=== PATIENT | male | born 1945 | race Caucasian/White ===

== ENCOUNTER 2019-10-06 10:25 | Day surgery (SDC) | payer MEDICARE, SELFPAY ==
[2019-10-03 15:03] VITALS: BMI 39.1
[2019-10-06 10:47] VITALS: BP 151/51; PULSE 86; RESP 18; TEMP 36.2
[2019-10-06] MEDS: sodium chloride 0.9% 1,000 ML 30 ML IV (10:59)
[2019-10-06 11:20] LABS: Glucose Point of Care 208 mg/dL (70-110)
--- NOTE | 2019-10-06 11:22 | P.PN_ITS ---
Pre-Anesthetic Assessment Pre-Anesthetic Assessment: Height/Weight: Height 1.75 m Weight 120.202 kg Temp Pulse Resp BP 97.2 F L 86 18 151/51 10/06/19 10:47 10/06/19 10:47 10/06/19 10:47 10/06/19 10:47 Proposed Procedure: Operation Date: 10/06/19 12:00 Proposed Procedures p Lymph Node Biopsy Cervical 09613 R59.0(Not Applicable) - Piyush Sanchez M.D Last intake: Intake Last Liquid Date 10/06/19 Last Liquid Time 07:30 Last Solid Date 10/05/19 Last Solid Time 17:00 Social: Social History: No alcohol and No tobacco Exam: Pre-Anes Outpt Exam: alert, oriented x 3, clear to auscultation bilaterally and regular rate & rhythm Airway: Submandibular: WNL Cervical ROM: WNL MP: 2 History/ROS: No significant history except as noted CV/HEM: CV/HEM: Afib, CAD, HTN and MD Metabolic: Metabolic: DM and Morbid obesity Musc/skel: Musc/skel: OA/DJD and RA Anesthetic Plan: ASA status: III Anesthesia: Anesthesia Evaluation and MAC Risk of > 500 ml blood loss (7ml/kg in children): No Meds/Allergies Current Medications: Current Medications Generic Name Dose Route Start Last Admin Trade Name Freq PRN Reason Stop Dose Admin Sodium Chloride 1,000 mls @ 30 ml s/hr 10/06/19 09:00 10/06/19 10:59 Sodium Chloride 0.9% IV 10/07/19 08:59 30 mls/hr .Q24H JESSICA Administration PFSH Anesthesia PFSH: Medical History (Updated 10/06/19 @ 11:23 by Rambo Roach MD) Arthritis (Acute) Atrial fibrillation (Acute) Chronic kidney disease (Acute) Coronary artery disease (Acute) Gastroesophageal reflux (Acute) Heart murmur (Acute) Hypertension (Acute) Type 1 diabetes mellitus (Acute) Surgical History (Updated 10/06/19 @ 11:23 by Rambo Roach MD) History of heart surgery (Acute) History of knee replacement (Acute) Social History Smoking and tobacco status: former smoker Alcohol intake: never Data Anesthesia Labs: Other Labs: Laboratory Results - last 48 hr 10/06/19 10:58 POC Glucose 208 Cardiac Studies: No Data to Display
[2019-10-06 13:32] VITALS: BP 131/51; PULSE 60; RESP 16; TEMP 36.7; O2SAT 95
--- NOTE | 2019-10-06 13:49 | P.OP_ITS ---
Operative Report Post-Operative Note: Date of procedure: 10/06/19 Preop Diagnosis: lymphadenopathy Post-op diagnosis: same Procedure Done: lymph node biopsy Specimens removed/disposition: lymph node sent to pathology Surgeon: Piyush Sanchez Anesthesia: MAC Complications: none Condition: stable Disposition: same day Operative Report: Brief History: there is a 74-year-old male with persistent cervical lymphadenopathy despite medical treatment for cultures and alternatives were discussed and informed consent was obtained to proceed with re-biopsy of lymph node per pathology request. Procedure: the patient was taken to the operating room under satisfactory IV sedation the left neck was prepped draped and injected. The previous incision was opened and dissection was carried down to the deep cervical tissue. The lymph node is identified measuring approximately 8 mm in diameter. This was removed. This was sent fresh to pathology pathology was contacted directly to let them know the specimen was being submitted for special studies at their request. The incision was closed w ith layered interrupted Vicryl and chromic suture. Antibiotic ointment was applied. The patient tolerated procedure well. He was taken to recovery room where he was observed. During the observation time. Care instructions and counseling were given including detailed written and verbal instructions. Once the patient at discharge criteria he was discharged in satisfactory and stable condition. Coding Level of Care Code Acute Music Rehabilitation Therapist for Karlos Acosta
[2019-10-06 13:57] VITALS: BP 172/62; PULSE 56; RESP 18; O2SAT 95
[2019-11-06 10:13] LABS: Miscellaneous Test See Scanned Lab Rpt
== END 2019-10-06 14:31 | disposition home or self-care (01) ==
PROVIDERS: Family Provider Nurse Practitioner Family; PCP Nurse Practitioner Family; Visit Provider Otolaryngology
PROC: (CPT 38510; principal; 2019-10-06 12:00)
DX: C82.41 Follicular lymphoma grade IIIb, lymph nodes of head, face, and neck (principal); I48.20 Chronic atrial fibrillation, unspecified; I25.10 Atherosclerotic heart disease of native coronary artery without angina pectoris; E10.22 Type 1 diabetes mellitus with diabetic chronic kidney disease; I12.9 Hypertensive chronic kidney disease with stage 1 through stage 4 chronic kidney disease, or unspecified chronic kidney disease; N18.9 Chronic kidney disease, unspecified; I25.2 Old myocardial infarction; E66.01 Morbid (severe) obesity due to excess calories; Z68.39 Body mass index [BMI] 39.0-39.9, adult; M19.90 Unspecified osteoarthritis, unspecified site; E78.2 Mixed hyperlipidemia; E10.21 Type 1 diabetes mellitus with diabetic nephropathy; E03.9 Hypothyroidism, unspecified; Z82.3 Family history of stroke; Z82.49 Family history of ischemic heart disease and other diseases of the circulatory system; F17.220 Nicotine dependence, chewing tobacco, uncomplicated; Z79.4 Long term (current) use of insulin; Z79.82 Long term (current) use of aspirin
CPT/HCPCS: 38510; 36416; 82962; 87015; 87070; 87102; 87116; 87176; 87205; 87206; 87801; 88184; 88185; 88305; 88341; 88342; 99221; J2001; J2704; J7030

== ENCOUNTER → 2019-10-14 09:49 | Outpatient (BNVA) | payer MEDICARE, SELFPAY | PROVIDERS: Family Provider Nurse Practitioner Family; PCP Nurse Practitioner Family; Visit Provider Otolaryngology | DX: Z48.89 Encounter for other specified surgical aftercare (principal); C85.90 Non-Hodgkin lymphoma, unspecified, unspecified site | CPT/HCPCS: 36415; 80053; 83615; 85025; 99024; 99214 ==

== ENCOUNTER 2019-10-17 07:52 | Outpatient (CLI) | payer MEDICARE, SELFPAY ==
--- NOTE | 2019-10-17 10:39 | ONC FU_ITS ---
Dr. Bob Patient Follow-Up Note Patient: Julius Blake Unit #: [id number]: 1945 Dicatated By: Eliud Bob M.D.Date of Visit:Oct 17, 2019 Onc Med Follow-up/Prog Note Chief Complaint: Lymphoma. 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 He has multiple medical illnesses including hypertension, hyperlipidemia, type 2 diabetes, chronic kidney disease, coronary artery disease, atrial fibrillation, and carotid stenosis. He has had previous coronary artery bypass surgery and right carotid endarterectomy. He had presented with a knot on the left side of his neck, first noticed sometime in August. He was referred to Dr. Sanchez. A noncontrast neck CT on 09/09/2019 showed level 1A submental lymph nodes measuring up to 13 mm, level 1B submandibular lymph nodes, including a node on the left side measuring 17 mm. A level 2 jugular lymph node measured up to 2 cm, and smaller level 2 lymph nodes on the left side measured up to 12 mm. Level 3 nodes on the left side measured up to 13 mm. There were no enlarged lymph nodes noted in the superior mediastinum. On 09/15/2019 he underwent excisional biopsy of a left cervical lymph node. Pathology was nondiagnostic. He then underwent repeat left cervical lymph node biopsy on 10/06/2019. Pathology showed follicular lymphoma, grade 3B. Also reported was a focal proliferation of Langerhans' cells, and a component of Langerhans' cell neoplasm was not excluded. Furthermore, there was noted to be a discrepancy between the flow cytometry studies and the histologic findings. As such, a prognostic profile by FISH has been requested to rule out a double hit lymphoma, and those results are pending. He is seen for further management of the lymphoma. He has not been feeling very good generally, though most of that is chronic. About a month ago he had been feeling ill with fatigue, nausea, anorexia, and night sweating, and during that time his weight had dropped at least 15 pounds. Those symptoms lasted about 3 weeks, but they have mostly resolved now. However, he has chronically had limited activity. His ECOG score is 2. He has shortness of breath with activity. He has cough productive of white sputum. He does not complain of chest pain. He occasionally has heart racing. He currently is not having any GI symptoms. Bowel and bladder function have been okay. He has chronic back pain. He also has pain in his legs, and he has been having muscle cramps in his legs at night frequently. He has no focal neurologic symptoms. Medications: Amiodarone HCl 1 Tablet (of 100 mg) Oral b.i.d., Aspirin 1 Tablet (of 325 mg) Oral daily, Benicar 1 Tablet (of 40 mg) Oral daily, Chlorthalidone 1 Tablet (of 25 mg) Oral daily, Furosemide 1 Tabminder (of 40 mg) Tablet Oral daily PRN, hydrALAZINE HCl 2 Tablet (of 50 mg) Oral t.i.d., Levemir Flexpen Subcutaneous Take as Directed, Lyrica 1 - 2 Capsule (of 75 mg) Oral daily, NovoLIN 70/30 25 Units (of (70-30) 100 Units/mL) Subcutaneous b.i.d., Protonix 1 Capsule (of 40 mg) Tablet, enteric coated Oral daily, Simvastatin 1 Tablet (of 40 mg) Oral daily, Synthroid 1 Tablet (of 150 mcg) Oral daily, Vitamin D 1 Tablet (of 80835 Units) Oral q 7 days Allergies: No Known Allergies. Review of Systems: Constitutional - His energy is fair. He is up and around at home. 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 He had lost about 15 pounds, but it is almost back to his normal. He was having low fever, chills and sweating when he was sick. He has not had any problems in a few weeks. ECOG score is 2, Eyes - No change in vision, ENMT - His hearing has declined. No sinus congestion/drainage. No mouth sores. No sore throat or difficulty swallowing, Hematologic/Lymphatic - He bruises easily, Respiratory - He has shortness of breath with activity. He has a cough that produces white phlegm. No pleuritic pain or hemoptysis, Cardiovascular - No angina pain. His heart racas occasionally, Gastrointestinal - No nausea or vomiting. No heartburn or acid reflux. No diarrhea or constipation. No blood in the stool or black stools, Genitourinary (M) - No dysuria or hematuria. No urinary frequency. No urgency or incontinence, Musculoskeletal - He has back pain. He has cramping in his legs quite often, Integumentary - No skin complications, Neurologic - No headache. He has occasional dizziness. He sometimes feels shaky. No numbness/paresthesias or other focal neurologic symptoms, Psychiatric - No anxiety or depression. No insomnia. Vital Signs: Performed on Oct 17, 2019 08:49 Height - 68.00 in Weight - 272.4 lbs (HIGH) BSA - 2.33 sq.m BMI - 41.42 (HIGH) Temperature - 97.8 F (LOW) Pulse - 59 /min (LOW) Respiration - 24 /min BP - 180/57 mm(hg) (HIGH) O2 Sat - 96 % Pain - 8 Physical Examination: Constitutional - He appears somewhat weak generally, and he has poor mobility, Eyes - Sclerae nonicteric. Conjunctivae clear, ENMT - No lesions noted in the oral cavity, Neck - No mass or thyromegaly. The recent biopsy incision at the base of the posterior left neck appears well-healed. There appears to be a palpable node just inferior to it, Hematologic/Lymphatic - I don't feel any other cervical, clavicular, or axillary adenopathy, Respiratory - Lungs sound clear, Cardiovascular - Heart rhythm is regular. There is a III/ systolic murmur. There is no gallop or rub noted, Abdomen - Distended. Liver and spleen do not appear overtly enlarged. There is no abdominal mass or ascites noted and there is no inguinal adenopathy, Back/Spine - No spine or CVA tenderness noted, Extremities - No edema. Pedal pulses are palpable bilaterally, Integumentary - No rashes. No suspicious skin lesions noted, Neurologic - No focal neurologic deficits noted. Lab/Imaging: His laboratory studies from 10/14/2019 included CBC showing hemoglobin 10.7 g, white blood cell count 6400, and platelet count 257,000. Comprehensive metabolic profile showed elevated BUN and creatinine at 48 and 2.3 mg/dL. Bilirubin and liver enzymes were normal. Albumin was normal at 4.0 g/dL. LDH was mildly elevated at 250/225 U/L. Impression: 1. Patient with follicular lymphoma, grade 3B, involving left cervical lymph nodes. Studies are curling in process to rule out double hit lymphoma. 2. He has chronic illness and generally poor performance status. His other medical illnesses include: 3. Hypertension. 4. Hyperlipidemia. 5. Type 2 diabetes. 6. Chronic kidney disease. 7. Coronary artery disease with previous coronary artery bypass. 8. Atrial fibrillation. 9. Carotid stenosis with previous right carotid endarterectomy. 10. Hypothyroidism. 11. Degenerative arthritis. Plan: The pathology findings were reviewed with the patient and his . We discussed the clinical implications. He has a grade 3B follicular lymphoma, which is at least intermediate grade. Studies are in progress to rule out double hit lymphoma. He has not completed staging, but there appear to be multiple involved nodes in the left side of the neck by CT scan. If his disease is localized to that area, he potentially could be treated with a short course of chemotherapy and involved field radiation. For more extensive disease, a longer course of chemotherapy would be required, and that will be problematic with his significant underlying medical illnesses and poor performance status. At this point I will go ahead and schedule him for a staging PET/CT. I also will schedule an echocardiogram, as we will need to know the status of his LV function for treatment planning. I will see him again for further discussion of treatment with those results are available. Signed By: Eliud Bob M.D. <<Signature on File>>
--- NOTE | 2019-11-11 14:25 | ONC CON_ITS ---
Dr. Bob New Patient Note Patient: Julius Blake Unit #: [id number]: 1945 Dicatated By: Eliud Bob M.D.Date of Visit: Oct 17, 2019 Onc MED New Patient/Consult Referring Physician: Piyush Sanchez M.D. Chief Complaint: Lymphoma. 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 He has multiple medical illnesses including hypertension, hyperlipidemia, type 2 diabetes, chronic kidney disease, coronary artery disease, atrial fibrillation, and carotid stenosis. He has had previous coronary artery bypass surgery and right carotid endarterectomy. He had presented with a knot on the left side of his neck, first noticed sometime in August. He was referred to Dr. Sanchez. A noncontrast neck CT on 09/09/2019 showed level 1A submental lymph nodes measuring up to 13 mm, level 1B submandibular lymph nodes, including a node on the left side measuring 17 mm. A level 2 jugular lymph node measured up to 2 cm, and smaller level 2 lymph nodes on the left side measured up to 12 mm. Level 3 nodes on the left side measured up to 13 mm. There were no enlarged lymph nodes noted in the superior mediastinum. On 09/15/2019 he underwent excisional biopsy of a left cervical lymph node. Pathology was nondiagnostic. He then underwent repeat left cervical lymph node biopsy on 10/06/2019. Pathology showed follicular lymphoma, grade 3B. Also reported was a focal proliferation of Langerhans' cells, and a component of Langerhans' cell neoplasm was not excluded. Furthermore, there was noted to be a discrepancy between the flow cytometry studies and the histologic findings. As such, a prognostic profile by FISH has been requested to rule out a double hit lymphoma, and those results are pending. He is seen for further management of the lymphoma. He has not been feeling very good generally, though most of that is chronic. About a month ago he had been feeling ill with fatigue, nausea, anorexia, and night sweating, and during that time his weight had dropped at least 15 pounds. Those symptoms lasted about 3 weeks, but they have mostly resolved now. However, he has chronically had limited activity. His ECOG score is 2. He has shortness of breath with activity. He has cough productive of white sputum. He does not complain of chest pain. He occasionally has heart racing. He currently is not having any GI symptoms. Bowel and bladder function have been okay. He has chronic back pain. He also has pain in his legs, and he has been having muscle cramps in his legs at night frequently. He has no focal neurologic symptoms. Past Medical History: His medical history includes atrial fibrillation, chronic kidney disease, coronary artery disease, degenerative arthritis, hyperlipidemia, hypertension, hypothyroidism, and type II diabetes. Past Surgical History: His surgical/procedural history includes right carotid endarterectomy in 2009, coronary artery bypass in 2008, and left total knee arthroplasty in 2006. Medications: Amiodarone HCl 1 Tablet (of 100 mg) Oral b.i.d., Aspirin 1 Tablet (of 325 mg) Oral daily, Benicar 1 Tablet (of 40 mg) Oral daily, Chlorthalidone 1 Tablet (of 25 mg) Oral daily, Furosemide 1 Tabminder (of 40 mg) Tablet Oral daily PRN, hydrALAZINE HCl 2 Tablet (of 50 mg) Oral t.i.d., Levemir Flexpen Subcutaneous Take as Directed, Lyrica 1 - 2 Capsule (of 75 mg) Oral daily, NovoLIN 70/30 25 Units (of (70-30) 100 Units/mL) Subcutaneous b.i.d., Protonix 1 Capsule (of 40 mg) Tablet, enteric coated Oral daily, Simvastatin 1 Tablet (of 40 mg) Oral daily, Synthroid 1 Tablet (of 150 mcg) Oral daily, Vitamin D 1 Tablet (of 02715 Units) Oral q 7 days Allergies: No Known Allergies. Social History: Mr. Blake is . Mr. Blake no longer smokes. He has no history of drinking. He has indicated exposure to the following products: chewing tobacco. He has a history of smoking 1 pack of cigarettes daily, but he had quit smoking in 1982. He does chew tobacco, reported at 5 cans weekly. He had some alcohol use when he was a teenager. He quit by age 18. Family History: Father of stroke at age 82. Mother of pancreatic cancer, also at age 82. He had a total of 21 siblings, which included 6 full brothers and 6 full sisters. Two brothers had colon cancer. At least 1 brother and 1 sister had diabetes. A daughter with cerebral palsy at age 33. A grandson has been treated for testicular cancer. Review Of Symptoms: Constitutional - His energy is fair. He is up and around at home. 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 He had lost about 15 pounds, but it is almost back to his normal. He was having low fever, chills and sweating when he was sick. He has not had any problems in a few weeks. ECOG score is 2, Eyes - No change in vision, ENMT - His hearing has declined. No sinus congestion/drainage. No mouth sores. No sore throat or difficulty swallowing, Hematologic/Lymphatic - He bruises easily, Respiratory - He has shortness of breath with activity. He has a cough that produces white phlegm. No pleuritic pain or hemoptysis, Cardiovascular - No angina pain. His heart racas occasionally, Gastrointestinal - No nausea or vomiting. No heartburn or acid reflux. No diarrhea or constipation. No blood in the stool or black stools, Genitourinary (M) - No dysuria or hematuria. No urinary frequency. No urgency or incontinence, Musculoskeletal - He has back pain. He has cramping in his legs quite often, Integumentary - No skin complications, Neurologic - No headache. He has occasional dizziness. He sometimes feels shaky. No numbness/paresthesias or other focal neurologic symptoms, Psychiatric - No anxiety or depression. No insomnia. Vital Signs: Performed on Oct 17, 2019 08:49: 8, 41.42 (HIGH), 2.33 sq.m, 68.00 in, 96 %, 59 /min (LOW), 24 /min, 180/57 mm(hg) (HIGH), 97.8 F (LOW), and 272.4 lbs (HIGH). Physical Examination: Constitutional - He appears somewhat weak generally, and he has poor mobility, Eyes - Sclerae nonicteric. Conjunctivae clear, ENMT - No lesions noted in the oral cavity, Neck - No mass or thyromegaly. The recent biopsy incision at the base of the posterior left neck appears well-healed. There appears to be a palpable node just inferior to it, Hematologic/Lymphatic - I don't feel any other cervical, clavicular, or axillary adenopathy, Respiratory - Lungs sound clear, Cardiovascular - Heart rhythm is regular. There is a III/ systolic murmur. There is no gallop or rub noted, Abdomen - Distended. Liver and spleen do not appear overtly enlarged. There is no abdominal mass or ascites noted and there is no inguinal adenopathy, Back/Spine - No spine or CVA tenderness noted, Extremities - No edema. Pedal pulses are palpable bilaterally, Integumentary - No rashes. No suspicious skin lesions noted, Neurologic - No focal neurologic deficits noted. Impression: 1. Patient with follicular lymphoma, grade 3B, involving left cervical lymph nodes. Studies are curling in process to rule out double hit lymphoma. 2. He has chronic illness and generally poor performance status. His other medical illnesses include: 3. Hypertension. 4. Hyperlipidemia. 5. Type 2 diabetes. 6. Chronic kidney disease. 7. Coronary artery disease with previous coronary artery bypass. 8. Atrial fibrillation. 9. Carotid stenosis with previous right carotid endarterectomy. 10. Hypothyroidism. 11. Degenerative arthritis. Plan: The pathology findings were reviewed with the patient and his . We discussed the clinical implications. He has a grade 3B follicular lymphoma, which is at least intermediate grade. Studies are in progress to rule out double hit lymphoma. He has not completed staging, but there appear to be multiple involved nodes in the left side of the neck by CT scan. If his disease is localized to that area, he potentially could be treated with a short course of chemotherapy and involved field radiation. For more extensive disease, a longer course of chemotherapy would be required, and that will be problematic with his significant underlying medical illnesses and poor performance status. At this point I will go ahead and schedule him for a staging PET/CT. I also will schedule an echocardiogram, as we will need to know the status of his LV function for treatment planning. I will see him again for further discussion of treatment with those results are available. Signed By: Eliud Bob M.D. <<Signature on File>>
== END 2019-10-17 07:53 | disposition home or self-care (01) ==
LOC: ONCMED 07:52
PROVIDERS: Family Provider Nurse Practitioner Family; PCP Nurse Practitioner Family; Referring Provider Otolaryngology; Visit Provider Internal Medicine Medical Oncology
DX: C82.21 Follicular lymphoma grade III, unspecified, lymph nodes of head, face, and neck (principal); E78.5 Hyperlipidemia, unspecified; E11.22 Type 2 diabetes mellitus with diabetic chronic kidney disease; I12.9 Hypertensive chronic kidney disease with stage 1 through stage 4 chronic kidney disease, or unspecified chronic kidney disease; N18.9 Chronic kidney disease, unspecified; I25.10 Atherosclerotic heart disease of native coronary artery without angina pectoris; I48.91 Unspecified atrial fibrillation; G89.29 Other chronic pain; E03.9 Hypothyroidism, unspecified; M19.90 Unspecified osteoarthritis, unspecified site; Z79.4 Long term (current) use of insulin; Z95.1 Presence of aortocoronary bypass graft
CPT/HCPCS: 99205

== ENCOUNTER 2019-10-21 15:09 | Outpatient (CLI) | payer MEDICARE, SELFPAY ==
--- NOTE | 2019-10-21 15:21 | USCV_ITS ---
Julius Blake Age: 74 Gender: M : 1945 Exam Date: 10/21/2019 15:36 Ordering Phys: Eliud Bob MD Technologist: Sirisha Boateng Exam Location: [facility] – [place] Indication: CAD, heart murmur BP: / HR: 67 Rhythm: Sinus Technical Quality: Fair MEASUREMENTS (Male / Female) Normal Values 2D ECHO LV Diastolic Diameter PLAX 4.5 cm 4.2 - 5.9 / 3.9 - 5.3 cm LV Systolic Diameter PLAX 1.5 cm IVS Diastolic Thickness 1.4 cm 0.6 - 1.0 / 0.6 - 0.9 cm IVS Systolic Thickness 2.0 cm LVPW Diastolic Thickness 0.9 cm 0.6 - 1.0 / 0.6 - 0.9 cm LVPW Systolic Thickness 1.9 cm LVOT Diameter 2.0 cm LV Ejection Fraction 2D Teich 93.4 % LV Ejection Fraction MOD 2C 78.7 % LV Ejection Fraction 2C AL 78.1 % LA Diameter 4.6 cm LA Width 4.2 cm LA Height 5.7 cm RA Width 4.4 cm RA Height 4.9 cm M-MODE LV Diastolic Diameter MM 4.2 cm 4.2 - 5.9 / 3.9 - 5.3 cm LV Systolic Diameter MM 2.6 cm LV Ejection Fraction MM Teich 69.6 % IVS Diastolic Thickness MM 1.1 cm 0.6 - 1.0 / 0.6 - 0.9 cm IVS Systolic Thickness MM 1.6 cm LVPW Diastolic Thickness MM 1.1 cm 0.6 - 1.0 / 0.6 - 0.9 cm LVPW Systolic Thickness MM 2.5 cm Aortic Annulus Diameter 2.7 cm LA Ao Ratio MM 1.7 MV E Point Septal Separation 0.3 cm DOPPLER AV Peak Velocity 241.0 cm/s LVOT Peak Velocity 138.0 cm/s AV Area Cont Eq vti 1.6 cm squared AV Area Cont Eq pk 1.9 cm squared MV Peak Velocity 121.0 cm/s MV Area PHT 2.2 cm squared Mitral E to A Ratio 0.9 MV E' Velocity 7.0 cm/s Mitral E to MV E' Ratio 15.2 Mitral E to LV E' Lateral Ratio 13.4 Mitral E to LV E' Septal Ratio 17.7 TR Peak Velocity 98.0 cm/s TR Peak Gradient 3.8 mmHg Right Atrial Pressure 3.0 mmHg Pulmonary Artery Systolic Pressu 6.8 mmHg PV Peak Velocity 151.0 cm/s RV Acceleration Time 0.1 s FINDINGS Left Ventricle Normal left ventricular size and systolic function, EF 74 %. Mild left ventricular hypertrophy. No regional wall motion abnormalities. Grade II/IV diastolic dysfunction, moderately elevated filling pressures. Right Ventricle Appears to be mildly dilated with normal ejection fraction Right Atrium Possibly of normal size Left Atrium Mildly increased left atrial size. Mitral Valve No gross abnormalities noted Aortic Valve Thickened aortic valve. Trace aortic valve regurgitation. Tricuspid Valve Mild tricuspid valve regurgitation. Pulmonic Valve Visualized well Pericardium No pericardial effusion. Aorta Normal aortic annulus size. CONCLUSIONS Normal left ventricular size and systolic function, EF 74 %. Mild left ventricular hypertrophy. No regional wall motion abnormalities. Type II diastolic dysfunction. Right ventricle appears to be mildly dilated with normal ejection fraction Mildly increased left atrial size. Mild tricuspid valve regurgitation. Thickened aortic valve. Trace aortic valve regurgitation. PA pressure could not be calculated because of the poor Doppler signal There is no pericardial effusion. There are no intracardiac masses. Compared to the study from 05/22/2017, there may not be a significant change Dr Migdalia Gonzales MD FACC (Electronically Signed) Final Date: 22 October 2019 13:45 S
== END 2019-10-21 15:10 | disposition home or self-care (01) ==
LOC: RAD 15:16
PROVIDERS: Family Provider Nurse Practitioner Family; PCP Nurse Practitioner Family; Visit Provider Internal Medicine Medical Oncology
DX: I25.10 Atherosclerotic heart disease of native coronary artery without angina pectoris (principal); R01.1 Cardiac murmur, unspecified; I08.2 Rheumatic disorders of both aortic and tricuspid valves
CPT/HCPCS: 93306

== ENCOUNTER 2019-11-17 11:04 | Day surgery (SDC) | payer MEDICARE, SELFPAY ==
[2019-11-16 08:01] VITALS: BMI 39.5
--- NOTE | 2019-11-17 | SCC_ITS ---
Procedure Done: Right subclavian Port-A-Cath placement PowerPort 13.1 seconds of fluoroscopic guidance, for a cumulative dose of 3.37 mGy, was provided to Dr. Abdi by the radiology department. C-arm images of the chest were saved for the patient's permanent record. [facility]ENTERRachelle
[2019-11-17 11:40] VITALS: BP 164/51; PULSE 63; RESP 18; TEMP 36.3; O2SAT 96
[2019-11-17 12:04] LABS: Glucose Point of Care 208 mg/dL (70-110)
[2019-11-17] MEDS: sodium chloride 0.9% 1,000 ML 30 ML IV (12:05)
--- NOTE | 2019-11-17 12:05 | ANES.PREANE2 ---
Pre-Anesthetic Assessment Pre-Anesthetic Assessment: Height/Weight: Height 1.73 m Weight 117.934 kg Temp Pulse Resp BP Pulse Ox 97.4 F L 63 18 164/51 96 11/17/19 11:40 11/17/19 11:40 11/17/19 11:40 11/17/19 11:40 11/17/19 11:40 Preop Diagnosis: Follicular lymphoma Proposed Procedure: Operation Date: 11/17/19 12:35 Proposed Procedures p Portacath Placement 44907 C85.90(Not Applicable) - Alvin Abdi MD Last intake: Intake Last Liquid Date 11/17/19 Last Liquid Time 20:00 Last Solid Date 11/16/19 Last Solid Time 20:00 Social: Social History: Tobacco (chews) and No alcohol Exam: Pre-Anes Outpt Exam: alert, oriented x 3, clear to auscultation bilaterally and regular rate & rhythm Airway: Submandibular: WNL Cervical ROM: WNL MP: 2 Dentition: Other (teeth ok) History/ROS: No significant history except as noted Pulmonary: Pulmonary: HUGHES CV/HEM: CV/HEM: Afib, CAD and HTN : : Chronic renal failure Hepatic: Hepatic: None reported GI: GI: GERD (well controlled) Metabolic: Metabolic: DM, Hyperlipidemia and Morbid obesity Musc/skel: Musc/skel: Lower Back Pain and OA/DJD Neuropsych: Neuropsych: None reported Anesthetic Plan: ASA status: 4 Anesthesia: Anesthesia Evaluation and MAC Risk of > 500 ml blood loss (7ml/kg in children): No PFSH Anesthesia PFSH: Medical History Arthritis Atrial fibrillation Chronic kidney disease Coronary artery disease Gastroesophageal reflux Heart murmur Hypertension Type 1 diabetes mellitus Surgical History History of heart surgery History of knee replacement Family History Father Stroke Hypertension Brother Hypertension Sister Hypertension Social History Smoking and tobacco status: former smoker Alcohol intake: never Data Anesthesia Other Labs: Laboratory Results - last 48 hr 11/17/19 11:58 POC Glucose 208 Cardiac Studies: No Data to Display
[2019-11-17 12:09] LABS: Basophils # 0.1 10^3/uL (0.0-0.1); Basophils % 1.2 %; Eosinophils # 0.2 10^3/uL (0.0-0.8); Hematocrit 33.8 % (42.0-52.0); Hemoglobin 10.7 g/dL (11.7-16.6); Lymphocytes # 1.6 10^3/uL (0.8-4.8); Lymphocytes % 27.9 %; Mean Corpuscular HGB Conc 31.7 g/dL (30.0-36.0); Mean Platelet Volume 10.9 fL (7.4-10.4); Monocytes # 0.7 10^3/uL (0.2-0.9); Monocytes % 11.4 %; Neutrophils # 3.2 10^3/uL (1.8-7.7); Neutrophils % 55.2 %; Nucleated Red Blood Cells % 0 %; Platelet Count 189 10^3/cmm (130-400); Red Blood Count 3.45 10^6/uL (4.1-5.3); Red Cell Distribution Width 12.6 % (12.1-15.1); White Blood Count 5.8 10^3/uL (4.0-10.0)
--- NOTE | 2019-11-17 12:17 | PM.HPUD ---
H&P update H&P Update: DATE OF SURGERY/PROCEDURE: 11/17/19 DATE H&P PERFORMED: 11/14/19 H&P UPDATE INFORMATION: H&P completed within last 30 days and No changes to prior documentation PREOP DIAGNOSIS: Follicular lymphoma PRIMARY INDICATION FOR PROCEDURE: The same PLANNED PROCEDURE: Operation Date: 11/17/19 12:35 Proposed Procedures p Portacath Placement 05853 C85.90(Not Applicable) - Alvin Abdi MD Full H&P Medications/Allergies: Current Medications: Current Medications Generic Name Dose Route Start Last Admin Trade Name Freq PRN Reason Stop Dose Admin Sodium Chloride 1,000 mls @ 30 ml s/hr 11/17/19 11:30 11/17/19 12:05 Sodium Chloride 0.9% IV 11/18/19 11:29 30 mls/hr .Q24H JESSICA Administration Perinent History: Medical/Surgical History: Medical History (Updated 10/14/19 @ 10:50 by Piyush Sanchez MD) Arthritis Atrial fibrillation Chronic kidney disease Coronary artery disease Gastroesophageal reflux Heart murmur Hypertension Type 1 diabetes mellitus Family History: Family History (Updated 09/25/19 @ 12:05 by Susi Epstein LPN) Father Stroke Hypertension Brother Hypertension Sister Hypertension Social History: Social History Smoking and tobacco status: former smoker Alcohol intake: never
[2019-11-17] MEDS: insulin regular-human 100 units/1 mL 3 UNIT IVP (12:18)
--- NOTE | 2019-11-17 12:30 | SC_ITS ---
WS: [id number] C-arm FL for CVA 80409 REASON FOR EXAM: portacath placement FINDINGS: C-arm utilization for placement of a Port-A-Cath from the right side. The tip of the Port-A -Cath appears to be in the middle superior vena cava on the right side. The positioning appears to be satisfactory there is no evidence of pneumothorax. SC/C-arm FL for CVA 10251 IMPRESSION: Adequate placement of a Port-A-Cath
[2019-11-17] MEDS: lidocaine 2% INJ 20 mL INJECTION (12:57)
[2019-11-17] MEDS: heparin, porcine 1,000 unit/mL INJ 10 mL 10000 UNIT INJECTION (12:57)
--- NOTE | 2019-11-17 13:28 | XR_ITS ---
WS: [id number] XR chest 1V portable [id number] REASON FOR EXAM: Status post right subclavian vein Port-A-Cath placement FINDINGS: Right-sided subclavian catheter seen in the lower superior vena cava in good position. Previous coronary bypass changes are noted. There is no pneumothorax seen. The lung harden are well aerated no pneumonia, pleural effusion, pulmonary edema, or mass effect. XR/XR chest 1V portable [id number] IMPRESSION: Right subclavian vein lauro catheter placement satisfactory. Coronary bypass changes.
--- NOTE | 2019-11-17 13:28 | PM.OP ---
Operative Report Date of procedure: November 17, 2019 Pre-op Diagnosis: Follicular lymphoma requiring Port-A-Cath placed Post-op diagnosis: same Procedure Done: Right subclavian Port-A-Cath placement PowerPort Interpretation of fluoroscopy through the entire procedure was done by me Implants: Right subclavian PowerPort Surgeon: Alvin Abdi Specialist Physician: Surgical techtank [place] Circulating nurse Cathleen Vásquez Anesthesia: MAC Estimated blood loss (mL): 5 Condition: stable Disposition: same day Brief History: This is a pleasant 74 years old gentleman referred to my office for Port-A-Cath placement due to recent diagnosis of follicular lymphoma. Plan of care; After thorough history physical examination and reviewing the chart, I counseled the patient for Port-A-Cath placement, indications, risks including pneumothorax and injury of major vascular structures, benefits, and alternatives were all discussed with the patient, patient understands and is interested to proceed. Informed consent per chart Assurance and education All questions have been answered Procedure: Patient was identified in the holding area and taken to the operative room and placed in supine position IV propofol was given by the anesthesia provider ,both arms were tucked,Time-out was done verifying the patient's name/date of /planned procedure and destination after the procedure, all were in agreement. SCDs confirmed to be functioning, preoperative antibiotics administered per protocol, and beta kylie protocol was confirmed, appropriate positioning of the patient was done by me. Medications were reviewed to assess for anticoagulant usage. Risks and benefits and prevention of central line associated blood stream infection (CLABSI) were discussed with the patient/CPOA, and a consent was obtained. Monitors were in place and monitored throughout the procedure. All necessary supplies were available prior to start. Hand hygiene was completed prior to starting. Maximum barrier technique was utilized including a sterile gown, sterile gloves with a hat and mask. Site was was prepped with [chlorhexidine] and a full body drape was placed. 5 mL of 2% lidocaine was injected into the skin with a 25 gauge needle. Prep& drape was done under the usual sterile technique, lidocaine 2% was injected at the site of the stick, started by right subclavian stick that retrieved venous blood was obtained from the first stick, a guidewire was then threaded and under the guidance of fluoroscopy position was confirmed to be in the IVC and my interpretation, there was no PVC changes, at that point the guidewire was secured to the drapes with a hemostat and the needle was taken out, attention was then deviated towards creation of a pocket for the port were lidocaine 2% was injected using an 15 blade knife skin incision was created dissection using the Bovie to create a pocket for the Port-A-Cath to be accommodated, hemostasis was secured, after the port being appropriately flushed it was inserted into the pocket and a tunneler was used to accommodate the catheter of the port cath to be delivered through the incision first created at the site of the stick, at that point under fluoroscopy an estimated length was measured for the catheter and was cut at the designed level, followed by that a dilator with the sheath introduced onto the guidewire the dilator and the wire were retrieved and the catheter of the port was introduced via the sheath where it was peeled off and the catheter maintained to be in the SVC that was confirmed with fluoroscopy, and the fluoroscopy interpretation was done by me throughout the entire procedure. The port was secured to the fascia with using Prolene sutures, 4-0 Vicryl deep subdermal interrupted sutures, skin was then closed by 4-0 Monocryl as subcuticular closure. The stick site was closed by 4-0 Monocryl and Dermabond was used followed by dressing. Patient tolerated the procedure well was taken to the recovery area Count was correct at the end of the procedure I was present for the whole entire procedure Position of the catheter was checked with a postoperative chest x-ray and it was in good position without evidence of pneumothorax
[2019-11-17 13:56] VITALS: BP 140/48; PULSE 55; RESP 18; TEMP 36.4; O2SAT 95
[2019-11-17 14:09] VITALS: BP 183/65; PULSE 53; RESP 18; O2SAT 97
[2019-11-17 14:50] LABS: Alanine Aminotransferase 21 U/L (0-41); Alkaline Phosphatase 62 IU/L (40-130); Anion Gap 17.1 (5-19); Aspartate Amino Transferase 24 U/L (0-40); Blood Urea Nitrogen 46 mg/dL (8-23); Calcium 9.7 mg/dL (8.5-10.5); Carbon Dioxide 23 mmol/L (22-29); Chloride 104 mmol/L (98-107); Creatinine Clr Calc Pharmacy 39.8186; Globulin 3.2 g/dL (1.3-4.6); Glucose 220 mg/dL (65-115); Lactate Dehydrogenase 244 U/L (135-225); Potassium 5.1 mmol/L (3.5-5.1); Sodium 139 mmol/L (136-145); Total Bilirubin 0.4 mg/dL (0.15-1.2); Total Protein 7.2 g/dL (6.6-8.7)
[2019-11-17 15:06] LABS: Hepatitis B Surface AB. 3.5 (0-8.5); Hepatitis B Surface Antigen. Non-Reactive (Nonreactive)
== END 2019-11-17 14:32 | disposition home or self-care (01) ==
PROVIDERS: Internal Medicine Medical Oncology; Family Provider Nurse Practitioner Family; PCP Nurse Practitioner Family; Visit Provider Surgery
PROC: (CPT 36556; principal; 2019-11-17 12:35)
DX: C82.90 Follicular lymphoma, unspecified, unspecified site (principal); M19.90 Unspecified osteoarthritis, unspecified site; I48.91 Unspecified atrial fibrillation; I25.10 Atherosclerotic heart disease of native coronary artery without angina pectoris; K21.9 Gastro-esophageal reflux disease without esophagitis; E11.22 Type 2 diabetes mellitus with diabetic chronic kidney disease; I12.9 Hypertensive chronic kidney disease with stage 1 through stage 4 chronic kidney disease, or unspecified chronic kidney disease; N18.9 Chronic kidney disease, unspecified; F17.220 Nicotine dependence, chewing tobacco, uncomplicated; E78.5 Hyperlipidemia, unspecified; E66.01 Morbid (severe) obesity due to excess calories; Z68.39 Body mass index [BMI] 39.0-39.9, adult
CPT/HCPCS: 36556; 12345; 36415; 36416; 71045; 76000; 77001; 80053; 82962; 83615; 85025; 86705; 86706; 87340; 96365; 96374; C1788; J0690; J1644; J1815; J2001; J2704; J7030

== ENCOUNTER 2019-11-25 05:36 | Outpatient (RCR) | payer MEDICARE, SELFPAY ==
[2019-11-18] MEDS: sodium chloride 0.9% 1,000 ML 999 ML IV (09:24)
[2019-11-18] MEDS: acetaminophen 325 mg Tablet 650 MG PO (09:24)
[2019-11-18] MEDS: pegfilgrastim 6 mg/0.6 mL Kit (onpro) SUBCUT (16:35)
--- NOTE | 2019-11-20 15:56 | ONC FU_ITS ---
Jason Servin Patient Note Patient: Julius Blake Unit #: [id number]: [id number] Dictated By: Tamera GranadosDate of Visit: Nov 18, 2019 Onc MED Follow-Up/Prog Note Chief Complaint: Lymphoma. 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 He has multiple medical illnesses including hypertension, hyperlipidemia, type 2 diabetes, chronic kidney disease, coronary artery disease, atrial fibrillation, and carotid stenosis. He has had previous coronary artery bypass surgery and right carotid endarterectomy. He had presented with a knot on the left side of his neck, first noticed sometime in August. He was referred to Dr. Sanchez. A noncontrast neck CT on 09/09/2019 showed level 1A submental lymph nodes measuring up to 13 mm, level 1B submandibular lymph nodes, including a node on the left side measuring 17 mm. A level 2 jugular lymph node measured up to 2 cm, and smaller level 2 lymph nodes on the left side measured up to 12 mm. Level 3 nodes on the left side measured up to 13 mm. There were no enlarged lymph nodes noted in the superior mediastinum. On 09/15/2019 he underwent excisional biopsy of a left cervical lymph node. Pathology was nondiagnostic. He then underwent repeat left cervical lymph node biopsy on 10/06/2019. Pathology showed follicular lymphoma, grade 3B. Also reported was a focal proliferation of Langerhans' cells, and a component of Langerhans' cell neoplasm was not excluded. Furthermore, there was noted to be a discrepancy between the flow cytometry studies and the histologic findings. As such, a prognostic profile by FISH has been requested to rule out a double hit lymphoma, and those results were resulted on 11/07/2019. High-grade FISH lymphoma panel reportedhyperdiploidy of the cells and the cells were negative ffor BCL6 and MYC arrangements. The cells were also negative for IGH-BCL2. These studies show there is a monoclonal population with the hyperdiploidy present. The lack of BCL 6 and [place] rearrangements rule out that this is a double hit lymphoma. The final diagnosis is Follicular lymphoma grade 3B. Baseline echocardiogram on 10/21/2019 reported a normal left ventricular size and systolic function with an EF of 74% he had mild left ventricular hypertrophy grade 2 of 4 diastolic dysfunction, moderately elevated filling pressures. Right ventricle appears to be mildly dilated with normal ejection fraction. There was a thickened aortic valve with trace aortic valve regurgitation, mild tricuspid valve regurgitation compared to the study from 05/22/2017 is reported that there may not be a significant change ???Dr. Gonzales read the echocardiogram. He did have staging PET CT on 11/11/2019 at [facility] in [place]. The impressions were hypermetabolic nasopharyngeal soft tissue in addition to the mildly metabolic left cervical chain lymph nodes ( a few shotty lymph nodes within the left lower cervical chain just cephalic to the clavicle that show a max SUV of 2.43. There were also a few shotty left cervical chain lymph nodes at the level of the thyroid cartilage that showed a max SUV of 3.66. The hypermetabolic soft tissue mass involving the right nasopharyngeal soft tissue is measured with a max SUV of 6.09 on the right and 4.34 on the left). There was no suspicious focal uptake in the chest abdomen or pelvis. The spleen was not enlarged. His Hep B panel was negative. Mr Blake was advised by Dr Bob to pursue 4 cyles or R-CHOP followed by possible radiation. Mr Blake had port a cath placement by Dr Abdi on 11/17/2019. He is here today for followup. He is due to start cycle 1 R-CHOP today. Mr Blake is accompanied by his family member today. He has no new concerns and was pleased to hear the results of the recent PET/CT. He denies any fever or chills within the last 72 hours. He states his appetite is fair- it koki comes and goes . He denies any pain. He states his breathing is normal. He said no new shortness of breath and denies orthopnea. He denies chest pain or palpitations. He has had no nausea or vomiting. He states overall he feels he is doing pretty good and feels better than when he was in the hospital. His ECOG is 2 Past Medical History: Atrial fibrillation Chronic kidney disease Coronary artery disease Degenerative arthritis Hyperlipidemia Hypertension Hypothyroidism Type II diabetes Past Surgical History: Right subclavian venous access device Dr Abdi ([facility]) in 2019 Right carotid endarterectomy in 2009 Coronary artery bypass in 2008 Left total knee arthroplasty in 2006 Allergies: No Known Allergies. Medications: Amiodarone HCl 1 Tablet (of 100 mg) Oral b.i.d. Aspirin 1 Tablet (of 325 mg) Oral daily Benicar 1 Tablet (of 40 mg) Oral daily Chlorthalidone 1 Tablet (of 25 mg) Oral daily Furosemide 1 Tabminder (of 40 mg) Tablet Oral daily PRN hydrALAZINE HCl 2 Tablet (of 50 mg) Oral t.i.d. Levemir Flexpen Subcutaneous Take as Directed Lyrica 1 - 2 Capsule (of 75 mg) Oral daily NovoLIN 70/30 25 Units (of (70-30) 100 Units/mL) Subcutaneous b.i.d. Protonix 1 Capsule (of 40 mg) Tablet, enteric coated Oral daily Simvastatin 1 Tablet (of 40 mg) Oral daily Synthroid 1 Tablet (of 150 mcg) Oral daily Vitamin D 1 Tablet (of 08066 Units) Oral q 7 days PRN Family History: Mr. Blake's mother at age 84: pancreatic cancer. Mr. Blake's father at age 84: stroke. Mr. Blake has 1 brother who is . Father of stroke at age 82. Mother of pancreatic cancer, also at age 82. He had a total of 21 siblings, which included 6 full brothers and 6 full sisters. Two brothers had colon cancer. At least 1 brother and 1 sister had diabetes. A daughter with cerebral palsy at age 33. A grandson has been treated for testicular cancer. Social History: Mr. Blake is . Mr. Blake no longer smokes. He has no history of drinking. He has indicated exposure to the following products: chewing tobacco. He has a history of smoking 1 pack of cigarettes daily, but he had quit smoking in 1982. He does chew tobacco, reported at 5 cans weekly. He had some alcohol use when he was a teenager. He quit by age 18. Review Of Symptoms: Constitutional Denies fevers, chills, night sweats, excessive fatigue or weight loss. Allergic/Immunologic No reactions. Eyes Denies significant visual changes. No diplopia. No amaurosis. ENMT Denies changes in hearing, sore throat, mouth sores, difficulty or changes in swallowing ability, and/or sinus drainage. Hematologic/Lymphatic Denies easy bruising or bleeding. The patient denies any tender or palpable lymph nodes. Bruising around port placement site from yesterday's insertion. Respiratory Denies dyspnea on exertion, chest pain, cough or hemoptysis. Denies orthopnea. Cardiovascular Denies anginal chest pain, palpitations or orthopnea. Gastrointestinal Denies nausea, vomiting, diarrhea, GI bleeding, or constipation. Denies change in bowel habits and/or stool color, no heartburn or early satiety. Genitourinary (M) Denies hematuria, dysuria, increased frequency, urgency, hesitancy or incontinence. Musculoskeletal Denies joint pain, swelling or redness. No decreased range of motion. Integumentary Denies chronic rashes, inflammation, ulcerations or skin changes. Neurologic Denies headache, blurred vision, and no areas of focal weakness or numbness. Normal gait. No sensory problems. Psychiatric Denies insomnia, depression, lizett or mood swings. Vital Signs: Performed on Nov 18, 2019 16:50 Height - 68.00 in Temperature - 97.1 F (LOW) Pulse - 57 /min (LOW) Respiration - 18 /min BP - 163/58 mm(hg) (HIGH) O2 Sat - 95 % (LOW) Pain - 0 Fatigue - 0 Performed on Nov 18, 2019 08:20 Height - 68.00 in Weight - 274.4 lbs (HIGH) BSA - 2.34 sq.m BMI - 41.72 (HIGH) Temperature - 97.5 F (LOW) Pulse - 62 /min Respiration - 20 /min BP - 184/47 mm(hg) (HIGH) O2 Sat - 97 % Pain - 8,2 - Ambulatory/capable of all self-care, unable to perform any work activities. Up and about more than 50% of waking hours. (ECOG) Physical Examination: Constitutional Alert, oriented, no acute distress. Skin pink, warm and dry. Head Normocephalic; atraumatic. Eyes Conjunctivae and sclerae are clear and without icterus. Pupils are reactive and equal. Neck Supple without masses or thyromegaly. No jugular venous distension. Hematologic/Lymphatic No petechiae or purpura. No tender or palpable lymph nodes in the cervical or supraclavicular areas. Respiratory Lungs are clear to auscultation without rhonchi or wheezing. Cardiovascular Regular rate and rhythm of heart without murmurs,clicks, gallops or rubs. Chest Chest is symmetric without chest wall deformities. Right sided upper chest wall port a cath insertion site is noted to have moderate bruising below the port site extending toward axilla. No obvious bleeding. No swelling or warmth. Breasts Abdomen Non-tender, non-distended, no masses or No guarding or rebound tenderness. No pulsatile masses. Back/Spine Non-tender to palpation. Extremities No visible deformities, no cyanosis, clubbing or edema. Musculoskeletal No tenderness or swelling, normal range of motion without obvious weakness. Integumentary No rashes or lesions. Neurologic No sensory or motor deficits, normal cerebellar function, assisted gait with cane. Psychiatric Alert and oriented times three. Coherent speech. Verbalizes understanding of our discussions today. Laboratory:Test performed on Nov 18, 2019 12:01 TSH 4.50 uIU/mL Test performed on Nov 18, 2019 09:09 WBC 5.8 10^3/uL RBC 3.45 10^6/uL HGB 10.7 g/dL HCT 33.8 % MCV 98 fl MCH 31.0 pg MCHC 31.7 g/dL RDW 12.6 % Platelet Count 189 10^3/uL MPV 10.9 fl Neutrophils 3.2 10^3/uL Lymphocytes 1.6 10^3/uL Monocytes 0.7 10^3/uL Eosinophils 0.2 10^3/uL Basophils 0.1 10^3/uL Neutrophil % 55.2 % Lymphocyte % 27.9 % Monocyte % 11.4 % Eosinophil % 4.0 % Basophils % 1.2 % Test performed on Nov 17, 2019 12:01 Manual Lymphocytes 27.9 % Manual Monocytes 11.4 % Manual Eosinophils 4.0 % Manual Basophils 1.2 % Impression: 1. Patient with follicular lymphoma, grade 3B, involving left cervical lymph nodes. Studies are curling in process to rule out double hit lymphoma. 2. He has chronic illness and generally poor performance status. His other medical illnesses include: 3. Hypertension. 4. Hyperlipidemia. 5. Type 2 diabetes. 6. Chronic kidney disease. 7. Coronary artery disease with previous coronary artery bypass. 8. Atrial fibrillation. 9. Carotid stenosis with previous right carotid endarterectomy. 10. Hypothyroidism. 11. Degenerative arthritis. The pathology findings were reviewed with the patient and his per Dr Bob. He discussed the clinical implications with Mr and Mrs Blake.. He has a grade 3B follicular lymphoma, which is at least intermediate grade. Studies did rule out double hit lymphoma. He has not completed staging, but there appear to be multiple involved nodes in the left side of the neck by CT scan. If his disease is localized to that area, he potentially could be treated with a short course of chemotherapy and involved field radiation. For more extensive disease, a longer course of chemotherapy would be required, and that will be problematic with his significant underlying medical illnesses and poor performance status. The recommended treatment plan at this time is 4 cycles of R-CHOP. Plan: 1. Proceed with cycle 1 day 1 R-CHOP. 2. Premedicate with standard high risk antiemetics--Compazine and Ativan prn use at home. 3. Labs from 11/17/2019 were reviewed in detail and discussed with and Mrs. Blake and a copy was given to them. WBC 5.8, hemoglobin 10.7, platelets 189,000 ANC is 3200. His hepatitis B panel was negative his chemistry revealed a creatinine of 2.0 which is stable for him. His random glucose was 220. His LDH is 244. LFTs are normal. I did request a TSH today. It was within normal limits. 4. We will plan for follow-up in 3 weeks with CBC, CMP and LDH. He will have weekly interim counts which could be done through home lab if he desires. 5. The patient and family were informed of treatment plan and specific drugs were discussed. We also discussed how Rituxan works and identified common side effects including infusion reactions (reported in 32-77% of first administration doses) such as drug hypersensitivity/allergic reactions or anaphylaxis, chills/rigors, bronchospasms, hives/rash, fever, hypo/hypertension, palpitations, tachycardia, nausea, anxiety. Diarrhea, abdominal pain, rash, itching, fatigue, elevated LFT's, night sweats, lymphocytopenia, cough, anemia, bone pain, angioedema amongst others have been reported post administration. The risk of infusion reaction with the first dose has been reported from 32-77% of patients. has occured within 24 hours of adminstration. They have also been informed how to contact the clinic with side effects or symptoms, including but not limited to shortness of breath, fever greater than 100.4???, chills, sore throat, bleeding or bruising that is not explained or mouth sores, cough, nasal discharge, diarrhea, constipation, nausea and/or vomiting not relieved with medications on hand at home, as well as any other concern or question they may have. Our hours are 8:00 a.m. to 4:30 p.m. on Sunday through and 8-12:00 on Sunday. However, someone is information security manager 24 hours per day and they have been advised to contact the [facility] at if it is after hours. We have also discussed potential long-term side effects of chemotherapy including secondary cancers, infertility, pulmonary complications, cardiac complications, and again peripheral neuropathy. We have discussed that they certainly need to let us know before taking any antioxidants or herbal or further dietary supplements, as we are unsure of how these agents react with chemotherapy and we request that they avoid these products for now. They were informed that it is okay to take multivitamins at normal doses. They verbally state that they understand to take all medications as directed by their healthcare provider unless otherwise indicated. They also verbalized understanding to leave the pressure dressing on the intravenous administration site for at least two hours after treatment. Instructions for oral care with baking soda and salt water rinses as well as a guide for use of [id number] medication were provided with the treatment plan. They have been given a written patient treatment plan, of which a copy is in the chart, as well as specific drug information. They have no questions and verbalized understanding and are willing to proceed with chemotherapy at this time. The majority of this visit was spent in face to face communication with this patient and/or his/her family in regards to plan of care, side effect identification and management. 6. Mr. Blake was instructed to contact us in the interim should questions or problems arise. Signed By: Indiana GranadosNBaljeet. <<Signature on File>>
[2019-11-24 08:44] LABS: Basophils # 0.1 10^3/uL (0.0-0.1); Basophils % 2.2 %; Eosinophils # 0.1 10^3/uL (0.0-0.8); Eosinophils % 2.4 %; Hematocrit 32.4 % (42.0-52.0); Hemoglobin 10.1 g/dL (11.7-16.6); Lymphocytes # 0.9 10^3/uL (0.8-4.8); Lymphocytes % 21.8 %; Mean Corpuscular HGB Conc 31.2 g/dL (30.0-36.0); Mean Corpuscular Hemoglobin 31.8 pg (28.0-34.0); Mean Corpuscular Volume 101.9 fL (80-94); Mean Platelet Volume 12.8 fL (7.4-10.4); Monocytes # 0.2 10^3/uL (0.2-0.9); Monocytes % 3.6 %; Neutrophils # 2.2 10^3/uL (1.8-7.7); Neutrophils % 53.5 %; Nucleated Red Blood Cells % 0 %; Platelet Count 101 10^3/cmm (130-400); Red Blood Count 3.18 10^6/uL (4.1-5.3); Red Cell Distribution Width 13.2 % (12.1-15.1); White Blood Count 4.2 10^3/uL (4.0-10.0)
[2019-11-24 09:11] LABS: Alanine Aminotransferase 19 U/L (0-41); Albumin Level 3.4 g/dL (3.5-5.2); Alkaline Phosphatase 85 IU/L (40-130); Anion Gap 15.5 (5-19); Aspartate Amino Transferase 21 U/L (0-40); Blood Urea Nitrogen 52 mg/dL (8-23); Carbon Dioxide 25 mmol/L (22-29); Chloride 103 mmol/L (98-107); Globulin 3.1 g/dL (1.3-4.6); Glucose 93 mg/dL (65-115); Potassium 5.5 mmol/L (3.5-5.1); Sodium 138 mmol/L (136-145); Thyroid Stimulating Hormone 9.07 uIU/mL (0.27-4.20); Total Bilirubin 0.6 mg/dL (0.15-1.2); Total Protein 6.5 g/dL (6.6-8.7)
[2019-11-24 09:40] LABS: Slide Review Slide Review Perform
--- NOTE | 2019-11-29 17:44 | ONC FU_ITS ---
Jason Servin Patient Note Patient: Julius Blake Unit #: [id number]: 1945 Dictated By: Tamera GranadosDate of Visit: Nov 25, 2019 Onc MED Follow-Up/Prog Note Chief Complaint: Lymphoma. 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 He has multiple medical illnesses including hypertension, hyperlipidemia, type 2 diabetes, chronic kidney disease, coronary artery disease, atrial fibrillation, and carotid stenosis. He has had previous coronary artery bypass surgery and right carotid endarterectomy. He had presented with a knot on the left side of his neck, first noticed sometime in August. He was referred to Dr. Sanchez. A noncontrast neck CT on 09/09/2019 showed level 1A submental lymph nodes measuring up to 13 mm, level 1B submandibular lymph nodes, including a node on the left side measuring 17 mm. A level 2 jugular lymph node measured up to 2 cm, and smaller level 2 lymph nodes on the left side measured up to 12 mm. Level 3 nodes on the left side measured up to 13 mm. There were no enlarged lymph nodes noted in the superior mediastinum. On 09/15/2019 he underwent excisional biopsy of a left cervical lymph node. Pathology was nondiagnostic. He then underwent repeat left cervical lymph node biopsy on 10/06/2019. Pathology showed follicular lymphoma, grade 3B. Also reported was a focal proliferation of Langerhans' cells, and a component of Langerhans' cell neoplasm was not excluded. Furthermore, there was noted to be a discrepancy between the flow cytometry studies and the histologic findings. As such, a prognostic profile by FISH has been requested to rule out a double hit lymphoma, and those results were resulted on 11/07/2019. High-grade FISH lymphoma panel reportedhyperdiploidy of the cells and the cells were negative ffor BCL6 and MYC arrangements. The cells were also negative for IGH-BCL2. These studies show there is a monoclonal population with the hyperdiploidy present. The lack of BCL 6 and [place] rearrangements rule out that this is a double hit lymphoma. The final diagnosis is Follicular lymphoma grade 3B. Baseline echocardiogram on 10/21/2019 reported a normal left ventricular size and systolic function with an EF of 74% he had mild left ventricular hypertrophy grade 2 of 4 diastolic dysfunction, moderately elevated filling pressures. Right ventricle appears to be mildly dilated with normal ejection fraction. There was a thickened aortic valve with trace aortic valve regurgitation, mild tricuspid valve regurgitation compared to the study from 05/22/2017 is reported that there may not be a significant change ???Dr. Gonzales read the echocardiogram. He did have staging PET CT on 11/11/2019 at [facility] in [place]. The impressions were hypermetabolic nasopharyngeal soft tissue in addition to the mildly metabolic left cervical chain lymph nodes ( a few shotty lymph nodes within the left lower cervical chain just cephalic to the clavicle that show a max SUV of 2.43. There were also a few shotty left cervical chain lymph nodes at the level of the thyroid cartilage that showed a max SUV of 3.66. The hypermetabolic soft tissue mass involving the right nasopharyngeal soft tissue is measured with a max SUV of 6.09 on the right and 4.34 on the left). There was no suspicious focal uptake in the chest abdomen or pelvis. The spleen was not enlarged. His Hep B panel was negative. Mr Blake was advised by Dr Bob to pursue 4 cyles or R-CHOP followed by possible radiation. Mr Blake had port a cath placement by Dr Abdi on 11/17/2019. He started cycle 1 R-CHOP on 11/18/2019. He did receive growth factor support with Neulasta OnPro. He is here today for day 8 follow-up. He states that the left cervical node/ nodule he could feel before has already improved. He states he can hardly feel it now. He has used his sliding scale insulin twice. Otherwise he states his blood sugars are doing well. He noticed the blood sugars more so after he took the prednisone. He states for the last 3 to 4 days he has had hip, leg, lower back, and sternal pain. He states he just is not sure what is causing it. We discussed that he did have Neulasta and this most common side effect typically is bone pain. He describes the pain as just a achy stabbing pain at times. He did take some Tylenol which is some but did not completely relieve the pain. He had not been taking Claritin as he did not recognize that this could be that bone pain from the Neulasta. We discussed this at length and they will start Claritin today. We also discussed that he does have experience with hydrocodone 01/31/2025 in the past and tolerated this well. He states he has some at home. He states his only a few tablets. He was encouraged that he could try these and given prescription if he decides that he needs a refill. Otherwise he states he is had no nausea or vomiting. His appetite is good. His energy is good. He denies fever or chills. He has had no mouth sores or sore throat or difficulty swallowing. He denies any diarrhea. He denies any rash. He states other than the bone pain he feels that he is doing really good. His ECOG is 1. Past Medical History: Atrial fibrillation Chronic kidney disease Coronary artery disease Degenerative arthritis Hyperlipidemia Hypertension Hypothyroidism Type II diabetes Past Surgical History: Right subclavian venous access [place] Abdi [place] [place] Right carotid endarterectomy in 2009 Coronary artery bypass in 2008 Left total knee arthroplasty in 2006 Allergies: No Known Allergies. Medications: Amiodarone HCl 1 Tablet (of 100 mg) Oral b.i.d. Aspirin 1 Tablet (of 325 mg) Oral daily Benicar 1 Tablet (of 40 mg) Oral daily Chlorthalidone 1 Tablet (of 25 mg) Oral daily Furosemide 1 Tabminder (of 40 mg) Tablet Oral daily PRN hydrALAZINE HCl 2 Tablet (of 50 mg) Oral t.i.d. HYDROcodone-Acetaminophen 1 Tablet (of 5-325 mg) Oral PRN Levemir Flexpen Subcutaneous Take as Directed LORazepam 0.5 - 1 Tablet (of 1 mg) Oral t.i.d. Lyrica 1 - 2 Capsule (of 75 mg) Oral daily NovoLIN 70/30 25 Units (of (70-30) 100 Units/mL) Subcutaneous b.i.d. Protonix 1 Capsule (of 40 mg) Tablet, enteric coated Oral daily Simvastatin 1 Tablet (of 40 mg) Oral daily Synthroid 1 Tablet (of 150 mcg) Oral daily Vitamin D 1 Tablet (of 83900 Units) Oral q 7 days PRN Family History: Mr. Blake's mother at age 84: pancreatic cancer. Mr. Blake's father at age 84: stroke. Mr. Blake has 1 brother who is . Father of stroke at age 82. Mother of pancreatic cancer, also at age 82. He had a total of 21 siblings, which included 6 full brothers and 6 full sisters. Two brothers had colon cancer. At least 1 brother and 1 sister had diabetes. A daughter with cerebral palsy at age 33. A grandson has been treated for testicular cancer. Social History: Mr. Blake is . Mr. Blake no longer smokes. He has no history of drinking. He has indicated exposure to the following products: chewing tobacco. He has a history of smoking 1 pack of cigarettes daily, but he had quit smoking in 1982. He does chew tobacco, reported at 5 cans weekly. He had some alcohol use when he was a teenager. He quit by age 18. Review Of Symptoms: Constitutional Denies fevers, chills, night sweats, excessive fatigue or weight loss. Allergic/Immunologic No reactions. Eyes Denies significant visual changes. No diplopia. No amaurosis. ENMT Denies changes in hearing, sore throat, mouth sores, difficulty or changes in swallowing ability, and/or sinus drainage. Hematologic/Lymphatic Denies easy bruising or bleeding. The patient denies any tender or palpable lymph nodes. Bruising around port placement site slowly resolving. Respiratory Denies dyspnea on exertion, chest pain, cough or hemoptysis. Denies orthopnea. Cardiovascular Denies anginal chest pain, palpitations or orthopnea. Gastrointestinal Denies nausea, vomiting, diarrhea, GI bleeding, or constipation. Denies change in bowel habits and/or stool color, no heartburn or early satiety. Genitourinary (M) Denies hematuria, dysuria, increased frequency, urgency, hesitancy or incontinence. Musculoskeletal Denies joint swelling or redness. No decreased range of motion. He states he has had hip, leg, lower back and sternal pain for about 3-4 days. He did have Neulasta OnPro placed on 11/18/2019. Integumentary Denies chronic rashes, inflammation, ulcerations or skin changes. Neurologic Denies headache, blurred vision, and no areas of focal weakness or numbness. Normal gait. No sensory problems. Psychiatric Denies insomnia, depression, lizett or mood swings. Vital Signs: Performed on Nov 25, 2019 14:41 Height - 68.00 in Weight - 279.8 lbs (HIGH) BSA - 2.36 sq.m BMI - 42.54 (HIGH) Temperature - 97.8 F (LOW) Pulse - 65 /min Respiration - 24 /min BP - 193/63 mm(hg) (HIGH) O2 Sat - 96 % Pain - 10,1 - No physically strenuous activity, but ambulatory and able to carry out light or sedentary work (e.g. office work, light house work). (ECOG) Physical Examination: Constitutional Alert, oriented, no acute distress. Skin pink, warm and dry. Head Normocephalic; atraumatic. Eyes Conjunctivae and sclerae are clear and without icterus. Pupils are reactive and equal. Neck Supple without masses or thyromegaly. No jugular venous distension. Hematologic/Lymphatic No petechiae or purpura. No tender or palpable lymph nodes in the cervical or supraclavicular areas. Respiratory Lungs are clear to auscultation without rhonchi or wheezing. Cardiovascular Regular rate and rhythm of heart without murmurs,clicks, gallops or rubs. Chest Chest is symmetric without chest wall deformities. Right sided upper chest wall port a cath insertion site has improved in regards to the bruising since last week. Otherwise it is unremarkable. Breasts Abdomen Non-tender, non-distended, no masses or No guarding or rebound tenderness. No pulsatile masses. Back/Spine Non-tender to palpation. Extremities No visible deformities, no cyanosis, clubbing or edema. Musculoskeletal No tenderness or swelling, normal range of motion without obvious weakness. Integumentary No rashes or lesions. Neurologic No sensory or motor deficits, normal cerebellar function, assisted gait with cane. Psychiatric Alert and oriented times three. Coherent speech. Verbalizes understanding of our discussions today. Laboratory:Test performed on Nov 18, 2019 12:01 TSH 4.50 uIU/mL Test performed on Nov 18, 2019 09:09 WBC 5.8 10^3/uL RBC 3.45 10^6/uL HGB 10.7 g/dL HCT 33.8 % MCV 98 fl MCH 31.0 pg MCHC 31.7 g/dL RDW 12.6 % Platelet Count 189 10^3/uL MPV 10.9 fl Neutrophils 3.2 10^3/uL Lymphocytes 1.6 10^3/uL Monocytes 0.7 10^3/uL Eosinophils 0.2 10^3/uL Basophils 0.1 10^3/uL Neutrophil % 55.2 % Lymphocyte % 27.9 % Monocyte % 11.4 % Eosinophil % 4.0 % Basophils % 1.2 % Test performed on Nov 17, 2019 12:01 Manual Lymphocytes 27.9 % Manual Monocytes 11.4 % Manual Eosinophils 4.0 % Manual Basophils 1.2 % Impression: 1. Patient with follicular lymphoma, grade 3B, involving left cervical lymph nodes. Studies are curling in process to rule out double hit lymphoma. 2. He has chronic illness and generally poor performance status. His other medical illnesses include: 3. Hypertension. 4. Hyperlipidemia. 5. Type 2 diabetes. 6. Chronic kidney disease. 7. Coronary artery disease with previous coronary artery bypass. 8. Atrial fibrillation. 9. Carotid stenosis with previous right carotid endarterectomy. 10. Hypothyroidism. 11. Degenerative arthritis. The pathology findings were reviewed with the patient and his per Dr Bob. He discussed the clinical implications with Mr and Mrs Blake.. He has a grade 3B follicular lymphoma, which is at least intermediate grade. Studies did rule out double hit lymphoma. He has not completed staging, but there appear to be multiple involved nodes in the left side of the neck by CT scan. If his disease is localized to that area, he potentially could be treated with a short course of chemotherapy and involved field radiation. For more extensive disease, a longer course of chemotherapy would be required, and that will be problematic with his significant underlying medical illnesses and poor performance status. The recommended treatment plan at this time is 4 cycles of R-CHOP. He began his first cycle on 11/18/2019. He was given Neulasta support. He has tolerated it relatively well overall. Plan: 1. Proceed with cycle 1 R-CHOP-this is day 8. 2. Premedicate with standard high risk antiemetics--Compazine and Ativan prn use at home. 3. Labs from 11/24/2019 were reviewed in detail and discussed with and Mrs. Blake and a copy was given to them. WBC 4.2, hemoglobin 10.1, platelets 101,000 ANC is 2200. creatinine was improved from 2.0 to 1.7.. His random glucose was 220. 4. We will plan for follow-up in 2 weeks with CBC, CMP and LDH. He will have weekly interim counts which could be done through home lab if he desires. 5. He was advised he can take hydrocodone/APAP 5/325 mg prn for the bone pain and we discussed using Claritin 10 mg daily for the bone pain as well. I suspect the bone pain he is having is related to the Neulasta and we discussed this as well. Mr Blake was reminded that the Neulasta shot is 2 weeks in duration. 6. Mr Blake was encouraged to call us in the interim if questions or problems arise or if he is not getting relief of the bone pain. 7. We did go ahead and give him a refill on his hydrocodone as his bottle only has 3 to 4 tablets in it and it was for quantity of 120 from May 2019. Signed By: Tamera Granados-, [facility] Eliud Bob MD <<Signature on File>>
== END 2019-11-29 23:59 | disposition home or self-care (01) ==
LOC: ONCMED 05:36
PROVIDERS: Family Provider Nurse Practitioner Family; PCP Nurse Practitioner Family; Visit Provider Nurse Practitioner
DX: Z51.12 Encounter for antineoplastic immunotherapy (principal); C82.21 Follicular lymphoma grade III, unspecified, lymph nodes of head, face, and neck; D70.1 Agranulocytosis secondary to cancer chemotherapy; T45.1X5A Adverse effect of antineoplastic and immunosuppressive drugs, initial encounter; I12.9 Hypertensive chronic kidney disease with stage 1 through stage 4 chronic kidney disease, or unspecified chronic kidney disease; E78.5 Hyperlipidemia, unspecified; E11.22 Type 2 diabetes mellitus with diabetic chronic kidney disease; N18.9 Chronic kidney disease, unspecified; I25.10 Atherosclerotic heart disease of native coronary artery without angina pectoris; F17.220 Nicotine dependence, chewing tobacco, uncomplicated; I48.91 Unspecified atrial fibrillation; M19.90 Unspecified osteoarthritis, unspecified site; E03.9 Hypothyroidism, unspecified; Z79.4 Long term (current) use of insulin; Z79.891 Long term (current) use of opiate analgesic; Z95.1 Presence of aortocoronary bypass graft; Z96.652 Presence of left artificial knee joint
CPT/HCPCS: 36415; 80053; 84443; 85025; 96367; 96372; 96411; 96413; 96415; 96417; 99214; J1100; J1200; J1453; J2469; J2505; J3490; J7030; J7040; J9000; J9070; J9312; J9370

== ENCOUNTER 2019-12-09 05:38 | Outpatient (RCR) | payer MEDICARE, SELFPAY ==
[2019-12-01 09:42] LABS: Basophils # 0.1 10^3/uL (0.0-0.1); Basophils % 0.9 %; Eosinophils # 0.1 10^3/uL (0.0-0.8); Eosinophils % 0.9 %; Hematocrit 32.2 % (42.0-52.0); Hemoglobin 10.2 g/dL (11.7-16.6); Lymphocytes # 1.7 10^3/uL (0.8-4.8); Lymphocytes % 16.8 %; Mean Corpuscular HGB Conc 31.7 g/dL (30.0-36.0); Mean Corpuscular Hemoglobin 30.9 pg (28.0-34.0); Mean Corpuscular Volume 97.6 fL (80-94); Mean Platelet Volume 11.5 fL (7.4-10.4); Monocytes # 1.4 10^3/uL (0.2-0.9); Neutrophils # 4.4 10^3/uL (1.8-7.7); Neutrophils % 43.4 %; Nucleated Red Blood Cells % 0.2 %; Platelet Count 153 10^3/cmm (130-400); White Blood Count 10.2 10^3/uL (4.0-10.0)
[2019-12-01 10:02] LABS: Alanine Aminotransferase 23 U/L (0-41); Albumin Level 3.8 g/dL (3.5-5.2); Alkaline Phosphatase 91 IU/L (40-130); Anion Gap 16.8 (5-19); Aspartate Amino Transferase 26 U/L (0-40); Blood Urea Nitrogen 27 mg/dL (8-23); Calcium 8.9 mg/dL (8.5-10.5); Carbon Dioxide 27 mmol/L (22-29); Chloride 99 mmol/L (98-107); Globulin 3.2 g/dL (1.3-4.6); Glucose 65 mg/dL (65-115); Lactate Dehydrogenase 315 U/L (135-225); Potassium 4.8 mmol/L (3.5-5.1); Sodium 138 mmol/L (136-145); Total Bilirubin 0.2 mg/dL (0.15-1.2)
[2019-12-01 10:15] LABS: Slide Review Slide Review Perform
[2019-12-08 08:55] LABS: Basophils # 0.1 10^3/uL (0.0-0.1); Basophils % 1.5 %; Eosinophils # 0.1 10^3/uL (0.0-0.8); Eosinophils % 1.1 %; Hematocrit 32.3 % (42.0-52.0); Hemoglobin 10.1 g/dL (11.7-16.6); Lymphocytes # 1.8 10^3/uL (0.8-4.8); Lymphocytes % 20.1 %; Mean Corpuscular HGB Conc 31.3 g/dL (30.0-36.0); Mean Corpuscular Hemoglobin 30.9 pg (28.0-34.0); Mean Corpuscular Volume 98.8 fL (80-94); Mean Platelet Volume 10.8 fL (7.4-10.4); Monocytes # 1.3 10^3/uL (0.2-0.9); Monocytes % 13.8 %; Neutrophils # 4.9 10^3/uL (1.8-7.7); Neutrophils % 53.5 %; Nucleated Red Blood Cells % 0 %; Platelet Count 327 10^3/cmm (130-400); Red Blood Count 3.27 10^6/uL (4.1-5.3); Red Cell Distribution Width 13.2 % (12.1-15.1); White Blood Count 9.1 10^3/uL (4.0-10.0)
[2019-12-08 09:17] LABS: Alanine Aminotransferase 22 U/L (0-41); Albumin Level 3.6 g/dL (3.5-5.2); Alkaline Phosphatase 65 IU/L (40-130); Anion Gap 16.3 (5-19); Aspartate Amino Transferase 25 U/L (0-40); Blood Urea Nitrogen 28 mg/dL (8-23); Calcium 9.4 mg/dL (8.5-10.5); Carbon Dioxide 25 mmol/L (22-29); Chloride 99 mmol/L (98-107); Globulin 3.2 g/dL (1.3-4.6); Glucose 216 mg/dL (65-115); Lactate Dehydrogenase 277 U/L (135-225); Osmolality Calculated 284 mOsm/kg (285-295); Potassium 5.3 mmol/L (3.5-5.1); Sodium 135 mmol/L (136-145); Total Bilirubin 0.2 mg/dL (0.15-1.2); Total Protein 6.8 g/dL (6.6-8.7)
[2019-12-08 09:52] LABS: Slide Review Slide Review Perform
[2019-12-08 09:54] LABS: Anisocytosis 1+; Band Neutrophils Absolute 1.5 10^3/cmm (0.0-1.2); Basophils Absolute 0.1 10^3/cmm (0.0-0.2); Lymphocytes 10 %; Monocytes Absolute 1.8 10^3/cmm (0.1-0.6); Platelet Estimate Normal (Normal); Segmented Neutrophils 44 %; Total Cells Counted 100 (0-100)
[2019-12-09 09:30] LABS: Magnesium 2.2 mg/dL (1.7-2.3); Uric Acid 6.9 mg/dL (3.4-7.0)
[2019-12-09] MEDS: ceFAZolin 1,000 MG in sodium chloride 0.9% (plus) 50 ML 150 MG IV (10:13)
[2019-12-09] MEDS: sodium chloride 0.9% 500 ML 999 ML IV (10:13)
[2019-12-09] MEDS: acetaminophen 325 mg Tablet 650 MG PO (10:41)
[2019-12-09] MEDS: pegfilgrastim 6 mg/0.6 mL Kit (onpro) SUBCUT (16:40)
--- NOTE | 2019-12-13 08:22 | ONC FU_ITS ---
Dr. Bob Patient Follow-Up Note Patient: Julius Blake Unit #: [id number]: [id number] Dicatated By: Eliud Bob M.D.Date of Visit:Dec 09, 2019 Onc Med Follow-up/Prog Note Chief Complaint: Lymphoma. 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 He had presented with a knot on the left side of his neck, first noticed sometime in August. He was referred to Dr. Sanchez. A noncontrast neck CT on 09/09/2019 showed level 1A submental lymph nodes measuring up to 13 mm, level 1B submandibular lymph nodes, including a node on the left side measuring 17 mm. A level 2 jugular lymph node measured up to 2 cm, and smaller level 2 lymph nodes on the left side measured up to 12 mm. Level 3 nodes on the left side measured up to 13 mm. There were no enlarged lymph nodes noted in the superior mediastinum. On 09/15/2019 he underwent excisional biopsy of a left cervical lymph node. Pathology was nondiagnostic. He then underwent repeat left cervical lymph node biopsy on 10/06/2019. Pathology showed follicular lymphoma, grade 3B. Also reported was a focal proliferation of Langerhans' cells, and a component of Langerhans' cell neoplasm was not excluded. Furthermore, there was noted to be a discrepancy between the flow cytometry studies and the histologic findings. As such, a prognostic profile by FISH was requested to rule out a double hit lymphoma, and that came back negative for BL-6 and MYC rearrangement. His staging PET/CT had to be delayed because of insurance issues. It was eventually completed on 11/11/2019. It showed an area of hypermetabolic activity involving the nasopharyngeal soft tissue with a maximum SUV 6.09 on the right and SUV 4.34 on the left. There was otherwise just a few shotty lymph nodes noted within the left lower cervical chain, maximum SUV 2.43, and a few shotty left cervical chain lymph nodes at the level of the thyroid cartilage, maximum SUV 3.66. There was no suspicious uptake noted within the chest, abdomen, or pelvis. With those findings, he was recommended to undergo treatment with short course R-CHOP chemotherapy followed by involved field radiation. His baseline echocardiogram showed normal left ventricular systolic function with ejection fraction 74%. He began cycle 1 of R-CHOP on 11/18/2019. He was given first cycle prophylaxis with Neulasta. His other medical illnesses include hypertension, hyperlipidemia, type 2 diabetes, chronic kidney disease, coronary artery disease, atrial fibrillation, and carotid stenosis. He has had previous coronary artery bypass surgery and right carotid endarterectomy. He also has hypothyroidism and degenerative arthritis. He has a history of smoking 1 pack of cigarettes daily, but he quit smoking back in 1982. His since then chewed tobacco. INTERIM HISTORY: He is seen for a scheduled visit. He says his energy is not too good, but it comes and goes. He has limited activity. ECOG score is 2. Appetite also has been variable, but he apparently has been drinking a lot of fluid. His weight is down 6 pounds. He does not have fever or night sweats. He has had no mouth sores. He does report having some hoarseness. He has shortness of breath with activity. He has some cough in the mornings, productive of white sputum. He has not had chest pain. He has had just occasional nausea. He had constipation for 5 days after his treatment, but that resolved with laxatives. He has had frequent urination. He had musculoskeletal pain for about a week after the Neulasta injection. He has no other joint or bone pain. He has felt a little shaky. He has had no numbness/paresthesia or other focal neurologic symptoms. Medications: Amiodarone HCl 1 Tablet (of 100 mg) Oral b.i.d., Aspirin 1 Tablet (of 325 mg) Oral daily, Benicar 1 Tablet (of 40 mg) Oral daily, Chlorthalidone 1 Tablet (of 25 mg) Oral daily, Furosemide 1 Tabminder (of 40 mg) Tablet Oral daily PRN, hydrALAZINE HCl 2 Tablet (of 50 mg) Oral t.i.d., HYDROcodone-Acetaminophen 1 Tablet (of 5-325 mg) Oral PRN, Levemir Flexpen Subcutaneous Take as Directed, LORazepam 0.5 - 1 Tablet (of 1 mg) Oral t.i.d., Lyrica 1 - 2 Capsule (of 75 mg) Oral daily, NovoLIN 70/30 25 Units (of (70-30) 100 Units/mL) Subcutaneous b.i.d., Protonix 1 Capsule (of 40 mg) Tablet, enteric coated Oral daily, Simvastatin 1 Tablet (of 40 mg) Oral daily, Synthroid 1 Tablet (of 150 mcg) Oral daily, Vitamin D 1 Tablet (of 34400 Units) Oral q 7 days PRN Allergies: No Known Allergies. Review of Systems: Constitutional - His energy comes and goes. He does some light walking at home. His appetite varies from day to day. His weight is down 13 pounds from previous visit. No fever, chills, hot flashes, or night sweats. ECOG score is 2, ENMT - He has some sinus congestion/drainage. No mouth sores. No sore throat or difficulty swallowing, Hematologic/Lymphatic - No abnormal bruising or bleeding, Respiratory - He has some shortness of breath with activity. He has a productive cough in the mornings with white sputum. No pleuritic pain or hemoptysis, Cardiovascular - No angina pain. No palpitations, Gastrointestinal - He has occasional nausea. No vomiting. No heartburn or acid reflux. He had some constipation, but it was adequately managed with OTC medications. No diarrhea. No blood in the stool or black stools, Genitourinary (M) - No dysuria or hematuria. He has urinary frequency. No urgency or incontinence, Musculoskeletal - He had some pain after receiving the Neulasta, but was controlled his Hydrocodone. No other joint or bone pain, Integumentary - No skin complications, Neurologic - No headache or dizziness. No numbness/paresthesias or other focal neurologic symptoms, Psychiatric - No anxiety or depression. He occasionally has difficulty sleeping but states that he takes the Ativan which helps. Vital Signs: Performed on Dec 09, 2019 08:27 Height - 68.00 in Weight - 266.4 lbs (LOW) BSA - 2.31 sq.m BMI - 40.51 (HIGH) Temperature - 97.0 F (LOW) Pulse - 63 /min Respiration - 24 /min BP - 174/59 mm(hg) (HIGH) O2 Sat - 95 % (LOW) Pain - 0 Physical Examination: Constitutional - He still appears somewhat weak generally, Eyes - Sclerae nonicteric. Conjunctivae clear, ENMT - No lesions noted in the oral cavity, Hematologic/Lymphatic - No cervical, clavicular, or axillary adenopathy, Respiratory - Lungs sound clear, Cardiovascular - Heart rhythm is regular. There is a III/ systolic murmur. There is no gallop or rub noted, Abdomen - Distended. Liver and spleen do not appear overtly enlarged. There is no abdominal mass or ascites noted and there is no inguinal adenopathy, Extremities - No edema, Integumentary - There is significant erythema at the Port-A-Cath site in the upper right chest wall, Neurologic - No focal neurologic deficits noted. Lab/Imaging: CBC shows hemoglobin 10.1 g, white blood cell count 9100, and platelet count 327,000. Comprehensive metabolic profile shows elevated BUN and creatinine at 28 and 2.2 mg/dL. Potassium is slightly elevated at 5.3 mmol/L. LDH is slightly elevated at 277/225 U/L. Impression: 1. Patient with follicular lymphoma, grade 3B. The FISH prognostic profile was negative for double hit lymphoma. By clinical evaluation he appears to have stage II disease with involvement limited to the nasopharyngeal soft tissues and left cervical lymph nodes. 2. He has chronic illness and generally poor performance status. His other medical illnesses include: 3. Hypertension. 4. Hyperlipidemia. 5. Type 2 diabetes. 6. Chronic kidney disease. 7. Coronary artery disease with previous coronary artery bypass. 8. Atrial fibrillation. 9. Carotid stenosis with previous right carotid endarterectomy. 10. Hypothyroidism. 11. Degenerative arthritis. In the setting of grade 3B follicular lymphoma and localized involvement, he was recommended undergo short course R-CHOP chemotherapy followed by involved field radiation. His baseline echocardiogram showed normal left ventricular function with ejection fraction at 74%. He began cycle 1 of R-CHOP on 11/18/2019. He was given first cycle prophylaxis with Neulasta. Overall, he tolerated the treatment well. He has had some fatigue, and he continues to have limited activity tolerance. GI side effects were limited to mild nausea and constipation. He he had musculoskeletal pain following the Neulasta injection, but it was tolerable. His blood counts remained adequate. The main concern is that there has been a decline in his renal function. Plan: He will continue with cycle 2 of R-CHOP chemotherapy. The dosages will remain the same. He will start on a bowel regimen prophylactically, and he will take loratadine prophylactically. He is going to be given antibiotic coverage with cephalexin for the port site erythema. He will stop his diuretic. His blood counts and chemistries will be monitored weekly. He will be scheduled to return in 3 weeks. He will have a restaging PET/CT prior to that visit. Signed By: Eliud Bob M.D. <<Signature on File>>
== END 2019-12-12 09:00 | disposition home or self-care (01) ==
LOC: ONCMED 05:38
PROVIDERS: Nurse Practitioner; Family Provider Nurse Practitioner Family; PCP Nurse Practitioner Family; Visit Provider Internal Medicine Medical Oncology
DX: Z51.12 Encounter for antineoplastic immunotherapy (principal); Z51.11 Encounter for antineoplastic chemotherapy; C82.21 Follicular lymphoma grade III, unspecified, lymph nodes of head, face, and neck; E11.22 Type 2 diabetes mellitus with diabetic chronic kidney disease; I12.9 Hypertensive chronic kidney disease with stage 1 through stage 4 chronic kidney disease, or unspecified chronic kidney disease; N18.9 Chronic kidney disease, unspecified; E78.5 Hyperlipidemia, unspecified; I25.10 Atherosclerotic heart disease of native coronary artery without angina pectoris; I48.91 Unspecified atrial fibrillation; Z95.1 Presence of aortocoronary bypass graft; E03.9 Hypothyroidism, unspecified; M19.90 Unspecified osteoarthritis, unspecified site; F17.220 Nicotine dependence, chewing tobacco, uncomplicated; Z79.891 Long term (current) use of opiate analgesic; Z79.4 Long term (current) use of insulin; Z79.899 Other long term (current) drug therapy
CPT/HCPCS: 80053; 83615; 83735; 84550; 85007; 85025; 87070; 87077; 87186; 96367; 96372; 96411; 96413; 96415; 96417; 99214; J0690; J1100; J1200; J1453; J2469; J2505; J3490; J7040; J9000; J9070; J9312; J9370

== ENCOUNTER 2019-12-12 09:04 | Outpatient (CLI) | payer MEDICARE, SELFPAY ==
--- NOTE | 2019-12-12 09:30 | USCV_ITS ---
Julius Blake Age: 74 Gender: M : 1945 Exam Date: 12/12/2019 09:35 Ordering Phys: Migdalia Gonzales MD ([email or web address] ([place] Technologist: JOSÉ MIGUEL LAO Exam Location: [facility] [place] Indication: CAROTID STENOSIS Risk Factors: Previous Vascular Surgery: R CEA Right Brachial BP: / Left Brachial BP: / Right Left Velocity (cm/s) Spectral Plaque Velocity (cm/s) Spectral Plaque Syst/Diast Broadening Syst/Diast Broadening 108.10/11.00 Prox CCA 150.70/ 10.90 108.10/12.10 Mid CCA 124.30/ 14.00 98.10/ 12.10 Distal CCA 94.80 / 8.80 55.90/ 12.40 Prox ICA 243.80/ 45.60 93.10/ 19.70 Mid ICA 175.20/ 36.00 106.00/21.80 Distal ICA 167.30/ 36.00 140.70 ECA 341.80 0.98 ICA/CCA 1.96 Antegrade Vertebral Antegrade 73.80/ 11.90 cm/s 108.1/ 30.60 cm/s 0 Tri Subclavian Tri 167.8 174.7 0 0 FINDINGS Moderate to heavy heterogeneous plaques of the left bifurcation and proximal internal carotid artery Minimal plaques of the right bifurcation and internal carotid artery. Intimal thickening in the common carotid arteries bilaterally. Antegrade flow in the vertebral arteries bilaterally. CONCLUSIONS Moderate to heavy heterogeneous plaques of the left bifurcation and proximal internal carotid arterywith velocity elevation consistent with 50-79% stenosis. Minimal plaques of the right bifurcation and internal carotid artery. Compared to study from 05/15/2018, there seems to be some worsening of stenosis on the left side, based on the flow velocity measurements Dr Migdalia Gonzales MD [facility] (Electronically Signed) Final Date: 15 December 2019 09:06 S
== END 2019-12-12 09:05 | disposition home or self-care (01) ==
LOC: US 09:06
PROVIDERS: Family Provider Nurse Practitioner Family; PCP Nurse Practitioner Family; Visit Provider Internal Medicine Cardiovascular Disease
DX: I65.23 Occlusion and stenosis of bilateral carotid arteries (principal)
CPT/HCPCS: 93880

== ENCOUNTER 2019-12-22 09:03 | Outpatient (RCR) | payer MEDICARE, SELFPAY ==
[2019-12-15 10:06] LABS: Basophils # 0.1 10^3/uL (0.0-0.1); Basophils % 0.5 %; Eosinophils % 0.1 %; Hematocrit 28.8 % (42.0-52.0); Hemoglobin 9.4 g/dL (11.7-16.6); Lymphocytes # 0.6 10^3/uL (0.8-4.8); Lymphocytes % 4.5 %; Mean Corpuscular HGB Conc 32.6 g/dL (30.0-36.0); Mean Corpuscular Hemoglobin 32.4 pg (28.0-34.0); Mean Corpuscular Volume 99.3 fL (80-94); Mean Platelet Volume 12.1 fL (7.4-10.4); Monocytes # 0.1 10^3/uL (0.2-0.9); Monocytes % 0.7 %; Neutrophils # 9.8 10^3/uL (1.8-7.7); Neutrophils % 68.8 %; Nucleated Red Blood Cells % 0 %; Platelet Count 142 10^3/cmm (130-400); Red Cell Distribution Width 13.5 % (12.1-15.1); White Blood Count 14.2 10^3/uL (4.0-10.0)
[2019-12-15 10:15] LABS: Anion Gap 14.4 (5-19); Blood Urea Nitrogen 49 mg/dL (8-23); Calcium 8.8 mg/dL (8.5-10.5); Carbon Dioxide 27 mmol/L (22-29); Chloride 102 mmol/L (98-107); Glucose 274 mg/dL (65-115); Magnesium 2.1 mg/dL (1.7-2.3); Osmolality Calculated 294 mOsm/kg (285-295); Potassium 5.4 mmol/L (3.5-5.1); Sodium 138 mmol/L (136-145); Uric Acid 6.7 mg/dL (3.4-7.0)
[2019-12-15 10:36] LABS: Slide Review Slide Review Perform
[2019-12-22 06:32] LABS: Basophils # 0.1 10^3/uL (0.0-0.1); Basophils % 1.4 %; Eosinophils # 0.2 10^3/uL (0.0-0.8); Eosinophils % 1.6 %; Hemoglobin 8.9 g/dL (11.7-16.6); Lymphocytes % 10.6 %; Mean Corpuscular HGB Conc 31.8 g/dL (30.0-36.0); Mean Corpuscular Hemoglobin 31.6 pg (28.0-34.0); Mean Corpuscular Volume 99.3 fL (80-94); Mean Platelet Volume 11.3 fL (7.4-10.4); Monocytes # 1.3 10^3/uL (0.2-0.9); Monocytes % 13.7 %; Neutrophils # 3.9 10^3/uL (1.8-7.7); Neutrophils % 43.2 %; Nucleated Red Blood Cells # 0.1 /100WBC; Platelet Count 99 10^3/cmm (130-400); Red Blood Count 2.82 10^6/uL (4.1-5.3); Red Cell Distribution Width 13.6 % (12.1-15.1); White Blood Count 9.1 10^3/uL (4.0-10.0)
[2019-12-22 06:55] LABS: Anion Gap 17.2 (5-19); Blood Urea Nitrogen 26 mg/dL (8-23); Calcium 9.1 mg/dL (8.5-10.5); Carbon Dioxide 27 mmol/L (22-29); Chloride 99 mmol/L (98-107); Glucose 186 mg/dL (65-115); Osmolality Calculated 288 mOsm/kg (285-295); Potassium 5.2 mmol/L (3.5-5.1); Sodium 138 mmol/L (136-145)
[2019-12-22 07:18] LABS: Slide Review Slide Review Perform
[2019-12-22 07:22] LABS: Absolute Eosinophils 0.2 10^3/cmm (0.0-0.7); Absolute Segmented Neutrophil 3.5 10/cmm (1.6-7.1); Band Neutrophils Absolute 1.6 10^3/cmm (0.0-1.2); Eosinophils 3 %; Lymphocytes 16 %; Monocytes Absolute 1.3 10^3/cmm (0.1-0.6); Segmented Neutrophils 39 %; Total Cells Counted 100 (0-100)
[2019-12-22 07:23] LABS: Platelet Estimate Decreased (Normal)
== END 2019-12-23 05:00 | disposition home or self-care (01) ==
LOC: ONCMED 09:03
PROVIDERS: Family Provider Nurse Practitioner Family; PCP Nurse Practitioner Family; Visit Provider Internal Medicine Medical Oncology
DX: C82.21 Follicular lymphoma grade III, unspecified, lymph nodes of head, face, and neck (principal); N18.9 Chronic kidney disease, unspecified; T82.898A Other specified complication of vascular prosthetic devices, implants and grafts, initial encounter; Y82.8 Other medical devices associated with adverse incidents
CPT/HCPCS: 36415; 80048; 83735; 84550; 85007; 85025; 87070; 87077; 87186; 87205

== ENCOUNTER 2019-12-23 05:54 | Day surgery (SDC) | payer MEDICARE, SELFPAY ==
[2019-12-23 06:26] VITALS: BP 153/52; PULSE 71; RESP 18; TEMP 36.8; O2SAT 96
[2019-12-23 06:38] VITALS: BMI 39.8
[2019-12-23 06:38] LABS: Glucose Point of Care 168 mg/dL (70-110)
--- NOTE | 2019-12-23 06:38 | W.PM.OPSUD ---
Surgery/Procedure H&P Update DATE OF PROCEDURE: December 23, 2019 DATE H&P PERFORMED: 12/22/19 H&P UPDATE INFORMATION: I have reviewed H&P completed within last 30 days, I have examined patient prior to procedure and No changes to prior documentation PREOP DIAGNOSIS: Infection related to Port-A-Cath PRIMARY INDICATION FOR PROCEDURE: The same PLANNED PROCEDURE: Operation Date: 12/23/19 07:50 Proposed Procedures p Portacath Removal 21675/C85.90(Not Applicable) - Alvin Abdi MD
--- NOTE | 2019-12-23 06:46 | ECG_ITS ---
Measurements Intervals [place] Rate: 66 P: VA: 0 QRS: 34 QRSD: 86 T: 58 QT: 414 QTc: 435 SINUS RHYTHM ATYPICAL ECG WARNING: DATA QUALITY MAY AFFECT INTERPRETATION Compared to ECG 09/15/2019 06:37:32 Supraventricular rhythm now present Sinus rhythm no longer present First degree AV block no longer present Electronically Signed On 12-23-2019 20:14:56 CDT by Mino Siegel M.D. [email or web address]
[2019-12-23] MEDS: sodium chloride 0.9% 1,000 ML 30 ML IV (07:20)
--- NOTE | 2019-12-23 07:44 | ANES.PREANE2 ---
Pre-Anesthetic Assessment Pre-Anesthetic Assessment: Height/Weight: Height 1.73 m Weight 118.841 kg Temp Pulse Resp BP Pulse Ox 98.2 F 71 18 153/52 96 12/23/19 06:26 12/23/19 06:26 12/23/19 06:26 12/23/19 06:26 12/23/19 06:26 Preop Diagnosis: Infection related to Port-A-Cath Proposed Procedure: Operation Date: 12/23/19 07:50 Proposed Procedures p Portacath Removal 36143/C85.90(Not Applicable) - Alvin Abdi MD Was Beta Rodrigue taken within 24 hours: Yes Last intake: Intake Last Liquid Date 12/22/19 Last Liquid Time 18:00 Last Solid Date 12/22/19 Last Solid Time 18:00 Social: Packs per day: 1/2 Pack years: 20 Comment: 1982 Exam: Pre-Anes Outpt Exam: alert, oriented x 3, clear to auscultation bilaterally and regular rate & rhythm Additional Exam Findings (including area of procedure): systolic murmur 3/4 Airway: Submandibular: WNL Cervical ROM: Other MP: 3 Pulmonary: Comments: pneumonia CV/HEM: CV/HEM: Afib, Arrythmia, CAD and PVD Comments: CABG x2 stress test GI: GI: GERD Metabolic: Metabolic: DM Comments: rx'd x 25 normally 59-400 Musc/skel: Musc/skel: Lower Back Pain Comments: nonradiating Neuropsych: Neuropsych: RAMOS Comments: president [facility] Anesthetic Plan: ASA status: 4 Meds/Allergies Current Medications: Current Medications Generic Name Dose Route Start Last Admin Trade Name Freq PRN Reason Stop Dose Admin Sodium Chloride 1,000 mls @ 30 ml s/hr 12/23/19 06:45 12/23/19 07:20 Sodium Chloride 0.9% IV 12/24/19 06:44 30 mls/hr .Q24H JESSICA Administration PFSH Anesthesia PFSH: Social History Smoking and tobacco status: former smoker Alcohol intake: never History of recent travel: No Data Anesthesia Other Labs: Laboratory Results - last 48 hr 12/23/19 06:35 POC Glucose 168 Cardiac Studies: No Data to Display
[2019-12-23] MEDS: lidocaine 2% INJ 20 mL INJECTION (09:30)
--- NOTE | 2019-12-23 09:47 | P.OP_ITS ---
Operative Report Date of procedure: December 23, 2019 Pre-op Diagnosis: Infection related to Port-A-Cath Post-op diagnosis: same Procedure Done: Explantation of right upper chest Port-A-Cath Specimens removed/disposition: Tip of Port-A-Cath sent for cultures and sensitivities Surgeon: Alvin Abdi Glove Cuffer: Surgical cassi Fernandes Circulating nurse Aleyda Anesthesia: MAC (seaweed harvester Chi) Estimated blood loss (mL): 5 Condition: stable Disposition: same day Brief History: This is a pleasant 74 years old gentleman had history of lymphoma that required Port-A-Cath placement which she had port placed by me uneventfully last month, patient overall did well which she had the port no over a month yet eventually over the past few days he started to encounter cellulitis and dr martinez from the incision site that required oral antibiotics, it did not improve his clinical picture and he was referred to me for potential explantation. After thorough history physical exam and reviewing the chart I did vp & general counsel the patient for explantation of the port and likely the patient would benefit from a PICC line as in the circumstances it would not be optimal to place another port. Informed consent per chart Procedure: After identifying the patient in the holding area, informed consent per chart ,patient was then taken to the operative suite, was placed in supine position, IV propofol was infused by the anesthesia provider and both arms were tucked, prep and drape of the right upper chest region was done under the usual sterile technique. Time-out was done verifying the patient's name/date of /planned procedure and destination after the procedure, all were in agreement. I started by injection of lidocaine 2% at the site of the planned incision started by an transverse incision including the previous scar of the Port-A-Cath, the skin overlying did look necrotic with surrounding cellulitis, there was no pus the port was then explanted easily there was only 1 of the sutures are holding in place Prolene 3/0 that was excised, the surrounding subcutaneous tissues looked unhealthy, at this point the catheter was removed at the same time direct pressure was applied at the site of the right subclavian stick to prevent bleeding. The catheter tip was sent for microbiology for cultures and sensitivities Thorough irrigation of the Port-A-Cath cavity was done followed by hemostasis, pressure was sustained for at least 5 minutes to prevent bleeding from the stick site, sharp debridement was done to the bed of the wound Loose Closure using 3/0 Nylon at both ends of the wound and left a gap in between open for packing was achieved using half inch Nu Gauze wet-to-dry,. Dry dressing was then applied on both wound sites Patient tolerated the procedure well, count of instruments,needles and sponges were completed at the end of the procedure.And then patient was taken to the recovery area in stable condition. I Was present for the whole entire procedure
[2019-12-23 09:56] VITALS: BP 160/61; PULSE 64; RESP 16; TEMP 36.8; O2SAT 98
[2019-12-23 10:20] VITALS: BP 166/64; PULSE 70; RESP 18; TEMP 36.8; O2SAT 96
== END 2019-12-23 11:45 | disposition home or self-care (01) ==
PROVIDERS: Family Provider Nurse Practitioner Family; PCP Nurse Practitioner Family; Visit Provider Surgery
PROC: (CPT 36589; principal; 2019-12-23 08:35)
DX: T80.212A Local infection due to central venous catheter, initial encounter (principal); Z87.891 Personal history of nicotine dependence; I48.91 Unspecified atrial fibrillation; K21.9 Gastro-esophageal reflux disease without esophagitis; Z95.1 Presence of aortocoronary bypass graft; Z79.82 Long term (current) use of aspirin; M19.90 Unspecified osteoarthritis, unspecified site; E11.22 Type 2 diabetes mellitus with diabetic chronic kidney disease; I12.9 Hypertensive chronic kidney disease with stage 1 through stage 4 chronic kidney disease, or unspecified chronic kidney disease; N18.9 Chronic kidney disease, unspecified; I25.10 Atherosclerotic heart disease of native coronary artery without angina pectoris; E78.5 Hyperlipidemia, unspecified
CPT/HCPCS: 36590; 12345; 36416; 82962; 87070; 87075; 87077; 87186; 87205; 93005; J2001; J2704; J7030

== ENCOUNTER → 2019-12-29 09:34 | Day surgery (SDC) | payer MEDICARE, SELFPAY ==
--- NOTE | 2019-12-29 10:20 | XR_ITS ---
WS: [id number] PORTABLE CHEST HISTORY: picc placement COMPARISON: 11/17/2019 Prior CABG. Interval placement of a PICC line to the LEFT upper extremity. Tip is in the distal SVC. No complicat ion. Linear straight foreign body objects over the heart uncertain etiology. Probably external to the patient. Lungs are clear and well expanded. No pleural effusion or pneumothorax. Cardiac size: Normal. Mediastinum/Aorta: Mild atherosclerosis aorta. Degenerative changes at the RIGHT glenohumeral joint. Sclerotic changes involving the RIGHT glenoid. XR/XR chest 1V portable [id number] IMPRESSION: Satisfactory position of the RIGHT PICC line. No pneumothorax.
== END ==
PROVIDERS: Family Provider Nurse Practitioner Family; PCP Nurse Practitioner Family; Visit Provider Surgery
DX: C82.21 Follicular lymphoma grade III, unspecified, lymph nodes of head, face, and neck (principal); Z51.11 Encounter for antineoplastic chemotherapy; Z51.12 Encounter for antineoplastic immunotherapy; I12.9 Hypertensive chronic kidney disease with stage 1 through stage 4 chronic kidney disease, or unspecified chronic kidney disease; E11.22 Type 2 diabetes mellitus with diabetic chronic kidney disease; N18.9 Chronic kidney disease, unspecified; E78.5 Hyperlipidemia, unspecified; I25.10 Atherosclerotic heart disease of native coronary artery without angina pectoris; E03.9 Hypothyroidism, unspecified; M19.90 Unspecified osteoarthritis, unspecified site; F17.220 Nicotine dependence, chewing tobacco, uncomplicated; Z79.4 Long term (current) use of insulin; Z95.1 Presence of aortocoronary bypass graft
CPT/HCPCS: 36569; 71045; 80053; 83615; 85025; J2001; J2704; J3010

== ENCOUNTER 2019-12-30 15:20 | Outpatient (RCR) | payer MEDICARE, SELFPAY ==
[2019-12-29 12:00] LABS: Basophils # 0.1 10^3/uL (0.0-0.1); Eosinophils % 0.4 %; Hematocrit 29.4 % (42.0-52.0); Hemoglobin 9.1 g/dL (11.7-16.6); Lymphocytes # 0.8 10^3/uL (0.8-4.8); Lymphocytes % 11.6 %; Mean Corpuscular Hemoglobin 31.6 pg (28.0-34.0); Mean Corpuscular Volume 102.1 fL (80-94); Mean Platelet Volume 10.7 fL (7.4-10.4); Monocytes # 1.1 10^3/uL (0.2-0.9); Monocytes % 15.4 %; Neutrophils # 4.5 10^3/uL (1.8-7.7); Neutrophils % 63.3 %; Nucleated Red Blood Cells % 0 %; Platelet Count 337 10^3/cmm (130-400); Positive C 1; Red Blood Count 2.88 10^6/uL (4.1-5.3); Red Cell Distribution Width 14.9 % (12.1-15.1); White Blood Count 7.1 10^3/uL (4.0-10.0)
[2019-12-29 12:44] LABS: Alanine Aminotransferase 19 U/L (0-41); Albumin Level 3.8 g/dL (3.5-5.2); Alkaline Phosphatase 53 IU/L (40-130); Anion Gap 17.8 (5-19); Aspartate Amino Transferase 24 U/L (0-40); Blood Urea Nitrogen 28 mg/dL (8-23); Calcium 9.3 mg/dL (8.5-10.5); Carbon Dioxide 25 mmol/L (22-29); Chloride 98 mmol/L (98-107); Globulin 2.4 g/dL (1.3-4.6); Glucose 252 mg/dL (65-115); Lactate Dehydrogenase 292 U/L (135-225); Osmolality Calculated 288 mOsm/kg (285-295); Potassium 4.8 mmol/L (3.5-5.1); Sodium 136 mmol/L (136-145); Total Bilirubin 0.2 mg/dL (0.15-1.2); Total Protein 6.2 g/dL (6.6-8.7)
[2019-12-30] MEDS: acetaminophen 325 mg Tablet 650 MG PO (09:27)
[2019-12-30] MEDS: sodium chloride 0.9% 1,000 ML 999 ML IV (10:36)
[2019-12-30] MEDS: pegfilgrastim 6 mg/0.6 mL Kit (onpro) SUBCUT (15:30)
--- NOTE | 2019-12-30 15:50 | ONC FU_ITS ---
Dr. Bob Patient Follow-Up Note Patient: Julius Blake Unit #: [id number]: [id number] Dicatated By: Eliud Bob M.D.Date of Visit:Dec 30, 2019 Onc Med Follow-up/Prog Note Chief Complaint: Lymphoma. 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 He had presented with a knot on the left side of his neck, first noticed sometime in August. He was referred to Dr. Sanchez. A noncontrast neck CT on 09/09/2019 showed level 1A submental lymph nodes measuring up to 13 mm, level 1B submandibular lymph nodes, including a node on the left side measuring 17 mm. A level 2 jugular lymph node measured up to 2 cm, and smaller level 2 lymph nodes on the left side measured up to 12 mm. Level 3 nodes on the left side measured up to 13 mm. There were no enlarged lymph nodes noted in the superior mediastinum. On 09/15/2019 he underwent excisional biopsy of a left cervical lymph node. Pathology was nondiagnostic. He then underwent repeat left cervical lymph node biopsy on 10/06/2019. Pathology showed follicular lymphoma, grade 3B. Also reported was a focal proliferation of Langerhans' cells, and a component of Langerhans' cell neoplasm was not excluded. Furthermore, there was noted to be a discrepancy between the flow cytometry studies and the histologic findings. As such, a prognostic profile by FISH was requested to rule out a double hit lymphoma, and that came back negative for BL-6 and MYC rearrangement. His staging PET/CT had to be delayed because of insurance issues. It was eventually completed on 11/11/2019. It showed an area of hypermetabolic activity involving the nasopharyngeal soft tissue with a maximum SUV 6.09 on the right and SUV 4.34 on the left. There was otherwise just a few shotty lymph nodes noted within the left lower cervical chain, maximum SUV 2.43, and a few shotty left cervical chain lymph nodes at the level of the thyroid cartilage, maximum SUV 3.66. There was no suspicious uptake noted within the chest, abdomen, or pelvis. With those findings, he was recommended to undergo treatment with short course R-CHOP chemotherapy followed by involved field radiation. His baseline echocardiogram showed normal left ventricular systolic function with ejection fraction 74%. His other medical illnesses include hypertension, hyperlipidemia, type 2 diabetes, chronic kidney disease, coronary artery disease, atrial fibrillation, and carotid stenosis. He has had previous coronary artery bypass surgery and right carotid endarterectomy. He also has hypothyroidism and degenerative arthritis. He has a history of smoking 1 pack of cigarettes daily, but he quit smoking back in 1982. His since then chewed tobacco. INTERIM HISTORY: He began cycle 1 of R-CHOP on 11/18/2019. He was given first cycle prophylaxis with Neulasta. He did have some fatigue with the chemotherapy, and he also had significant musculoskeletal pain associated with the Neulasta. His blood counts, though, remained adequate, and overall he tolerated it pretty well. He continued with cycle 2 on 12/09/2019. At that point he had developed some erythema at his Port-A-Cath site, and it subsequently opened and drained. Culture grew Enterococcus faecalis. He underwent removal of the Port-A-Cath on 12/23/2019. He has been on antibiotic coverage with Augmentin. Yesterday he underwent placement of the PICC line. He is seen for a scheduled visit. He says he feels pretty good, though he does have limited activity. His ECOG score is 2. He says he was sick for 3 or 4 days after his last treatment. He again experienced significant joint pain with the Neulasta. He had difficulty sleeping, I assume from the prednisone, and it also raised havoc with his blood sugars. His appetite has not been good. He does not have fever or night sweats. His mouth was sore for 5 or 6 days. He has some shortness of breath, but he says his breathing is pretty good. He has not had cough and he does not complain of chest pain. He currently is not having nausea. He did have some constipation after treatment, but that resolved. Bladder function has been okay. He does not have headache or dizziness, and he has no numbness/paresthesia. He has some soreness at the Port-A-Cath site, and he still has an open wound. Medications: Amiodarone HCl 1 Tablet (of 100 mg) Oral b.i.d., Aspirin 1 Tablet (of 325 mg) Oral daily, Benicar 1 Tablet (of 40 mg) Oral daily, Chlorthalidone 1 Tablet (of 25 mg) Oral daily, Furosemide 1 Tabminder (of 40 mg) Tablet Oral daily PRN, hydrALAZINE HCl 2 Tablet (of 50 mg) Oral t.i.d., HYDROcodone-Acetaminophen 1 Tablet (of 5-325 mg) Oral PRN, Levemir Flexpen Subcutaneous Take as Directed, LORazepam 0.5 - 1 Tablet (of 1 mg) Oral t.i.d., Lyrica 1 - 2 Capsule (of 75 mg) Oral daily, NovoLIN 70/30 25 Units (of (70-30) 100 Units/mL) Subcutaneous b.i.d., Protonix 1 Capsule (of 40 mg) Tablet, enteric coated Oral daily, Simvastatin 1 Tablet (of 40 mg) Oral daily, Synthroid 1 Tablet (of 150 mcg) Oral daily, Vitamin D 1 Tablet (of 06374 Units) Oral q 7 days PRN Allergies: No Known Allergies. Review of Systems: Constitutional - He feels pretty good, but he has limited activity. He is doing some light walking. Appetite is poor but he is able to eat. His weight is down a few pounds. No fever, chills, hot flashes, or night sweats. ECOG score is 2, ENMT - No sinus congestion/drainage. He has mouth sores. No sore throat or difficulty swallowing, Hematologic/Lymphatic - No abnormal bruising or bleeding, Respiratory - No shortness of breath. No cough. No pleuritic pain or hemoptysis, Cardiovascular - No angina pain. No palpitations, Gastrointestinal - No nausea or vomiting. No heartburn or acid reflux. No diarrhea. He had some constipation that was relieved with stool softner. No blood in the stool or black stools, Genitourinary (M) - No dysuria or hematuria. No urinary frequency. No urgency or incontinence, Musculoskeletal - No joint or bone pain, Integumentary - No skin complications, Neurologic - No headache or dizziness. No numbness/paresthesias or other focal neurologic symptoms, Psychiatric - He has some nervousness. No depression. No insomnia. Vital Signs: Performed on Dec 30, 2019 08:35 Height - 68.00 in Weight - 263.0 lbs (LOW) BSA - 2.30 sq.m BMI - 39.99 (HIGH) Temperature - 99.1 F (HIGH) Pulse - 69 /min Respiration - 24 /min BP - 173/50 mm(hg) (HIGH) O2 Sat - 97 % Pain - 9 Physical Examination: Constitutional - He appears somewhat weak generally, Eyes - Sclerae nonicteric. Conjunctivae clear, ENMT - No lesions noted in the oral cavity, Neck - No mass or thyromegaly, Hematologic/Lymphatic - No cervical, clavicular, or axillary adenopathy, Respiratory - Lungs sound clear, Cardiovascular - Heart rhythm is regular. There is a II/ systolic murmur. There is no gallop or rub noted, Chest - He has an open wound at the port site in the upper right chest, Abdomen - Distended. Liver and spleen do not appear overtly enlarged. There is no abdominal mass or ascites noted and there is no inguinal adenopathy, Extremities - No edema, Neurologic - No focal neurologic deficits noted. Lab/Imagin, and platelet count 337,000. CBC shows hemoglobin 9.1 g, white blood cell count. Comprehensive metabolic profile shows stable renal function with BUN and creatinine at 28 and 1.9 mg/dL and elevated nonfasting blood sugar 252 mg/dL. LDH is mildly elevated at 292/225 U/L. Impression: 1. Patient with follicular lymphoma, grade 3B. The FISH prognostic profile was negative for double hit lymphoma. By clinical evaluation he appears to have stage II disease with involvement limited to the nasopharyngeal soft tissues and left cervical lymph nodes. 2. He has chronic illness and generally poor performance status. His other medical illnesses include: 3. Hypertension. 4. Hyperlipidemia. 5. Type 2 diabetes. 6. Chronic kidney disease. 7. Coronary artery disease with previous coronary artery bypass. 8. Atrial fibrillation. 9. Carotid stenosis with previous right carotid endarterectomy. 10. Hypothyroidism. 11. Degenerative arthritis. In the setting of grade 3B follicular lymphoma and localized involvement, he was recommended undergo short course R-CHOP chemotherapy followed by involved field radiation. His baseline echocardiogram showed normal left ventricular function with ejection fraction at 74%. He began cycle 1 of R-CHOP on 11/18/2019. He was given first cycle prophylaxis with Neulasta. Overall, he tolerated the treatment pretty well. He has had some fatigue, and he had musculoskeletal pain following the Neulasta injection. His blood counts remained adequate. He continued with cycle 2 on 12/09/2019. He has since then had some further decline in his activity tolerance. He again experienced musculoskeletal pain with the Neulasta injection. He also had insomnia and increased blood sugars with the prednisone. He developed an infection at the Port-A-Cath site in the upper right chest wall, requiring removal of the Port-A-Cath. Due to restrictions caused by the coronavirus pandemic, he has not been able to get a restaging PET/CT. Plan: He will continue with cycle 3 of R-CHOP chemotherapy. The dosages will remain the same. For now we will continue antibiotic coverage with Augmentin. As his performance status is declining, I am hoping to be able to get a restaging PET/CT within the next 2 to 3 weeks. If he has a complete response, I will plan to proceed with consolidation radiation, as I would like to avoid further chemotherapy if possible. Signed By: Eliud Bob M.D. <<Signature on File>>
== END 2019-12-30 23:59 | disposition home or self-care (01) ==
LOC: ONCMED 15:20
PROVIDERS: Family Provider Nurse Practitioner Family; PCP Nurse Practitioner Family; Visit Provider Internal Medicine Medical Oncology
DX: Z51.12 Encounter for antineoplastic immunotherapy (principal); Z51.11 Encounter for antineoplastic chemotherapy; C82.21 Follicular lymphoma grade III, unspecified, lymph nodes of head, face, and neck; I12.9 Hypertensive chronic kidney disease with stage 1 through stage 4 chronic kidney disease, or unspecified chronic kidney disease; E11.22 Type 2 diabetes mellitus with diabetic chronic kidney disease; N18.9 Chronic kidney disease, unspecified; E78.5 Hyperlipidemia, unspecified; I25.10 Atherosclerotic heart disease of native coronary artery without angina pectoris; I48.91 Unspecified atrial fibrillation; E03.9 Hypothyroidism, unspecified; M19.90 Unspecified osteoarthritis, unspecified site; F17.220 Nicotine dependence, chewing tobacco, uncomplicated; Z79.4 Long term (current) use of insulin; Z95.1 Presence of aortocoronary bypass graft
CPT/HCPCS: 80053; 83615; 85025; 96367; 96372; 96411; 96413; 96415; 96417; 99214; J1100; J1200; J1453; J1815; J2469; J2505; J7030; J7040; J9000; J9070; J9312; J9370

== ENCOUNTER 2020-01-06 07:21 | Outpatient (RCR) | payer MEDICARE, SELFPAY | END 2020-01-06 23:59 | disposition home or self-care (01) | LOC: ONCMED 07:21 | PROVIDERS: Family Provider Nurse Practitioner Family; PCP Nurse Practitioner Family; Visit Provider Internal Medicine Medical Oncology | DX: Z45.2 Encounter for adjustment and management of vascular access device (principal) ==

== ENCOUNTER 2020-01-07 22:22 | Inpatient (IN) | payer MEDICARE, SELFPAY ==
[2020-01-07 22:23] VITALS: BP 144/42; PULSE 91; RESP 20; TEMP 38.1; O2SAT 94; BMI 39.5
--- NOTE | 2020-01-07 22:32 | XR_ITS ---
WS: [id number] CHEST XRAY TECHNIQUE: Portable chest. CLINICAL INFORMATION: cough COMPARISON: December 29, 2019 FINDINGS: Left PICC line with tip in the distal SVC. Heart: Normal cardiac silhouette. Sternotomy. Lungs: Lungs are clear. No consolidation or pleural effusion. No focal pneumonia. Calcified granuloma s. Bones: Normal visualized bony structures. XR/XR chest 1V portable [id number] IMPRESSION: 1. Left PICC line tip in distal SVC in good position. 2. No pneumothorax. 3. No acute pulmonary infiltrates.
--- NOTE | 2020-01-07 22:33 | CTR_ITS ---
PROCEDURE INFORMATION: Exam: CT Head Without Contrast Exam date and time: 01/07/2020 10:34 PM Age: 74 years old Clinical indication: Altered mental status/memory loss; Patient HX: HX neck CA, on chemo; Additional info: [place]/ams TECHNIQUE: Imaging protocol: Computed tomography of the head without contrast. Total DLP: 1313.22 mGy-cm Radiation optimization: All CT scans at this facility use at least one of these dose optimization techniques: automated exposure control; mA and/or kV adjustment per patient size (includes targeted exams where dose is matched to clinical indication); or iterative reconstruction. COMPARISON: No relevant prior studies available. FINDINGS: Brain: There is mild diffuse cerebral atrophy. There is no significant mass effect or midline shift. There is no acute intracranial hemorrhage. Ventricles: Normal. No ventriculomegaly. Bones/joints: The calvarium is intact. Sinuses: The paranasal sinuses are clear. Mastoid air cells: Trace right mastoid effusion. Soft tissues: The visible extracranial soft tissues are unremarkable. CT/CT head wo con* [id number] IMPRESSION: No acute findings. Radiation Dose CTDIVOL = (mGy): DLP = 1313.22 (mGy-cm)
[2020-01-07 22:50] LABS: Hemoglobin 7.6 g/dL (11.7-16.6); Lymphocytes # 0.1 10^3/uL (0.8-4.8); Mean Corpuscular HGB Conc 31.7 g/dL (30.0-36.0); Mean Corpuscular Hemoglobin 31.7 pg (28.0-34.0); Mean Platelet Volume 11.5 fL (7.4-10.4); Monocytes # 0.1 10^3/uL (0.2-0.9); Nucleated Red Blood Cells % 0 %; Platelet Count 32 10^3/cmm (130-400); Red Cell Distribution Width 14.5 % (12.1-15.1)
[2020-01-07 23:00] LABS: White Blood Count 0.3 10^3/uL (4.0-10.0)
[2020-01-07 23:04] LABS: Ketone (Acetest) Serum Negative (Negative)
[2020-01-07 23:05] LABS: Alanine Aminotransferase 19 U/L (0-41); Albumin Level 3.7 g/dL (3.5-5.2); Alkaline Phosphatase 62 IU/L (40-130); Ammonia 22 umol/L (16-60); Anion Gap 16.1 (5-19); Aspartate Amino Transferase 17 U/L (0-40); Blood Urea Nitrogen 41 mg/dL (8-23); Calcium 9.2 mg/dL (8.5-10.5); Carbon Dioxide 26 mmol/L (22-29); Chloride 100 mmol/L (98-107); Globulin 2.1 g/dL (1.3-4.6); Glucose 155 mg/dL (65-115); Lipase 15 U/L (13-60); Osmolality Calculated 285 mOsm/kg (285-295); Potassium 5.1 mmol/L (3.5-5.1); Sodium 137 mmol/L (136-145); Total Bilirubin 0.7 mg/dL (0.15-1.2); Total Protein 5.8 g/dL (6.6-8.7)
[2020-01-07 23:11] LABS: Troponin(5th) Baseline 86 ng/mL (0-15)
--- NOTE | 2020-01-07 23:19 | ED_ITS ---
HPI - Fever General: Chief Complaint: Fever Stated Complaint: HIGH FEVER Time Seen by Provider: 01/07/20 22:24 History of Present Illness: HPI Narrative: Mr. Blake is a nice 74-year-old male who comes in complaining of fever. History is somewhat limited as the patient has confusion. EMS reports that he had a temperature of 100.6 and that is what prompted them to bring him here. He states he is not been feeling well today he thinks he may have had chemo yesterday. No family is available to confirm this. Patient is confused as to place and time. 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, R-chop treatment, followed by field radiation Gastroesophageal reflux Heart murmur EF 74% Hypertension Hypothyroidism Nonrheumatic aortic valve sclerosis Port-A-Cath in place Removal after second cycle, infected with enterococcus removal on 12/23/2019 currently on Augmentin, status post PICC line Catheter Tip Culture Preliminary (changed) 12/27/19- 1046 Organism 1 Pseudomonas aeruginosa Growth >15 COLONIES Organism 2 Streptococcus species Growth <15 COLONIES Organism 3 Morganella morganii Growth <15 COLONIES Type 2 diabetes mellitus Surgical History History of heart surgery History of knee replacement History of right-sided carotid endarterectomy Hx of CABG Family History Father Stroke Hypertension Brother Hypertension Sister Hypertension Social History Smoking and tobacco status: former smoker Alcohol intake: never History of recent travel: No Physical Exam Const: COMMON NORMALS: no apparent distress, no limitations, healthy appearing, alert and well nourished EXAM LIMITATIONS: no altered mental status GENERAL APPEARANCE: cooperative, well kempt, well developed and lethargic ORIENTATION/CONSCIOUSNESS: Yes awake, Yes oriented to person and Yes lethargic HENMT: COMMON NORMALS: normocephalic, head/scalp atraumatic, hearing grossly normal bilaterally, external ears normal, EAC's normal, external nose normal and moist oral mucous membranes HEAD & SCALP: normal to inspection, normocephalic and atraumatic FACE & SINUS: normal facial exam and face symmetric NOSE: external nose normal and nares normal EXTERNAL EAR: Yes external ears normal EXTERNAL AUDITORY CANAL: EAC's normal MOUTH: oral and palatal mucosa normal and tongue normal Eye: COMMON NORMALS: PERRL, EOMs intact bilaterally, conjunctivae normal and no scleral icterus GENERAL EYE: normal appearance of both eyes and normal light reflex CONJUNCTIVA: Yes conjunctivae normal SCLERA: sclerae normal CORNEA: Yes corneas normal PUPIL: Yes PERRL DIRECT OPHTHALMOSCOPY: Yes normal light reflex Neck/C-Spine: COMMON NORMALS: full ROM, no lymphadenopathy, supple, no meningeal signs and no JVD GENERAL: Yes normal visual inspection and Yes trachea midline CERVICAL SPINE: Yes cervical ROM normal Chest: CHEST: Yes other (Right upper chest with open wound with surrounding cellulitis. Port removal.) Resp: COMMON NORMALS: normal respiratory effort, no retractions, no use of accessory muscles and clear to auscultation bilaterally EFFORT & INSPECTION: Yes able to speak in complete sentences AUSCULTATION: clear to auscultation bilaterally Cardio: COMMON NORMALS: no JVD, regular rate, regular rhythm, S1 normal heart sound, S2 normal heart sound, no gallops, no clicks, no murmurs and no rub JUGULAR VENOUS DISTENTION: no JVD RATE: regular rate RHYTHM: regular rhythm HEART SOUNDS: S1 normal and S2 normal GI: COMMON NORMALS: soft to palpation, non-tender, no hepatosplenomegaly and no masses INSPECTION: Yes normal to inspection PALPATION: Yes soft and Yes no hepatosplenomegaly : COMMON NORMALS: Yes no CVA tenderness BLADDER/KIDNEY EXAM: Yes no CVA tenderness Back/Pelvis: COMMON NORMALS: no CVA tenderness, thoracic and lumbar spine normal to inspection, no thoracic nor lumbar tenderness and thoraco-lumbar ROM normal Extremity: COMMON NORMALS: normal to inspection, full ROM, normal capillary refill, no joint enlargement, no clubbing, cyanosis or edema and no calf tenderness OTHER: Bilateral lower extremity swelling and edema right greater than left. Neuro: COMMON NORMALS: CN's II-XII intact bilaterally, moves all extremities, no focal motor deficits and no sensory deficits noted SENSORIUM/ORIENTATION: Yes alert, Yes oriented to person and Yes lethargic MENINGEAL SIGNS: Yes no meningeal signs Psych: COMMON NORMALS: mental status grossly normal, thought process normal, cooperative, affect normal, speech normal and activity/motor behavior normal APPEARANCE: Yes well kempt SPEECH: Yes normal speech THOUGHT PROCESS: normal thought process Skin: COMMON NORMALS: no rashes or lesions noted, skin turgor normal, no jaundice, no petechiae and no mottling GENERAL SKIN EXAM: no rashes or lesions noted and turgor normal Course Vital Signs: Vital signs: Vital Signs Temperature 100.6 F H 01/07/20 22:23 Pulse Rate 72 01/08/20 00:56 Respiratory Rate 18 01/08/20 00:56 Blood Pressure 131/49 01/08/20 00:56 Pulse Oximetry 97 01/08/20 00:56 MDM - Fever MDM Narrative: Medical decision making narrative: 0100 -the case was reviewed with Dr. Alvarez, he agrees to come and evaluate the patient and assume care. He will change CT scans to his preference. He agrees with leukocyte depleted irradiated packed red blood cells. I did place a call to Dr. Bob but was unable to reach him for further guidance. Patient was loaded with empiric Zosyn and vancomycin for skin coverage as well as neutropenic fever coverage. Further care will be performed by Dr. Alvarez. Lab Data: Attestation: I reviewed the patient's lab results. Labs: Lab Results 01/07/20 01/07/20 01/07/20 Range/Units 22:40 22:40 22:40 WBC 0.3 L* (4.0-10.0) 10^3/ uL RBC 2.40 L (4.1-5.3) 10^6/u L Hgb 7.6 L (11.7-16.6) g/dL Hct 24.0 L (42.0-52.0) % MCV 100.0 H (80-94) fL MCH 31.7 (28.0-34.0) pg MCHC 31.7 (30.0-36.0) g/dL RDW 14.5 (12.1-15.1) % Plt Count 32 L (130-400) 10^3/c mm MPV 11.5 H (7.4-10.4) fL Neut % (Auto) 4.0 % Lymph % (Auto) 44.0 % Hayes % (Auto) 44.0 % Eos % (Auto) 4.0 % Baso % (Auto) 4.0 % Neut # (Auto) 0.0 L* (1.8-7.7) 10^3/u L Lymph # (Auto) 0.1 L (0.8-4.8) 10^3/u L Hayes # (Auto) 0.1 L (0.2-0.9) 10^3/u L Eos # (Auto) 0.0 (0.0-0.8) 10^3/u L Baso # (Auto) 0.0 (0.0-0.1) 10^3/u L Nucleated RBC % (a uto) 0 % Total Counted 25 (0-100) Segmented Neutroph ils 2 % Lymphocytes (Manua l) 17 % Monocytes (Manual) 4.0 % Absolute Monocytes 0.0 L (0.1-0.6) 10^3/c mm Myelocytes 2.0 % Nucleated RBCs 1.0 (0-1) /100WBC Nucleated RBCs # 0.0 /100WBC Platelet Estimate Decreased (Normal) Polychromasia Trace Hypochromasia 1+ H Specimen Type Sample Site ABG pH (7.35-7.45) ABG pCO2 (35-45) mmHg ABG pO2 (80.0-100.0) mmH g ABG HCO3 (22-26) mmol/L ABG Base Excess (-2.0-2.0) mmol/ L Vinny Test Hematocrit (42-52) % O2 Delivery Device FiO2 % Order Control Clerk Blood Bank ID Sodium 137 (136-145) mmol/L Potassium 5.1 (3.5-5.1) mmol/L Chloride 100 (98-107) mmol/L Carbon Dioxide 26 (22-29) mmol/L Anion Gap 16.1 (5-19) BUN 41 H (8-23) mg/dL Creatinine 1.9 H (0.7-1.2) mg/dL Glucose 155 H (65-115) mg/dL Calculated Osmolal ity 285 (285-295) mOsm/k g Lactic Acid (0.5-2.2) mmol/L Calcium 9.2 (8.5-10.5) mg/dL Magnesium 2.0 (1.7-2.3) mg/dL Total Bilirubin 0.7 (0.15-1.2) mg/dL AST 17 (0-40) U/L ALT 19 (0-41) U/L Alkaline Phosphata se 62 (40-130) IU/L Ammonia 22 (16-60) umol/L Troponin T Baselin e (0-15) ng/mL C-Reactive Protein (0.0-4.9) mg/L Total Protein 5.8 L (6.6-8.7) g/dL Albumin 3.7 (3.5-5.2) g/dL Globulin 2.1 (1.3-4.6) g/dL Lipase 15 (13-60) U/L Procalcitonin (0-0.5) ng/mL Urine Color (Yellow) Urine Appearance (CLEAR) Urine pH (5-7) Ur Specific Gravit y (1.005-1.030) Urine Protein (Negative) Urine Glucose (UA) (Normal) Urine Ketones (Negative) Urine Blood (Negative) Urine Nitrate (Negative) Urine Bilirubin (NEGATIVE) Urine Urobilinogen (Negative) mg/dL Ur Leukocyte Mary ase (Negative) Urine RBC (0-2) /hpf Urine WBC (0-5) /hpf Ur Squamous Epith Cells (0-5) Ur Transition Epit h Cell /hpf Ur Renal Epithelia l Cell /hpf Urine Bacteria (NONE) Serum Ketones (Negative) Influenza Type A A g (Negative) Influenza Type B A g (Negative) Blood Type Rho(D) Type Antibody Screen Crossmatch 01/07/20 01/07/20 01/07/20 Range/Units 22:40 22:40 22:40 WBC (4.0-10.0) 10^3/ uL RBC (4.1-5.3) 10^6/u L Hgb (11.7-16.6) g/dL Hct (42.0-52.0) % MCV (80-94) fL MCH (28.0-34.0) pg MCHC (30.0-36.0) g/dL RDW (12.1-15.1) % Plt Count (130-400) 10^3/c mm MPV (7.4-10.4) fL Neut % (Auto) % Lymph % (Auto) % Hayes % (Auto) % Eos % (Auto) % Baso % (Auto) % Neut # (Auto) (1.8-7.7) 10^3/u L Lymph # (Auto) (0.8-4.8) 10^3/u L Hayes # (Auto) (0.2-0.9) 10^3/u L Eos # (Auto) (0.0-0.8) 10^3/u L Baso # (Auto) (0.0-0.1) 10^3/u L Nucleated RBC % (a uto) % Total Counted (0-100) Segmented Neutroph ils % Lymphocytes (Manua l) % Monocytes (Manual) % Absolute Monocytes (0.1-0.6) 10^3/c mm Myelocytes % Nucleated RBCs (0-1) /100WBC Nucleated RBCs # /100WBC Platelet Estimate (Normal) Polychromasia Hypochromasia Specimen Type Sample Site ABG pH (7.35-7.45) ABG pCO2 (35-45) mmHg ABG pO2 (80.0-100.0) mmH g ABG HCO3 (22-26) mmol/L ABG Base Excess (-2.0-2.0) mmol/ L Vinny Test Hematocrit (42-52) % O2 Delivery Device FiO2 % Order Control Clerk Blood Bank ID Sodium (136-145) mmol/L Potassium (3.5-5.1) mmol/L Chloride (98-107) mmol/L Carbon Dioxide (22-29) mmol/L Anion Gap (5-19) BUN (8-23) mg/dL Creatinine (0.7-1.2) mg/dL Glucose (65-115) mg/dL Calculated Osmolal ity (285-295) mOsm/k g Lactic Acid 2.0 (0.5-2.2) mmol/L Calcium (8.5-10.5) mg/dL Magnesium (1.7-2.3) mg/dL Total Bilirubin (0.15-1.2) mg/dL AST (0-40) U/L ALT (0-41) U/L Alkaline Phosphata se (40-130) IU/L Ammonia (16-60) umol/L Troponin T Baselin e 86 H (0-15) ng/mL C-Reactive Protein (0.0-4.9) mg/L Total Protein (6.6-8.7) g/dL Albumin (3.5-5.2) g/dL Globulin (1.3-4.6) g/dL Lipase (13-60) U/L Procalcitonin (0-0.5) ng/mL Urine Color (Yellow) Urine Appearance (CLEAR) Urine pH (5-7) Ur Specific Gravit y (1.005-1.030) Urine Protein (Negative) Urine Glucose (UA) (Normal) Urine Ketones (Negative) Urine Blood (Negative) Urine Nitrate (Negative) Urine Bilirubin (NEGATIVE) Urine Urobilinogen (Negative) mg/dL Ur Leukocyte Mary ase (Negative) Urine RBC (0-2) /hpf Urine WBC (0-5) /hpf Ur Squamous Epith Cells (0-5) Ur Transition Epit h Cell /hpf Ur Renal Epithelia l Cell /hpf Urine Bacteria (NONE) Serum Ketones Negative (Negative) Influenza Type A A g (Negative) Influenza Type B A g (Negative) Blood Type Rho(D) Type Antibody Screen Crossmatch 01/07/20 01/07/20 01/07/20 Range/Units 22:40 23:27 23:30 WBC (4.0-10.0) 10^3/ uL RBC (4.1-5.3) 10^6/u L Hgb (11.7-16.6) g/dL Hct (42.0-52.0) % MCV (80-94) fL MCH (28.0-34.0) pg MCHC (30.0-36.0) g/dL RDW (12.1-15.1) % Plt Count (130-400) 10^3/c mm MPV (7.4-10.4) fL Neut % (Auto) % Lymph % (Auto) % Hayes % (Auto) % Eos % (Auto) % Baso % (Auto) % Neut # (Auto) (1.8-7.7) 10^3/u L Lymph # (Auto) (0.8-4.8) 10^3/u L Hayes # (Auto) (0.2-0.9) 10^3/u L Eos # (Auto) (0.0-0.8) 10^3/u L Baso # (Auto) (0.0-0.1) 10^3/u L Nucleated RBC % (a uto) % Total Counted (0-100) Segmented Neutroph ils % Lymphocytes (Manua l) % Monocytes (Manual) % Absolute Monocytes (0.1-0.6) 10^3/c mm Myelocytes % Nucleated RBCs (0-1) /100WBC Nucleated RBCs # /100WBC Platelet Estimate (Normal) Polychromasia Hypochromasia Specimen Type Arterial Sample Site Radial, right ABG pH 7.45 (7.35-7.45) ABG pCO2 40.7 (35-45) mmHg ABG pO2 64.3 L (80.0-100.0) mmH g ABG HCO3 28.5 H (22-26) mmol/L ABG Base Excess 4.2 H (-2.0-2.0) mmol/ L Vinny Test Pos Hematocrit 28.6 L (42-52) % O2 Delivery Device None FiO2 21.0 % Order Control Clerk Blood Bank ID [email or web address] Sodium (136-145) mmol/L Potassium (3.5-5.1) mmol/L Chloride (98-107) mmol/L Carbon Dioxide (22-29) mmol/L Anion Gap (5-19) BUN (8-23) mg/dL Creatinine (0.7-1.2) mg/dL Glucose (65-115) mg/dL Calculated Osmolal ity (285-295) mOsm/k g Lactic Acid (0.5-2.2) mmol/L Calcium (8.5-10.5) mg/dL Magnesium (1.7-2.3) mg/dL Total Bilirubin (0.15-1.2) mg/dL AST (0-40) U/L ALT (0-41) U/L Alkaline Phosphata se (40-130) IU/L Ammonia (16-60) umol/L Troponin T Baselin e (0-15) ng/mL C-Reactive Protein 55.7 H (0.0-4.9) mg/L Total Protein (6.6-8.7) g/dL Albumin (3.5-5.2) g/dL Globulin (1.3-4.6) g/dL Lipase (13-60) U/L Procalcitonin 0.33 (0-0.5) ng/mL Urine Color (Yellow) Urine Appearance (CLEAR) Urine pH (5-7) Ur Specific Gravit y (1.005-1.030) Urine Protein (Negative) Urine Glucose (UA) (Normal) Urine Ketones (Negative) Urine Blood (Negative) Urine Nitrate (Negative) Urine Bilirubin (NEGATIVE) Urine Urobilinogen (Negative) mg/dL Ur Leukocyte Mary ase (Negative) Urine RBC (0-2) /hpf Urine WBC (0-5) /hpf Ur Squamous Epith Cells (0-5) Ur Transition Epit h Cell /hpf Ur Renal Epithelia l Cell /hpf Urine Bacteria (NONE) Serum Ketones (Negative) Influenza Type A A g (Negative) Influenza Type B A g (Negative) Blood Type A Positive Rho(D) Type Positive Antibody Screen Negative Crossmatch See Detail 01/07/20 01/07/20 Range/Units 23:39 23:39 WBC (4.0-10.0) 10^3/ uL RBC (4.1-5.3) 10^6/u L Hgb (11.7-16.6) g/dL Hct (42.0-52.0) % MCV (80-94) fL MCH (28.0-34.0) pg MCHC (30.0-36.0) g/dL RDW (12.1-15.1) % Plt Count (130-400) 10^3/c mm MPV (7.4-10.4) fL Neut % (Auto) % Lymph % (Auto) % Hayes % (Auto) % Eos % (Auto) % Baso % (Auto) % Neut # (Auto) (1.8-7.7) 10^3/u L Lymph # (Auto) (0.8-4.8) 10^3/u L Hayes # (Auto) (0.2-0.9) 10^3/u L Eos # (Auto) (0.0-0.8) 10^3/u L Baso # (Auto) (0.0-0.1) 10^3/u L Nucleated RBC % (a uto) % Total Counted (0-100) Segmented Neutroph ils % Lymphocytes (Manua l) % Monocytes (Manual) % Absolute Monocytes (0.1-0.6) 10^3/c mm Myelocytes % Nucleated RBCs (0-1) /100WBC Nucleated RBCs # /100WBC Platelet Estimate (Normal) Polychromasia Hypochromasia Specimen Type Sample Site ABG pH (7.35-7.45) ABG pCO2 (35-45) mmHg ABG pO2 (80.0-100.0) mmH g ABG HCO3 (22-26) mmol/L ABG Base Excess (-2.0-2.0) mmol/ L Vinny Test Hematocrit (42-52) % O2 Delivery Device FiO2 % Order Control Clerk Blood Bank ID Sodium (136-145) mmol/L Potassium (3.5-5.1) mmol/L Chloride (98-107) mmol/L Carbon Dioxide (22-29) mmol/L Anion Gap (5-19) BUN (8-23) mg/dL Creatinine (0.7-1.2) mg/dL Glucose (65-115) mg/dL Calculated Osmolal ity (285-295) mOsm/k g Lactic Acid (0.5-2.2) mmol/L Calcium (8.5-10.5) mg/dL Magnesium (1.7-2.3) mg/dL Total Bilirubin (0.15-1.2) mg/dL AST (0-40) U/L ALT (0-41) U/L Alkaline Phosphata se (40-130) IU/L Ammonia (16-60) umol/L Troponin T Baselin e (0-15) ng/mL C-Reactive Protein (0.0-4.9) mg/L Total Protein (6.6-8.7) g/dL Albumin (3.5-5.2) g/dL Globulin (1.3-4.6) g/dL Lipase (13-60) U/L Procalcitonin (0-0.5) ng/mL Urine Color Yellow (Yellow) Urine Appearance Clear (CLEAR) Urine pH 7 (5-7) Ur Specific Gravit y 1.005 (1.005-1.030) Urine Protein Neg (Negative) Urine Glucose (UA) 4+ H (Normal) Urine Ketones Negative (Negative) Urine Blood Neg (Negative) Urine Nitrate Negative (Negative) Urine Bilirubin Neg (NEGATIVE) Urine Urobilinogen Norm (Negative) mg/dL Ur Leukocyte Mary ase Negative (Negative) Urine RBC 0-4 H (0-2) /hpf Urine WBC None (0-5) /hpf Ur Squamous Epith Cells None (0-5) Ur Transition Epit h Cell None /hpf Ur Renal Epithelia l Cell None /hpf Urine Bacteria None (NONE) Serum Ketones (Negative) Influenza Type A A g Negative (Negative) Influenza Type B A g Negative (Negative) Blood Type Rho(D) Type Antibody Screen Crossmatch Imaging Data^: CXR: My impression: No acute cardiopulmonary findings. CT Head: Radiologist's impression: [place] [address] CT Scan Report Signed Patient: Julius Blake Unit #: [id number] : 1945 Age/Sex: 74 / M ADM Date: 01/07/20 Loc: ER Room/Bed: Attending Dr: Ordering Provider/Ordering MD: Rosi Kowalski DO Date of Service: 01/07/20 Procedure(s): CT head wo con* [id number] Accession Number(s): [id number] Report Number: [id number] PROCEDURE INFORMATION: Exam: CT Head Without Contrast Exam date and time: 01/07/2020 10:34 PM Age: 74 years old Clinical indication: Altered mental status/memory loss; Patient HX: HX neck CA, on chemo; Additional info: [place]/ams TECHNIQUE: Imaging protocol: Computed tomography of the head without contrast. Total DLP: 1313.22 mGy-cm Radiation optimization: All CT scans at this facility use at least one of these dose optimization techniques: automated exposure control; mA and/or kV adjustment per patient size (includes targeted exams where dose is matched to clinical indication); or iterative reconstruction. COMPARISON: No relevant prior studies available. FINDINGS: Brain: There is mild diffuse cerebral atrophy. There is no significant mass effect or midline shift. There is no acute intracranial hemorrhage. Ventricles: Normal. No ventriculomegaly. Bones/joints: The calvarium is intact. Sinuses: The paranasal sinuses are clear. Mastoid air cells: Trace right mastoid effusion. Soft tissues: The visible extracranial soft tissues are unremarkable. CT/CT head wo con* [id number] IMPRESSION: No acute findings. Radiation Dose CTDIVOL = (mGy): DLP = 1313.22 (mGy-cm) Dictated By: Giorgio Rhodes MD Signed By: Giorgio Rhodes MD Signed Date/Time: 01/08/2051 DD/ Other Imaging: Radiologist's impression: [address] [address] [address] Scan Report Signed Patient: Julius Blake Unit #: [id number] : 1945 Age/Sex: 74 / M ADM Date: 01/08/20 Loc: ICU Room/Bed: [place] [address]: Mino Alvarez MD Ordering Provider/Ordering MD: Mino Alvarez MD Date of Service: 01/07/20 Procedure(s): CT chest abd pel wo con Accession Number(s): [id number] Report Number: [id number] PROCEDURE INFORMATION: Exam: CT Chest Without Contrast Exam date and time: 01/08/2020 12:23 AM Age: 74 years old Clinical indication: Abdominal pain; Generalized; Chest pain; Prior surgery; Surgery type: Cabg; Patient HX: HX neck CA, on chemo; Additional info: Neutropenic TECHNIQUE: Imaging protocol: Computed tomography of the chest without contrast. Total DLP: 2667.48 mGy-cm Radiation optimization: All CT scans at this facility use at least one of these dose optimization techniques: automated exposure control; mA and/or kV adjustment per patient size (includes targeted exams where dose is matched to clinical indication); or iterative reconstruction. COMPARISON: No relevant prior studies available. FINDINGS: Tubes, catheters and devices: Tip of the left PICC line at the cavoatrial junction. Lungs: Calcified granuloma in the periphery of the right upper lobe, most apparent on sagittal and coronal images. Minimal stranding in the left lung base. No consolidation. Pleural space: Unremarkable. No pneumothorax. No pleural effusion. Heart: No cardiomegaly or pericardial effusion. Anterior pericardial electrode. Mediastinum: Small hiatal hernia. Aorta: Atherosclerosis. No aortic aneurysm. Lymph nodes: Calcified nodes in the right hilum and mediastinum. No enlarged noncalcified nodes. Bones/joints: Median sternotomy. Old compression fractures. Slight degeneration of several discs. Increased kyphosis. Prominent degeneration of the right glenohumeral joint; probable loose bodies in this joint. Soft tissues: Surgical clips in the right neck. IMPRESSION: 1. Tip of the left PICC line at the cavoatrial junction. 2. No consolidation in the lungs. Small hiatal hernia. Other findings detailed above. PROCEDURE INFORMATION: Exam: CT Abdomen And Pelvis Without Contrast Exam date and time: 01/08/2020 12:23 AM Age: 74 years old Clinical indication: Abdominal pain; Generalized; Chest pain; Prior surgery; Surgery type: Cabg; Patient HX: HX neck CA, on chemo; Additional info: Neutropenic TECHNIQUE: Imaging protocol: Computed tomography of the abdomen and pelvis without contrast. Total DLP: 2667.48 mGy-cm Radiation optimization: All CT scans at this facility use at least one of these dose optimization techniques: automated exposure control; mA and/or kV adjustment per patient size (includes targeted exams where dose is matched to clinical indication); or iterative reconstruction. COMPARISON: No relevant prior studies available. FINDINGS: Limitations: Streak artifacts from the patient's arms. Liver: No suggestion of liver disease. Gallbladder and bile ducts: Calcified stones in the dependent gallbladder. No biliary ductal dilatation. Pancreas: Fatty infiltration of the pancreas. No apparent ductal dilatation. Spleen: No splenomegaly. Adrenals: No apparent adrenal mass. Kidneys and ureters: No hydronephrosis or apparent renal mass. Stomach and bowel: Nondistended stomach. No obstruction. Mild sigmoid diverticulosis. Appendix: No appendicitis. Intraperitoneal space: No free air. No significant fluid collection. Vasculature: Atherosclerosis. No aortic aneurysm. Lymph nodes: No enlarged nodes. Bladder: Unremarkable as visualized. Reproductive: Unremarkable as visualized. Bones/joints: Old compression fractures. Degeneration of several discs. Minimal spondylolisthesis at L4-L5. Soft tissues: End of the pericardial electrode in the left upper anterior abdominal wall. Mild right parasagittal subxiphoid ventral hernia containing fat. CT/CT chest abd pel wo con IMPRESSION: No acute process. Cholelithiasis. Other findings detailed above. Radiation Dose CTDIVOL = (mGy): DLP = 2667.48 2667.48 (mGy-cm) Dictated By: Jessica Nagel MD Signed By: Jessica Nagel MD Signed Date/Time: 01/08/20116 DD/ 5 EKG Data^: EKG 1: Attestation: I personally reviewed and interpreted this EKG as follows: EKG interpretation date: 01/08/20 EKG interpretation time: 00:54 Interpretation: Normal sinus rhythm at 77 beats a minute, normal axis, baseline artifact, nonspecific ST and T wave changes. Discharge Plan Discharge Patient Disposition: Admitted As Inpatient Admit Provider: Mino Alvarez Clinical Impression: Neutropenic fever Cellulitis Qualifiers: Site of cellulitis: trunk Site of cellulitis of trunk: chest wall Qualified Code(s): L03.313 - Cellulitis of chest wall Condition: Stable Coding Level of Care Code ED Lens Grinder Apprentice for Chg Fwd Exam Comprehensive
--- NOTE | 2020-01-07 23:28 | P.HP_ITS ---
Providers/Chief Complaint Primary Care Provider: Ani Rosenthal NP Chief Complaint: HIGH FEVER History of Present Illness Julius Blake is a 74 year old male who carries diagnosis of follicular lymphoma stage IIIb started chemotherapy with R-CHOP 11/20, status post 2 cycles of chemotherapy, received 2 injections with Neulasta, after second chemotherapy Port-A-Cath site was removed due to Pseudomonas and enterococcus infection, cu rrently awaiting PET scan for restaging came in today because of generalized weakness. Patient is stating that his last chemotherapy session was on Sunday last week, since then his functional status has been declining, he is feeling more lethargic not able to walk on his own, he is feeling extremely tired and not able to get up from his couch on his own. His is not able to help him at all. He did not notice any chest pain, shortness of breath, abdominal pain, diarrhea or constipation, he is denying dysuria. No recent traveling, his is not suffering from any viral symptoms. Patient is stating: I am supposed to do physical work but I am not able to . Port-A-Cath was removed secondary to infection I have reviewed culture and sensitivity, it grew Pseudomonas, Morganella and enterococcus sensitive to penicillin, he has been taking Augmentin. His wound is still draining purulent discharge dressing was changed today twice. Diagnostics in ER revealed severe neutropenia, fever 100.6, mild tachycardia heart rate 91-95 Vancomycin and Zosyn, IV Tylenol 1 g dose given in ER Review of previous records revealed he developed reaction to Neulasta(extreme myalgia and pain at the injection site) He is anemic and neutropenic CT abdomen chest pelvis and head ordered without contrast because of creatinine 1.9 He has swelling of right leg greater than the left Patient is awake alert able to give me all the details but very drowsy and lethargic Review of Systems Const: Reports: fever, chills, body aches, change in appetite, change in weight, fatigue and malaise Eyes: Reports: eye discharge and increased production of tears ENMT: Reports: bleeding gums; Denies: throat pain or uvular edema Card: Reports: irregular heart rhythm, edema, swelling of feet/ankles and shortness of breath when lying down; Denies: chest pain or palpitations Resp: Denies: shortness of breath or productive cough GI: Denies: abdominal pain, nausea or vomiting : Denies: flank pain, difficulty urinating or urinary frequency Musc: Denies: neck pain or extremity swelling Skin/Breast: Reports: new lesion (Purulent discharge from Port-A-Cath removal site, dressing is soaked with yellow drainage); Denies: rash or itching Neuro: Reports: numbness in extremities, weakness in extremities, difficulty walking and confusion Psych: Reports: sleeping more Endo: Denies: excessive urination Layo/Lymph: Denies: easy bruising All/Imm: Denies: hives Medications/Allergies Allergies Allergy/AdvReac Type Severity Reaction Status Date / Time No Known Allergies Allergy Verified 12/26/19 07:54 PFSH Acute PFSH: Medical History Arthritis Asymptomatic bilateral carotid artery stenosis Atherosclerosis of coronary artery of [place] heart without angina pectoris Atrial fibrillation Benign essential hypertension with target blood pressure below 140/90 Chronic episodic atrial fibrillation Chronic kidney disease Baseline creatinine 1.8-2 Coronary artery disease Dyslipidemia (high LDL; low HDL) Follicular lymphoma Grade 3B involving left posterior cervical lymph nodes, R-chop treatment, followed by field radiation Gastroesophageal reflux Heart murmur EF 74% Hypertension Hypothyroidism Nonrheumatic aortic valve sclerosis Port-A-Cath in place Removal after second cycle, infected with enterococcus removal on 12/23/2019 currently on Augmentin, status post PICC line Catheter Tip Culture Preliminary (changed) 12/27/19- 1045 Organism 1 Pseudomonas aeruginosa Growth >15 COLONIES Organism 2 Streptococcus species Growth <15 COLONIES Organism 3 Morganella morganii Growth <15 COLONIES Type 2 diabetes mellitus Surgical History History of heart surgery History of knee replacement History of right-sided carotid endarterectomy Hx of CABG Family History Father Stroke Hypertension Brother Hypertension Sister Hypertension Social History Smoking and tobacco status: former smoker Alcohol intake: never History of recent travel: No Supplemental PFSH Information: Catheter Tip Culture Preliminary (changed) 12/27/19-1045 Organism 1 Pseudomonas aeruginosa Growth >15 COLONIES Organism 2 Streptococcus species Growth <15 COLONIES Organism 3 Morganella morganii Growth <15 COLONIES Vitals/I&O/Wt Last Vital Signs Temp 100.6 F H 01/07/20 22:23 Pulse 91 01/07/20 22:23 Resp 20 H 01/07/20 22:23 BP 144/42 01/07/20 22:23 Pulse Ox 94 01/07/20 22:23 Weight last 48 hrs Weight 117.934 kg Physical Exam Narrative: EXAM NARRATIVE: Obese male seems very lethargic and drowsy able to provide above-mentioned details No conjunctival hyperemia otherwise white clear discharge from eyes bilateral with mild crusting Aphthous ulcers on buccal mucosa S1, S2 variable, hard to assess JVD has bilateral lower extremity edema 2+ right greater than left leg Abdomen soft, nontender, bowel sounds sluggish, no skin breakdown around a bdominal folds, visceral obesity, Decreased breath sounds no adventitious sounds on lung auscultation He is moving all of his extremities on his own, awake but drowsy and lethargic Port-A-Cath removal site has purulent discharge soaked dressing, mild hyperemia around the border, pink granulation tissue PICC line in left arm Data : 01/07/20 22:40 01/07/20 22:40 Micro: Microbiology 01/07/20 22:45 Blood Culture - Preliminary Blood SPECIMEN COLLECTED 01/07/20 22:40 Blood Culture - Preliminary Blood SPECIMEN COLLECTED A&P Assessment and plan (1) Neutropenic fever: Status: Acute (2) Follicular lymphoma: Status: Acute (3) Anemia: Status: Acute (4) Encephalopathy: Status: Acute (5) Pancytopenia: Status: Acute Additional A&P Information Pancytopenia most likely secondary to myelosuppression from chemotherapy Severe neutropenia Chemotherapy session was on last Sunday, More than 7 days of neutropenia, puts him at high risk for sepsis, septic shock and encephalopathy, will admit to ICU Vancomycin and Zosyn for now with judicious use of fluids, previous culture and sensitivity from catheter tip showed Pseudomonas, Morgagni and enterococcus, no bacteremia If she stays febrile after 48 hours on broad-spectrum antibiotics my threshold to start antifungal will stay low, will check LDH, chest x-ray does not reveal acute pulmonary pathology, PICC line at SVC tip Check procalcitonin, blood cultures, urine culture Follow-up with CT chest abdomen pelvis without contrast Review of records revealed that he developed severe local pain and myalgia after getting Neulasta last time, I would follow-up with Dr. Bob before giving growth stimulating factors at this point Acute on chronic macrocytic anemia secondary to myelosuppression We will give 2 units of irradiated leuko-reduced PRBC, check B12 Thrombocytopenia without active bleed, hold on transfusing platelets at this point Avoid DVT prophylaxis with anticoagulation, Recent Port-A-Cath removal secondary to infection without bacteremia Most likely source of infection is Port-A-Cath site which is showing purulent drainage Suspicion for bacteremia is very high I will get echo in the morning to rule out infective endocarditis as well Bilateral leg swelling Right leg swelling greater than left, will get bilateral leg Dopplers He will not be a good candidate to be on anticoagulation, for his history of A. fib he is on high-dose aspirin which I would hold at this point because of severe anemia Neutropenic Full code DVT prophylaxis: SCDs Attestations Medical Necessity Statement*: Anticipating stay in the hospital to cross more than 2 midnights, currently at risk of septic shock and septic encephalopathy, being treated for neutropenic fever Time Spent in Patient Care: 50 Coding Level of Care Code Acute [employer] for Chg Fwd Diagnoses Neutropenic fever D70.9; R50.81 Follicular lymphoma C82.90 Anemia D64.9 Encephalopathy G93.40 Pancytopenia D61.818
[2020-01-07 23:33] LABS: ABG PCO2 40.7 mmHg (35-45); ABG PH Result 7.45 (7.35-7.45); Arterial Blood Gas Hematocrit 28.6 % (42-52); Base Excess ABG 4.2 mmol/L (-2.0-2.0); Blood Gas Allen Test Pos; Blood Gas Sample Site Radial, right; Blood Gas Sample Type Arterial; HCO3 ABG 28.5 mmol/L (22-26); PO2 ABG 64.3 mmHg (80.0-100.0)
[2020-01-07] MEDS: ondansetron 2 mg/ML SDV 2 mL 4 MG IVP (23:36)
[2020-01-07] MEDS: piperacillin-tazobactam 3.375 GM in sodium chloride 0.9% (plus) 50 ML IV (23:37)
--- NOTE | 2020-01-07 23:58 | CTR_ITS ---
PROCEDURE INFORMATION: Exam: CT Chest Without Contrast Exam date and time: 01/08/2020 12:23 AM Age: 74 years old Clinical indication: Abdominal pain; Generalized; Chest pain; Prior surgery; Surgery type: Cabg; Patient HX: HX neck CA, on chemo; Additional info: Neutropenic TECHNIQUE: Imaging protocol: Computed tomography of the chest without contrast. Total DLP: 2667.48 mGy-cm Radiation optimization: All CT scans at this facility use at least one of these dose optimization techniques: automated exposure control; mA and/or kV adjustment per patient size (includes targeted exams where dose is matched to clinical indication); or iterative reconstruction. COMPARISON: No relevant prior studies available. FINDINGS: Tubes, catheters and devices: Tip of the left PICC line at the cavoatrial junction. Lungs: Calcified granuloma in the periphery of the right upper lobe, most apparent on sagittal and coronal images. Minimal stranding in the left lung base. No consolidation. Pleural space: Unremarkable. No pneumothorax. No pleural effusion. Heart: No cardiomegaly or pericardial effusion. Anterior pericardial electrode. Mediastinum: Small hiatal hernia. Aorta: Atherosclerosis. No aortic aneurysm. Lymph nodes: Calcified nodes in the right hilum and mediastinum. No enlarged noncalcified nodes. Bones/joints: Median sternotomy. Old compression fractures. Slight degeneration of several discs. Increased kyphosis. Prominent degeneration of the right glenohumeral joint; probable loose bodies in this joint. Soft tissues: Surgical clips in the right neck. IMPRESSION: 1. Tip of the left PICC line at the cavoatrial junction. 2. No consolidation in the lungs. Small hiatal hernia. Other findings detailed above. PROCEDURE INFORMATION: Exam: CT Abdomen And Pelvis Without Contrast Exam date and time: 01/08/2020 12:23 AM Age: 74 years old Clinical indication: Abdominal pain; Generalized; Chest pain; Prior surgery; Surgery type: Cabg; Patient HX: HX neck CA, on chemo; Additional info: Neutropenic TECHNIQUE: Imaging protocol: Computed tomography of the abdomen and pelvis without contrast. Total DLP: 2667.48 mGy-cm Radiation optimization: All CT scans at this facility use at least one of these dose optimization techniques: automated exposure control; mA and/or kV adjustment per patient size (includes targeted exams where dose is matched to clinical indication); or iterative reconstruction. COMPARISON: No relevant prior studies available. FINDINGS: Limitations: Streak artifacts from the patient's arms. Liver: No suggestion of liver disease. Gallbladder and bile ducts: Calcified stones in the dependent gallbladder. No biliary ductal dilatation. Pancreas: Fatty infiltration of the pancreas. No apparent ductal dilatation. Spleen: No splenomegaly. Adrenals: No apparent adrenal mass. Kidneys and ureters: No hydronephrosis or apparent renal mass. Stomach and bowel: Nondistended stomach. No obstruction. Mild sigmoid diverticulosis. Appendix: No appendicitis. Intraperitoneal space: No free air. No significant fluid collection. Vasculature: Atherosclerosis. No aortic aneurysm. Lymph nodes: No enlarged nodes. Bladder: Unremarkable as visualized. Reproductive: Unremarkable as visualized. Bones/joints: Old compression fractures. Degeneration of several discs. Minimal spondylolisthesis at L4-L5. Soft tissues: End of the pericardial electrode in the left upper anterior abdominal wall. Mild right parasagittal subxiphoid ventral hernia containing fat. CT/CT chest abd pel wo con IMPRESSION: No acute process. Cholelithiasis. Other findings detailed above. Radiation Dose CTDIVOL = (mGy): DLP = 2667.48~2667.48 (mGy-cm)
[2020-01-08] VITALS (99 sets, daily range): BP systolic 96–203; BP diastolic 38–123; PULSE 59–88; RESP 12–30; TEMP 36.7–37.3; O2SAT 93–100
--- NOTE | 2020-01-08 00:10 | USCV_ITS ---
MicroJulius mata Age: 74 Gender: M : 1945 Exam Date: 01/08/2020 00:56 Ordering Phys: Rosi Kowalski DO Technologist: Carrillo Foy Exam Location: [facility] – [place] Indication: BILAT EDEMA HISTORY: Lower extremity pain. PROCEDURES: The venous duplex Doppler examination of both lower extremities was performed in the standard fashion. The following venous structures were evaluated: common femoral vein, profunda vein, proximal portion of the greater saphenous vein, superficial femoral vein, and the popliteal vein. In addition, the posterior tibial and peroneal trunk were evaluated. Serial compression, augmentation maneuvers, and spectral Doppler flow evaluation were performed. FINDINGS: Normal 2-D Doppler and augmentation and compressibility throughout the lower extremity venous structures. Additional imaging through the proximal calf veins also reveals no thrombus. Limited evaluation of the greater saphenous vein is patent with no thrombus.. CONCLUSIONS No evidence of right lower extremity DVT. No evidence of left lower extremity DVT. Rigoberto Paz MD (Electronically Signed) Final Date: 08 January 2020 16:03 S
[2020-01-08 00:27] LABS: Influenza A by IFA Negative (Negative); Influenza B by IFA Negative (Negative)
[2020-01-08 00:44] LABS: Add RBC Morph Yes; Total Cells Counted 25 (0-100)
[2020-01-08 00:45] LABS: Hypochromasia 1+; Platelet Estimate Decreased (Normal); Polychromasia Trace
[2020-01-08 00:46] LABS: RBC Morph Comp No
[2020-01-08 00:48] LABS: Procalcitonin 0.33 ng/mL (0-0.5)
[2020-01-08 00:56] LABS: Bilirubin Urine Neg (NEGATIVE); Blood Urine Neg (Negative); Glucose Urine UA 4+ (Normal); Ketones Urine Negative (Negative); Leukocyte Esterase Urine Negative (Negative); Nitrate Urine Negative (Negative); Protein Urine Neg (Negative); Specific Gravity, Urine 1.005 (1.005-1.030); Urine Appearance Clear (CLEAR); Urine Color Yellow (Yellow); Urobilinogen Urine Norm (Negative); pH Urine 7 (5-7)
--- NOTE | 2020-01-08 00:56 | PC.NURSE ---
Nurse at beside, assisted patient from wheelchair to bed for ultrasound. Hooked patient up to monitoring specialist and changed him into a gown. Blood glucose is 141, both nurse and doctor were notified.
[2020-01-08 00:57] LABS: Glucose Point of Care 141 mg/dL (70-110)
[2020-01-08 00:57] LABS: Add Urine Culture? No; RBC Urine 0-4 /hpf (0-2)
[2020-01-08 01:22] LABS: C Reactive Protein 55.7 mg/L (0.0-4.9)
[2020-01-08 01:26] LABS: Troponin 5 2HR 91.56 ng/mL (0-15); Troponin 5 2HR Delta 5.56 ABS# (0-10)
[2020-01-08] MEDS: amiodarone 200 mg Tablet 100 MG PO (02:06)
[2020-01-08 02:56] LABS: Vitamin B12 1496 pg/mL (232-1245)
[2020-01-08 03:12] LABS: Lactate Dehydrogenase 282 U/L (135-225)
[2020-01-08] MEDS: sodium chloride 0.9% 100 ML ×2 (03:34→06:12)
--- NOTE | 2020-01-08 03:50 | PC.NURSE ---
Verbal consent for blood transfusion given by , Katie Blake. second nurse verify with done by MELISSA Edmondson.
--- NOTE | 2020-01-08 04:33 | ECG_ITS ---
Measurements Intervals [place] Rate: 77 P: 102 WI: 194 QRS: 27 QRSD: 90 T: 85 QT: 388 QTc: 440 SINUS RHYTHM NONSPECIFIC T-WAVE ABNORMALITY Compared to ECG 12/23/2019 06:56:28 T-wave abnormality now present Electronically Signed On 01-08-2020 15:31:19 CDT by Alexis Mayfield M.D. [email or web address]
[2020-01-08] MEDS: hyDRALAzine 20 mg/mL INJ 1 mL 10 MG IVP (05:49)
[2020-01-08] MEDS: pantoprazole DR 40 mg Tablet PO (05:55)
[2020-01-08] MEDS: piperacillin-tazobactam 3.375 GM in sodium chloride 0.9% (plus) 50 ML IV ×3 (06:12→22:21)
[2020-01-08 06:15] LABS: Lymphocytes 68 %; Segmented Neutrophils 8 %
[2020-01-08] MEDS: FUROsemide 10 mg/mL SDV 2mL 20 MG IVP (06:39)
[2020-01-08] MEDS: hyDRALAzine 50 mg Tablet 100 MG PO ×3 (07:53→20:37)
[2020-01-08] MEDS: levothyroxine 150 mcg Tablet PO (07:53)
--- NOTE | 2020-01-08 08:02 | P.PN_ITS ---
Subjective Subjective: Interval history: History and physical reviewed. Julius denies any confusion currently. States he feels tired. He is not that hungry but drank a small amount and ate a small amount. Reports he hurts a little bit all over. Medications: Reviewed: Yes Vitals/I&O/Wt Last Vital Signs Temp 98.8 F 01/08/20 06:06 Pulse 73 01/08/20 06:06 Resp 23 H 01/08/20 06:06 BP 121/38 01/08/20 06:06 Pulse Ox 100 01/08/20 06:06 01/07/20 01/08/20 01/08/20 22:59 06:59 14:59 Intake Total 1060 / 1060 120 / 120 Output Total 325 / 325 700 / 700 Balance 735 / 735 -580 / -580 Weight last 48 hrs Weight 117.934 kg Physical Exam Narrative: EXAM NARRATIVE: General exam no apparent distress Oropharynx demonstrates a few aphthous ulcers noted inside the right lower lip Cardiovascular regular rate and rhythm without murmur Chest demonstrate right chest site with packing that was removed from Port-A-Cath site. Slight greenish drainage and slight surrounding erythema Lungs clear Abdomen is soft with positive bowel sounds Extremities no cyanosis clubbing Data : 01/07/20 22:40 01/07/20 22:40 Micro: Microbiology 01/07/20 22:45 Blood Culture - Preliminary Blood SPECIMEN COLLECTED 01/07/20 22:40 Blood Culture - Preliminary Blood SPECIMEN COLLECTED A&P Assessment and plan (1) Neutropenic fever: Placed on Zosyn, vancomycin. Secondary to his tenuous renal function will change to vancomycin to linezolid He did receive Neulasta with his last chemotherapy Status: Acute (2) Follicular lymphoma: Most recent PET scan demonstrates complete response Status: Acute (3) Anemia: Receiving 2 units of packed red blood cells. Repeat hemoglobin around noon Status: Acute (4) Encephalopathy: Does not appear to confused currently. Status: Acute (5) Pancytopenia: Monitor platelets closely Status: Acute Additional A&P Information Stomatitis. Start acyclovir p.o. we will also start Magic mouthwash. Culture of port tip demonstrated Pseudomonas, Morganella, enterococcus. Placed on Zosyn, linezolid as above. Continue packing Type 2 diabetes. Sliding scale insulin History of leg swelling. Await venous duplex Atrial fibrillation. He is on aspirin for this. No anticoagulation. Aspirin is being held secondary to thrombocytopenia. Full code SCDs for DVT prophylaxis Attestations Medical Necessity Statement*: Needs continued hospital stay for IV antibiotics secondary to neutropenic fever Coding Level of Care Code Acute [employer] Dispatcher for Chg Fwd Diagnoses Neutropenic fever D70.9; R50.81 Follicular lymphoma C82.90 Anemia D64.9 Encephalopathy G93.40 Pancytopenia D61.818
[2020-01-08 08:41] LABS: Glucose Point of Care 199 mg/dL (70-110)
[2020-01-08 08:41] LABS: Glucose Point of Care 182 mg/dL (70-110)
[2020-01-08 11:36] LABS: Glucose Point of Care 255 mg/dL (70-110)
[2020-01-08] MEDS: linezolid premix 600 MG/300 ML PREMIX 300 MG IV ×2 (11:40→20:37)
[2020-01-08] MEDS: lidocaine 2% viscous 1.667 ML, diphenhydrAMINE oral liq 4.165 MG, aluminum-mag hydrox-s... MUCOUS MEM (11:49)
[2020-01-08] MEDS: acyclovir 400 mg Tablet PO ×3 (11:55→20:37)
[2020-01-08 12:33] LABS: Basophils % 1.8 %; Eosinophils % 3.6 %; Hematocrit 30.3 % (42.0-52.0); Hemoglobin 9.8 g/dL (11.7-16.6); Lymphocytes # 0.2 10^3/uL (0.8-4.8); Lymphocytes % 41.8 %; Mean Corpuscular HGB Conc 32.3 g/dL (30.0-36.0); Mean Corpuscular Hemoglobin 31.2 pg (28.0-34.0); Mean Corpuscular Volume 96.5 fL (80-94); Mean Platelet Volume 11.9 fL (7.4-10.4); Monocytes # 0.2 10^3/uL (0.2-0.9); Monocytes % 32.7 %; Neutrophils % 18.3 %; Nucleated Red Blood Cells % 0 %; Red Blood Count 3.14 10^6/uL (4.1-5.3); Red Cell Distribution Width 15.8 % (12.1-15.1)
[2020-01-08 12:55] LABS: Anion Gap 15.8 (5-19); Blood Urea Nitrogen 40 mg/dL (8-23); Calcium 9.4 mg/dL (8.5-10.5); Carbon Dioxide 27 mmol/L (22-29); Chloride 99 mmol/L (98-107); Glucose 250 mg/dL (65-115); Osmolality Calculated 290 mOsm/kg (285-295); Potassium 4.8 mmol/L (3.5-5.1); Sodium 137 mmol/L (136-145)
[2020-01-08 13:10] LABS: Neutrophils # 0.1 10^3/uL (1.8-7.7); Platelet Count 27 10^3/cmm (130-400); White Blood Count 0.6 10^3/uL (4.0-10.0)
[2020-01-08 13:12] LABS: Slide Review Slide Review Perform
[2020-01-08 16:53] LABS: Glucose Point of Care 183 mg/dL (70-110)
[2020-01-08 20:45] LABS: Glucose Point of Care 232 mg/dL (70-110)
[2020-01-08] MEDS: HYDROcodone-acetaminophen 5-325 mg Tablet 1 TAB PO (20:46)
[2020-01-08] MEDS: trazodone 50 mg Tablet 25 MG PO (23:15)
[2020-01-09] VITALS (27 sets, daily range): BP systolic 115–180; BP diastolic 46–84; PULSE 60–81; RESP 12–30; TEMP 36.6–37.2; O2SAT 92–100
[2020-01-09] MEDS: amiodarone 200 mg Tablet 100 MG PO (01:01)
[2020-01-09] MEDS: lidocaine 2% viscous 1.667 ML, diphenhydrAMINE oral liq 4.165 MG, aluminum-mag hydrox-s... MUCOUS MEM (01:03)
[2020-01-09] MEDS: HYDROcodone-acetaminophen 5-325 mg Tablet 1 TAB PO (01:12)
[2020-01-09 04:34] LABS: Basophils % 2.2 %; Eosinophils % 3.3 %; Hematocrit 28.9 % (42.0-52.0); Hemoglobin 9.4 g/dL (11.7-16.6); Lymphocytes # 0.2 10^3/uL (0.8-4.8); Mean Corpuscular HGB Conc 32.5 g/dL (30.0-36.0); Mean Corpuscular Volume 98.3 fL (80-94); Mean Platelet Volume 11.8 fL (7.4-10.4); Monocytes # 0.3 10^3/uL (0.2-0.9); Monocytes % 30.4 %; Neutrophils % 36.9 %; Nucleated Red Blood Cells % 0 %; Platelet Count 29 10^3/cmm (130-400); Red Blood Count 2.94 10^6/uL (4.1-5.3); Red Cell Distribution Width 16.1 % (12.1-15.1)
[2020-01-09 04:52] LABS: Alanine Aminotransferase 19 U/L (0-41); Albumin Level 3.4 g/dL (3.5-5.2); Alkaline Phosphatase 56 IU/L (40-130); Anion Gap 14.3 (5-19); Aspartate Amino Transferase 17 U/L (0-40); Blood Urea Nitrogen 30 mg/dL (8-23); Carbon Dioxide 28 mmol/L (22-29); Chloride 98 mmol/L (98-107); Globulin 2.6 g/dL (1.3-4.6); Glucose 157 mg/dL (65-115); Osmolality Calculated 282 mOsm/kg (285-295); Potassium 4.3 mmol/L (3.5-5.1); Sodium 136 mmol/L (136-145); Total Bilirubin 0.6 mg/dL (0.15-1.2)
[2020-01-09] MEDS: pantoprazole DR 40 mg Tablet PO (05:44)
[2020-01-09] MEDS: piperacillin-tazobactam 3.375 GM in sodium chloride 0.9% (plus) 50 ML IV ×3 (05:44→23:27)
[2020-01-09 06:20] LABS: Neutrophils # 0.3 10^3/uL (1.8-7.7); Slide Review Slide Review Perform; White Blood Count 0.9 10^3/uL (4.0-10.0)
[2020-01-09 07:32] LABS: Glucose Point of Care 142 mg/dL (70-110)
--- NOTE | 2020-01-09 09:19 | P.PN_ITS ---
Subjective Subjective: Interval history: Patient reports feeling better this morning. Denies shortness of breath or chest pain. Denies abdominal pain. His neutrophil count improved and up to 0.9 this morning. His platelets appear to plateau, 29 this morning. Hemoglobin is stable. Patient reports that he was taking Augmentin for his right chest drainage post Port-A-Cath removal and it improved but his drainage recurred shortly after antibiotic was stopped. His cultures grew Pseudomonas, Morganella and enterococcus. He ate his breakfast this morning. His vitals are stable. He recently had chemotherapy for follicular lymphoma and was given Neulasta after. He is currently on linezolid and Zosyn which covers all 3 pathogens. Venous duplex shows no evidence of DVT in both lower extremities. Medications: Reviewed: Yes Vitals/I&O/Wt Last Vital Signs Temp 98.3 F 01/09/20 05:30 Pulse 70 01/09/20 08:15 Resp 19 H 01/09/20 07:30 BP 123/61 01/09/20 07:30 Pulse Ox 99 01/09/20 08:15 01/08/20 01/09/20 01/09/20 22:59 06:59 14:59 Intake Total 1120 / 1410 530 / 1940 200 / 200 Output Total 600 / 1900 400 / 2300 100 / 100 Balance 520 / -490 130 / -360 100 / 100 Weight last 48 hrs Weight 117.934 kg Physical Exam Const: COMMON NORMALS: no apparent distress and oriented x3 Resp: COMMON NORMALS: normal respiratory effort and clear to auscultation bilaterally AUSCULTATION: clear to auscultation bilaterally Cardio: COMMON NORMALS: regular rate, regular rhythm and S2 normal heart sound RATE: regular rate RHYTHM: regular rhythm HEART SOUNDS: S2 normal OTHER: No lower extremity edema GI: COMMON NORMALS: normal to inspection, nondistended, normoactive bowel sounds, soft to palpation and non-tender PALPATION: Yes soft Neuro: COMMON NORMALS: oriented x3 and no focal motor deficits Skin: OTHER: Right upper chest wound is covered and shows evidence of dischar ge. Data : 01/09/20 04:05 01/09/20 04:05 Micro: Microbiology 01/07/20 22:45 Blood Culture - Preliminary Blood NEGATIVE TO DATE 01/07/20 22:40 Blood Culture - Preliminary Blood NEGATIVE TO DATE A&P Assessment and plan (1) Neutropenic fever: Placed on Zosyn, vancomycin. Secondary to his tenuous renal function will change to vancomycin to linezolid He did receive Neulasta with his last chemotherapy Status: Acute (2) Follicular lymphoma: Most recent PET scan demonstrates complete response Status: Acute (3) Anemia: Receiving 2 units of packed red blood cells. Repeat hemoglobin around noon Status: Acute (4) Encephalopathy: Does not appear to confused currently. Status: Acute (5) Pancytopenia: Monitor platelets closely Status: Acute Additional A&P Information Stomatitis. Start acyclovir p.o. we will also start Magic mouthwash. Culture of port tip demonstrated Pseudomonas, Morganella, enterococcus. Placed on Zosyn, linezolid as above. Continue packing Type 2 diabetes. Sliding scale insulin History of leg swelling. Await venous duplex Atrial fibrillation. He is on aspirin for this. No anticoagulation. Aspirin is being held secondary to thrombocytopenia. PLAN: Continue current antibiotics and transfer patient to [facility]. Once neutropenia resolves consider transitioning to Levaquin and discharge patient with outpatient follow-up with Dr. Bob. Will request right chest soft tissue ultrasound to make sure there is no underlying abscess. Physical therapy to avoid deconditioning. Discussed with Ms. Blake patient's over the phone and updated. Full code SCDs for DVT prophylaxis Attestations Medical Necessity Statement*: Patient with neutropenic fever requires close inpatient monitoring and treatment Coding Level of Care Code Acute Facilities Director for Chg Fwd Diagnoses Neutropenic fever D70.9; R50.81 Follicular lymphoma C82.90 Anemia D64.9 Encephalopathy G93.40 Pancytopenia D61.818
[2020-01-09] MEDS: linezolid premix 600 MG/300 ML PREMIX 300 MG IV ×2 (09:24→22:09)
[2020-01-09] MEDS: acyclovir 400 mg Tablet PO ×3 (09:25→22:05)
[2020-01-09] MEDS: hyDRALAzine 50 mg Tablet 100 MG PO ×3 (09:25→22:04)
[2020-01-09] MEDS: levothyroxine 150 mcg Tablet PO (09:25)
--- NOTE | 2020-01-09 09:34 | US_ITS ---
WS: [id number] INDICATION: Evaluate for abscess TECHNIQUE: Ultrasound soft tissue FINDINGS: Ultrasound soft tissue area of prior Port-A-Cath. No evidence of drainable abscess or fluid collection. Subcutaneous edema. US/US soft tissue/extremity 22300 IMPRESSION: No evidence of drainable abscess or fluid collection.
[2020-01-09 10:48] LABS: Glucose Point of Care 241 mg/dL (70-110)
[2020-01-09 16:45] LABS: Glucose Point of Care 187 mg/dL (70-110)
[2020-01-09] MEDS: nystatin 100,000 unit/mL UDC 5 mL 500000 UNIT PO ×2 (17:44→22:06)
[2020-01-09 21:46] LABS: Glucose Point of Care 143 mg/dL (70-110)
[2020-01-10 00:03] VITALS: BP 125/65; PULSE 80; RESP 18; TEMP 36.7; O2SAT 94
[2020-01-10] MEDS: amiodarone 200 mg Tablet 100 MG PO (02:45)
[2020-01-10 04:00] VITALS: BP 128/57; PULSE 87; RESP 18; TEMP 36.4; O2SAT 93
[2020-01-10 05:06] LABS: Glucose Point of Care 181 mg/dL (70-110)
[2020-01-10] MEDS: pantoprazole DR 40 mg Tablet PO (06:09)
[2020-01-10] MEDS: piperacillin-tazobactam 3.375 GM in sodium chloride 0.9% (plus) 50 ML IV (06:09)
[2020-01-10 07:56] VITALS: PULSE 73; O2SAT 98
[2020-01-10 08:00] VITALS: BP 116/54; PULSE 81; RESP 18; TEMP 37.1; O2SAT 96
[2020-01-10 08:45] LABS: Basophils # 0.1 10^3/uL (0.0-0.1); Eosinophils % 1.3 %; Hematocrit 30.1 % (42.0-52.0); Hemoglobin 9.5 g/dL (11.7-16.6); Lymphocytes # 0.4 10^3/uL (0.8-4.8); Lymphocytes % 13.6 %; Mean Corpuscular HGB Conc 31.6 g/dL (30.0-36.0); Mean Corpuscular Hemoglobin 31.3 pg (28.0-34.0); Mean Platelet Volume 13.4 fL (7.4-10.4); Monocytes # 0.6 10^3/uL (0.2-0.9); Monocytes % 20.2 %; Neutrophils # 1.8 10^3/uL (1.8-7.7); Neutrophils % 58.9 %; Nucleated Red Blood Cells % 0.7 %; Platelet Count 39 10^3/cmm (130-400); Red Blood Count 3.04 10^6/uL (4.1-5.3); Red Cell Distribution Width 15.5 % (12.1-15.1)
[2020-01-10] MEDS: linezolid premix 600 MG/300 ML PREMIX 300 MG IV (08:52)
[2020-01-10] MEDS: levothyroxine 150 mcg Tablet PO (09:03)
[2020-01-10] MEDS: acyclovir 400 mg Tablet PO (09:03)
[2020-01-10] MEDS: nystatin 100,000 unit/mL UDC 5 mL 500000 UNIT PO (09:03)
[2020-01-10 09:11] LABS: Alanine Aminotransferase 21 U/L (0-41); Albumin Level 3.6 g/dL (3.5-5.2); Alkaline Phosphatase 65 IU/L (40-130); Anion Gap 16.8 (5-19); Aspartate Amino Transferase 20 U/L (0-40); Blood Urea Nitrogen 30 mg/dL (8-23); Calcium 9.3 mg/dL (8.5-10.5); Carbon Dioxide 25 mmol/L (22-29); Chloride 93 mmol/L (98-107); Globulin 2.6 g/dL (1.3-4.6); Glucose 272 mg/dL (65-115); Osmolality Calculated 277 mOsm/kg (285-295); Potassium 4.8 mmol/L (3.5-5.1); Sodium 130 mmol/L (136-145); Total Bilirubin 0.6 mg/dL (0.15-1.2); Total Protein 6.2 g/dL (6.6-8.7)
--- NOTE | 2020-01-10 10:12 | P.DS_ITS ---
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 He was started on broad-spectrum antibiotics. Patient recently had drainage recurred after initial treatment with antibiotic for Port-A-Cath infection which was removed. He grew 3 bacteria pseudomonas aeruginosa, Enterococcus faecalis and Morganella morganii all susceptible to Levaquin therefore I will continue Levaquin for 1 more week. This morning patient denies any complaints including shortness of breath or chest pain. Denies abdominal pain or problems with bowel movement. He wants to go home. His blood counts nicely recovered. He is hemodynamically stable and reports good appetite although does not like food served in hospital and he thinks it he will eat better at home. He is saturating 96% on room air this morning. I will request outpatient follow-up with Dr. Bob early as possible. Outpatient wound care clinic follow-up could be considered if his infection does not improve. Ultrasound of soft tissue was performed and it showed no evidence of abscess or any fluid collection at the site of previous Port-A-Cath placement. He is afebrile for the last couple days. Patient's platelets are improving and is up to 39 this morning. Due to high risk of bleeding I will hold aspirin for now and request lab work performed in several days prior to Dr. Bob's evaluation. We will let Dr. Bob to initiate aspirin if felt safe. Physical Exam Const: COMMON NORMALS: no apparent distress and oriented x3 Resp: COMMON NORMALS: normal respiratory effort and clear to auscultation bilaterally AUSCULTATION: clear to auscultation bilaterally Cardio: COMMON NORMALS: regular rate, regular rhythm and S2 normal heart sound RATE: regular rate RHYTHM: regular rhythm HEART SOUNDS: S2 normal OTHER: No lower extremity edema GI: COMMON NORMALS: normal to inspection, nondistended, normoactive bowel sounds, soft to palpation and non-tender PALPATION: Yes soft Neuro: COMMON NORMALS: oriented x3 and no focal motor deficits Discharge Data Data Completed and Pending: Completed Studies During Hospitalization Category Date Time Status CT chest abd pel wo con Urgent Cat Scan 01/07/20 23:[address] head wo con* 7 0450 Urgent Cat Scan 01/07/20 22:33 Completed XR chest 1V lauro ble [id number] Stat Exams 01/07/20 22:32 [place] [id number] Urgent Ultrasound 01/08/20 00:10 Completed US soft tissue/ex tremity 48621 Rout ine Ultrasound 01/09/20 09:34 Completed Pending at discharge Category Date Time Status Blood Culture Sta t Lab 01/07/20 22:45 Results Complete Blood Co unt w/Auto AM LABS Lab 01/11/20 04:00 Ordered Complete Blood Co unt w/Auto AM LABS Lab 01/12/20 04:00 Ordered Complete Blood Co unt w/Auto AM LABS Lab 01/13/20 04:00 Ordered Comprehensive Met abolic Panel AM LA BS Lab 01/11/20 04:00 Ordered Comprehensive Met abolic Panel AM LA BS Lab 01/12/20 04:00 Ordered Comprehensive Met abolic Panel AM LA BS Lab 01/13/20 04:00 Ordered Labs from last 24 hours 01/10/20 01/10/20 01/10/20 08:38 08:38 05:01 WBC 3.0 L RBC 3.04 L Hgb 9.5 L Hct 30.1 L MCV 99.0 H MCH 31.3 MCHC 31.6 RDW 15.5 H Plt Count 39 L MPV 13.4 H Neut % (Auto) 58.9 Lymph % (Auto) 13.6 [place] % (Auto) 20.2 Eos % (Auto) 1.3 Baso % (Auto) 2.0 Neut # (Auto) 1.8 Lymph # (Auto) 0.4 L [place] # (Auto) 0.6 Eos # (Auto) 0.0 Baso # (Auto) 0.1 Nucleated RBC % (a uto) 0.7 Nucleated RBCs # 0.0 Sodium 130 L Potassium 4.8 Chloride 93 L Carbon Dioxide 25 Anion Gap 16.8 BUN 30 H Creatinine 2.1 H Glucose 272 H POC Glucose 181 Calculated Osmolal ity 277 L Calcium 9.3 Total Bilirubin 0.6 AST 20 ALT 21 Alkaline Phosphata se 65 Total Protein 6.2 L Albumin 3.6 Globulin 2.6 01/09/20 01/09/20 01/09/20 21:34 16:42 10:39 WBC RBC Hgb Hct MCV MCH MCHC RDW Plt Count MPV Neut % (Auto) Lymph % (Auto) [place] % (Auto) Eos % (Auto) Baso % (Auto) Neut # (Auto) Lymph # (Auto) [place] # (Auto) Eos # (Auto) Baso # (Auto) Nucleated RBC % (a uto) Nucleated RBCs # Sodium Potassium Chloride Carbon Dioxide Anion Gap BUN Creatinine Glucose POC Glucose 143 187 241 Calculated Osmolal ity Calcium Total Bilirubin AST ALT Alkaline Phosphata se Total Protein Albumin Globulin Vitals: Last Vital Signs Temp 98.7 F 01/10/20 08:00 Pulse 81 01/10/20 08:00 Resp 18 01/10/20 08:00 BP 116/54 01/10/20 08:00 Pulse Ox 96 01/10/20 08:00 Discharge Plan Discharge Patient Disposition: Home, Self-Care Condition: Stable Prescriptions: New nystatin 100,000 unit/mL Suspension 500,000 unit PO QID Qty: 100 RF: 0 levofloxacin 750 mg Tablet 750 mg PO Q48H Qty: 4 RF: 0 acyclovir 400 mg Tablet 400 mg PO TID Qty: 21 RF: 0 Continued olmesartan [Benicar] 40 mg tablet 40 mg PO DAILY RF: 0 Levemir FlexTouch U-100 Insuln 100 unit/mL (3 mL) insulin pen 32 unit SUBCUT BEDTIME RF: 0 pantoprazole 40 mg tablet,delayed release (DR/EC) 40 mg PO QAM RF: 0 Novolin 70/30 U-100 Insulin 100 unit/mL (70-30) suspension 25 unit SUBCUT QAM RF: 0 pregabalin [Lyrica] 75 mg capsule 75 mg PO BID RF: 0 levothyroxine 150 mcg capsule 150 mcg PO DAILY RF: 0 amiodarone 200 mg tablet 100 mg PO Q24H RF: 0 ergocalciferol (vitamin D2) 50,000 unit capsule 50,000 unit PO .weekly RF: 0 promethazine 25 mg tablet 25 mg PO TID PRN (Reason: Nausea) RF: 0 lorazepam 0.5 mg tablet 0.5 mg PO TID PRN (Reason: Nausea) RF: 0 simvastatin 40 mg tablet 40 mg PO DAILY Qty: 90 RF: 3 hydralazine 100 mg tablet 100 mg PO TID Qty: 270 RF: 3 lactulose 10 gram/15 mL Solution 15 ml PO DAILY PRN (Reason: Constipation) RF: 0 hydrocodone-acetaminophen 5-325 mg Tablet 1 tab PO Q4H PRN (Reason: Pain) RF: 0 Discontinued aspirin 325 mg tablet 325 mg PO DAILY RF: 0 Hold Instructions: Resume on 12/26/19. cephalexin 500 mg 500 mg PO QID RF: 0 Discharge Orders: Discharge Order (Routine); Ordered 01/10/20 Ordered By: Bennie August Other Ambulatory Orders: Complete Blood Count w/Auto (Routine) Timeframe: 20200112 Location: Determined by Patient Ordered By: Bennie August Comprehensive Metabolic Panel (Routine) Timeframe: 20200112 Facility: [facility] - Location: Lab - Main Lab Ordered By: Bennie August Referrals: Eliud Bob MD [Hospitalist] - 1-3 days Ani Rosenthal NP [Primary Care Provider] - 4-7 days Discharge Diet: Advance as tolerated Discharge Activity: Increase activity as tolerated Activity Restrictions/Additional Instructions: Please call your doctor or present to emergency department if your condition worsens or you develop diarrhea, lightheadedness, fatigue or see blood in your stool or black stool. Please continue twice daily wound dressing changes and keep area clean and let Dr. Bob her primary care physician to know if wound discharge worsens. Discharge Attestations Time Spent in Discharge Care*: greater than 30 min Quality Metrics Clinical Quality Measures During this hospital stay, did patient experience: None Coding Level of Care Code Acute Musical Instrument Maker for Chg Fwd Diagnoses Neutropenic fever D70.9; R50.81 Follicular lymphoma C82.90 Anemia D64.9 Encephalopathy G93.40 Pancytopenia D61.818
[2020-01-10 10:28] VITALS: BP 116/54; PULSE 81; RESP 18; TEMP 37.1; O2SAT 96
[2020-01-10] MEDS: levoFLOXacin 750 mg Tablet PO (11:17)
--- NOTE | 2020-01-10 11:30 | PC.NURSE ---
Patient discharged at this time. Reviewed discharge instructions including future appointments. Patient was given orders for labs. PICC Line in left upper arm was flushed with normal saline prior to patient leaving. Patient wheel chaired to private car.
[2020-01-10 11:51] VITALS: BP 116/54; PULSE 81; RESP 18; TEMP 37.1; O2SAT 96
== END 2020-01-10 11:45 | disposition home or self-care (01) | DRG 809 ==
LOC: ER 22:45 → ICU 01-08 01:13 → MEDSURG 01-09 10:21
PROVIDERS: Internal Medicine; Admitting Provider Internal Medicine; Emergency Provider Emergency Medicine; Family Provider Nurse Practitioner Family; PCP Nurse Practitioner Family; Visit Provider Internal Medicine
DX: D61.818 Other pancytopenia (principal); C82.90 Follicular lymphoma, unspecified, unspecified site; G93.40 Encephalopathy, unspecified; D61.810 Antineoplastic chemotherapy induced pancytopenia; R50.81 Fever presenting with conditions classified elsewhere; D64.81 Anemia due to antineoplastic chemotherapy; Z79.899 Other long term (current) drug therapy; Z79.82 Long term (current) use of aspirin; I25.10 Atherosclerotic heart disease of native coronary artery without angina pectoris; I48.91 Unspecified atrial fibrillation; E78.5 Hyperlipidemia, unspecified; E03.9 Hypothyroidism, unspecified; K21.9 Gastro-esophageal reflux disease without esophagitis; I35.0 Nonrheumatic aortic (valve) stenosis; I12.9 Hypertensive chronic kidney disease with stage 1 through stage 4 chronic kidney disease, or unspecified chronic kidney disease; N18.9 Chronic kidney disease, unspecified; Z95.1 Presence of aortocoronary bypass graft; Z87.891 Personal history of nicotine dependence
CPT/HCPCS: 12345; 36415; 36416; 36430; 36592; 36600; 70450; 71045; 71250; 74176; 76882; 80048; 80053; 81001; 82009; 82140; 82607; 82803; 82962; 83605; 83615; 83690; 83735; 84145; 84484; 85007; 85025; 86140; 86850; 86900; 86920; 87040; 87804; 93005; 93970; 96372; 96375; 97110; 97161; 97530; 99283; A4216; J0131; J0360; J1815; J1940; J2020; J2405; J2543; J3370; J7040; J8499; P9040

== ENCOUNTER → 2020-01-26 14:04 | Outpatient (BNVA) | payer MEDICARE, SELFPAY | PROVIDERS: Family Provider Nurse Practitioner Family; PCP Nurse Practitioner Family; Visit Provider Nurse Practitioner Family | DX: R60.9 Edema, unspecified (principal) | CPT/HCPCS: 80053 ==

== ENCOUNTER 2020-01-27 08:33 | Outpatient (RCR) | payer MEDICARE, SELFPAY | END 2020-01-29 23:59 | disposition home or self-care (01) | LOC: WOUND 08:33 | PROVIDERS: Family Provider Nurse Practitioner Family; PCP Nurse Practitioner Family; Visit Provider Thoracic Surgery (Cardiothoracic Vascular Surgery) | DX: L98.492 Non-pressure chronic ulcer of skin of other sites with fat layer exposed (principal); I96 Gangrene, not elsewhere classified | CPT/HCPCS: 11042; 99203; G0463 ==

== ENCOUNTER 2020-01-29 06:53 | Outpatient (RCR) | payer MEDICARE, SELFPAY ==
--- NOTE | 2020-01-14 09:20 | ONC FU_ITS ---
Dr. Bob Patient Follow-Up Note Patient: Julius Blake Unit #: [id number]: [id number] Dicatated By: Eliud Bob M.D.Date of Visit:Jan 13, 2020 Onc Med Follow-up/Prog Note Chief Complaint: Lymphoma. 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 He had presented with a knot on the left side of his neck, first noticed sometime in August. He was referred to Dr. Sanchez. A noncontrast neck CT on 09/09/2019 showed level 1A submental lymph nodes measuring up to 13 mm, level 1B submandibular lymph nodes, including a node on the left side measuring 17 mm. A level 2 jugular lymph node measured up to 2 cm, and smaller level 2 lymph nodes on the left side measured up to 12 mm. Level 3 nodes on the left side measured up to 13 mm. There were no enlarged lymph nodes noted in the superior mediastinum. On 09/15/2019 he underwent excisional biopsy of a left cervical lymph node. Pathology was nondiagnostic. He then underwent repeat left cervical lymph node biopsy on 10/06/2019. Pathology showed follicular lymphoma, grade 3B. Also reported was a focal proliferation of Langerhans' cells, and a component of Langerhans' cell neoplasm was not excluded. Furthermore, there was noted to be a discrepancy between the flow cytometry studies and the histologic findings. As such, a prognostic profile by FISH was requested to rule out a double hit lymphoma, and that came back negative for BL-6 and MYC rearrangement. His staging PET/CT had to be delayed because of insurance issues. It was eventually completed on 11/11/2019. It showed an area of hypermetabolic activity involving the nasopharyngeal soft tissue with a maximum SUV 6.09 on the right and SUV 4.34 on the left. There was otherwise just a few shotty lymph nodes noted within the left lower cervical chain, maximum SUV 2.43, and a few shotty left cervical chain lymph nodes at the level of the thyroid cartilage, maximum SUV 3.66. There was no suspicious uptake noted within the chest, abdomen, or pelvis. With those findings, he was recommended to undergo treatment with short course R-CHOP chemotherapy followed by involved field radiation. His baseline echocardiogram showed normal left ventricular systolic function with ejection fraction 74%. His other medical illnesses include hypertension, hyperlipidemia, type 2 diabetes, chronic kidney disease, coronary artery disease, atrial fibrillation, and carotid stenosis. He has had previous coronary artery bypass surgery and right carotid endarterectomy. He also has hypothyroidism and degenerative arthritis. He has a history of smoking 1 pack of cigarettes daily, but he quit smoking back in 1982. His since then chewed tobacco. INTERIM HISTORY: He began cycle 1 of R-CHOP on 11/18/2019. He was given first cycle prophylaxis with Neulasta. He did have some fatigue with the chemotherapy, and he also had significant musculoskeletal pain associated with the Neulasta. His blood counts, though, remained adequate, and overall he tolerated it pretty well. He continued with cycle 2 on 12/09/2019. At that point he had developed some erythema at his Port-A-Cath site, and it subsequently opened and drained. Culture grew Enterococcus faecalis. He underwent removal of the Port-A-Cath on 12/23/2019. He was given antibiotic coverage with Augmentin. He then underwent placement of a PICC line and he continued with cycle 3 of R-CHOP on 12/30/3019. Restaging PET/CT on 01/07/2020 showed findings consistent with a complete response, [place] 1. That day he developed weakness, lethargy, and mental status changes, and he was admitted to the hospital with febrile neutropenia. He recovered uneventfully on broad spectrum antibiotic coverage. His blood cultures were negative. He was discharged home on Levaquin. He is seen for a followup visit. He is still very weak following his recent illness. He has very limited activity. He has started to do some exercises now. His ECOG score is 2. His appetite is getting better. He still has an open wound at the Port-A-Cath site in the upper right chest wall. He is not having fever or chills now. He has no shortness of breath, cough, or chest pain. He recently had stool that was a little black. He has no other GI or complaints. He has pain at his Port-A-Cath site. He has no other joint or bone pain. He has no focal neurologic symptoms. Medications: Amiodarone HCl 1 Tablet (of 100 mg) Oral q 24 hours, Benicar 1 Tablet (of 40 mg) Oral daily, hydrALAZINE HCl 2 Tablet (of 50 mg) Oral t.i.d., HYDROcodone-Acetaminophen 1 Tablet (of 5-325 mg) Oral PRN, Levemir Flexpen 32 Units Subcutaneous at bedtime, LORazepam 0.5 - 1 Tablet (of 1 mg) Oral t.i.d., LORazepam 1 Tablet (of 0.5 mg) Oral t.i.d. PRN, Lyrica 1 - 2 Capsule (of 75 mg) Oral daily, NovoLIN 70/30 25 Units (of (70-30) 100 Units/mL) Subcutaneous b.i.d., Promethazine HCl 1 Tablet (of 25 mg) Oral t.i.d. PRN, Protonix 1 Capsule (of 40 mg) Tablet, enteric coated Oral daily, Simvastatin 1 Tablet (of 40 mg) Oral daily, Synthroid 1 Tablet (of 150 mcg) Oral daily, Vitamin D 1 Tablet (of 83008 Units) Oral q 7 days PRN Allergies: No Known Allergies. Review of Systems: Constitutional - His energy has declined. He has limited activity, but he has started doing some light excercising. His appetite is getting better. His weight is down a few pounds. No fever, chills, hot flashes, or night sweats. ECOG score is 2, ENMT - No sinus congestion/drainage. He had mouth sores, but it is better now. No sore throat or difficulty swallowing, Hematologic/Lymphatic - He bruises easily, Respiratory - No shortness of breath. No cough. No pleuritic pain or hemoptysis, Cardiovascular - No angina pain. No palpitations, Gastrointestinal - No nausea or vomiting. No heartburn or acid reflux. No diarrhea or constipation. No blood in the stool. He had black stool yesterday, Genitourinary (M) - No dysuria or hematuria. No urinary frequency. No urgency or incontinence, Musculoskeletal - He has pain to his right chest wall related to infection at his portacath site, Integumentary - He has a PICC line in his left arm with dressing in place, Neurologic - No headache or dizziness. No numbness/paresthesias or other focal neurologic symptoms, Psychiatric - No anxiety or depression. He has difficulty sleeping. Vital Signs: Performed on Jan 13, 2020 09:00 Height - 68.00 in Weight - 260.8 lbs (LOW) BSA - 2.29 sq.m BMI - 39.65 (HIGH) Temperature - 97.3 F (LOW) Pulse - 65 /min Respiration - 26 /min BP - 164/60 mm(hg) (HIGH) O2 Sat - 97 % Pain - 9 Physical Examination: Constitutional - He appears generally weak, Eyes - Sclerae nonicteric. Conjunctivae clear, ENMT - No lesions noted in the oral cavity, Hematologic/Lymphatic - No cervical, clavicular, or axillary adenopathy, Respiratory - Lungs sound clear, Cardiovascular - Heart rhythm is regular. There is a II/ systolic murmur. There is no gallop or rub noted, Chest - There is an open wound at the portacath site in the upper right chest wall, Abdomen - Distended. Liver and spleen are not enlarged. There is no abdominal mass or ascites noted and there is no inguinal adenopathy, Extremities - Mild edema. There are scattered purpuric lesions, Neurologic - No focal neurologic deficits noted. Lab/Imaging: His CBC from 01/10/2020 showed hemoglobin 9.5 g, white blood cell count 3000, and platelet count 39,000. The absolute neutrophil count was 1800. Impression: 1. Patient with follicular lymphoma, grade 3B. The FISH prognostic profile was negative for double hit lymphoma. By clinical evaluation he appears to have stage II disease with involvement limited to the nasopharyngeal soft tissues and left cervical lymph nodes. 2. He has chronic illness and generally poor performance status. His other medical illnesses include: 3. Hypertension. 4. Hyperlipidemia. 5. Type 2 diabetes. 6. Chronic kidney disease. 7. Coronary artery disease with previous coronary artery bypass. 8. Atrial fibrillation. 9. Carotid stenosis with previous right carotid endarterectomy. 10. Hypothyroidism. 11. Degenerative arthritis. In the setting of grade 3B follicular lymphoma and localized involvement, he was recommended undergo short course R-CHOP chemotherapy followed by involved field radiation. His baseline echocardiogram showed normal left ventricular function with ejection fraction at 74%. He began cycle 1 of R-CHOP on 11/18/2019. He was given first cycle prophylaxis with Neulasta. Overall, he tolerated the treatment pretty well. He has had some fatigue, and he had musculoskeletal pain following the Neulasta injection. His blood counts remained adequate. He continued with cycle 2 on 12/09/2019. He has since then had some further decline in his activity tolerance. He again experienced musculoskeletal pain with the Neulasta injection. He also had insomnia and increased blood sugars with the prednisone. He developed an infection at the Port-A-Cath site in the upper right chest wall, requiring removal of the Port-A-Cath. He underwent placement of the PICC line in the left arm and he then proceeded with cycle 3 of R-CHOP on 12/30/2019. Restaging PET/CT on 01/07/2020 showed findings consistent with complete response. However, that same day he developed increased weakness, lethargy, and mental status changes, and he was admitted to the hospital with febrile neutropenia. He improved on broad-spectrum antibiotic coverage. His blood cultures were negative. Previous cultures from the Port-A-Cath site had grown Enterococcus faecalis, Pseudomonas aeruginosa, and Morganelli morganii. He was discharged home on Levaquin. Plan: He does appear to be showing adequate recovery from the febrile neutropenia. As he has a complete response by restaging PET/CT, I am not going to attempt any further chemotherapy. He is scheduled to see the radiation oncologist next week for consolidation radiation. In the meantime, I will have him seen at wound care for further management of the open wound at the Port-A-Cath site. Signed By: Eliud Bob M.D. <<Signature on File>>
[2020-01-20 17:05] LABS: Basophils # 0.1 10^3/uL (0.0-0.1); Eosinophils % 0.6 %; Hematocrit 31.4 % (42.0-52.0); Hemoglobin 9.8 g/dL (11.7-16.6); Lymphocytes # 0.8 10^3/uL (0.8-4.8); Lymphocytes % 12.3 %; Mean Corpuscular HGB Conc 31.2 g/dL (30.0-36.0); Mean Corpuscular Hemoglobin 32.1 pg (28.0-34.0); Mean Platelet Volume 10.6 fL (7.4-10.4); Monocytes # 1.3 10^3/uL (0.2-0.9); Monocytes % 20.7 %; Neutrophils # 3.8 10^3/uL (1.8-7.7); Neutrophils % 61.1 %; Nucleated Red Blood Cells % 0 %; Platelet Count 175 10^3/cmm (130-400); Red Blood Count 3.05 10^6/uL (4.1-5.3); Red Cell Distribution Width 16.6 % (12.1-15.1); White Blood Count 6.3 10^3/uL (4.0-10.0)
[2020-01-20 23:23] LABS: Alanine Aminotransferase 19 U/L (0-41); Albumin Level 3.7 g/dL (3.5-5.2); Alkaline Phosphatase 58 IU/L (40-130); Anion Gap 18.9 (5-19); Aspartate Amino Transferase 25 U/L (0-40); Blood Urea Nitrogen 38 mg/dL (8-23); Calcium 9.5 mg/dL (8.5-10.5); Carbon Dioxide 25 mmol/L (22-29); Chloride 100 mmol/L (98-107); Globulin 2.3 g/dL (1.3-4.6); Glucose 180 mg/dL (65-115); Lactate Dehydrogenase 344 U/L (135-225); Osmolality Calculated 290 mOsm/kg (285-295); Potassium 4.9 mmol/L (3.5-5.1); Sodium 139 mmol/L (136-145); Total Bilirubin 0.2 mg/dL (0.15-1.2)
--- NOTE | 2020-01-22 | CT_ITS ---
Radiation Therapy Planning CT images; total exam DLP: 1194.32 mGy-cm MTDD
--- NOTE | 2020-01-22 08:23 | N.ONRAD NP_ITS ---
Radiation Oncology New Patient Visit Patient: Julius Blake MR#: [id number] : 1945> Age: 74> Sex: Male> Dictated by: Dr. Edmundo Felix Date of Service: 01/21/2020 Referring Physician(s) : Dr. Piyush Sanchez Diagnosis: C82.21 - follicular lymphoma grade iii, unspecified, lymph nodes of head, face, and neck, Diagnosed 10/17/2019 (active), stage iia, ii, a. Radiotherapy to date: Summary > No prior radiation therapy. 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 He has had 3 cycles of R-CHOP chemotherapy from November through November 2019 and has achieved a complete response as seen on follow-up PET/CT imaging from January 07, 2020. We were asked to see him regarding consolidative involved site radiation treatment. Mr. Blake is a 74-year-old gentleman who presented with a symptomatic mass in his left neck. He had an initial excisional biopsy in August 2019 which was nondiagnostic. Repeat biopsy in October 2019 revealed grade 3 follicular non-Hodgkin's lymphoma further studies included a prognostic profile by FISH which came back negative for BL???6 and negative for MYC rearrangement. PET CT scan from November 11, 2019 was reviewed it revealed distinct hypermetabolic uptake in the nasopharynx and 6 less distinct hypermetabolic uptake in anterior and posterior left cervical lymph nodes. There was no significant uptake seen elsewhere. He underwent 3 cycles of R-CHOP chemotherapy from November through November 2019. He completed his last cycle on December 30, 2019. Following his second cycle of chemotherapy he had an infection around his Port-A-Cath site which was removed on December 23, 2019. His last cycle was given with a PICC line. Repeat staging PET CT scan on January 19, 2020 was reviewed and was negative for persistent disease. Following his PET CT scan he was admitted for febrile neutropenia. He was covered with antibiotics and was discharged after 4-day hospitalization. 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 He now is undergoing some physical therapy at home for strengthening.. He is slowly increasing his activities of daily living at home. His is managing his Port-A-Cath infection with wound care at home. Current Medications: Accu-Chek Sarah Plus, acetaminophen, amiodarone HCl, benicar, cyclophosphamide, dexamethasone Sodium Phosphate, diphenhydrAMINE HCl, dOXOrubicin HCl, emend, hydrALAZINE HCl, hYDROcodone-Acetaminophen, hYDROcodone-Acetaminophen, lactulose, levemir Flexpen, lORazepam, lORazepam, lyrica, novoLIN 70/30, palonosetron HCl, predniSONE, prochlorperazine Maleate, promethazine HCl, protonix, riTUXimab, senna S, simvastatin, sodium Chloride, synthroid, vinCRIStine Sulfate, vitamin D. Allergies: No Known Allergies Medical History: - Atrial fibrillation, - chronic kidney disease, - coronary artery disease, - degenerative arthritis, - hyperlipidemia, - hypertension, - hypothyroidism, - type II diabetes. No history of collagen vascular disease. No previous radiation therapy. Surgical History: Coronary artery bypass in 2008, left total knee arthroplasty in 2006, right carotid endarterectomy in 2009 and [place]cl[place] [facility] [place]. Family History: Father is at age 84 having experienced stroke. Mother is at age 84 having experienced pancreatic cancer. Brother is . Father of stroke at age 82. Mother of pancreatic cancer, also at age 82. He had a total of 21 siblings, which included 6 full brothers and 6 full sisters. Two brothers had colon cancer. At least 1 brother and 1 sister had diabetes. A daughter with cerebral palsy at age 33. A grandson has been treated for testicular cancer. Social History: Last screened on 01/21/2020 - Yes - but has quit. Last screened on 01/21/2020 - Never drank. Patient indicated use of the following products: chewing tobacco. He has been for 56 years had 3 children, lost 1 daughter from cerebral palsy as noted above.. Distant history of smoking and quit in 1982. No alcohol use. Retired from a [employer] where he worked for 48 years. Current Complaints / Review of Systems: Constitutional - Complains of mild fatigue. Complains of change in weight in which he is down about 15 pounds in about 2 months. Denies lack of appetite, fever and night sweats. Eyes - Denies blurred vision and double vision. ENMT - Denies dysphagia, ear pain, mouth dryness, stomatitis and altered taste. Neck - Denies neck pain. Integumentary - Denies rash. Cardiovascular - Complains of arrhythmias in which he has H/O A-fib and edema. Denies chest pain. Respiratory - Complains of dyspnea associated with normal activity. Complains of mild wheezing. Denies cough. Gastrointestinal - Complains of nausea occasionally. Denies abdominal pain, constipation, diarrhea, heartburn / dyspepsia, melena / GI bleeding and vomiting. Genitourinary (M) - Complains of nocturia gets up about 1 time per night. Denies dysuria, frequency and urgency. Musculoskeletal - Denies bone pain, joint pain and muscle weakness. Neurologic - Complains of intermittent dizziness that occurs upon sitting to standing. Denies headaches. Endocrine - Complains of Type 2 diabetes. Complains of thyroid disease. Hematologic/Lymphatic - Denies tender or enlarged lymph nodes.. Vital Signs: Performed on 01/21/2020 3:44 PM Height - 68.00 in, Weight - 264.2 lbs (high), BSA - 2.30 sq.m, BMI - 40.17 (high), Temperature - 98.2 f (low), Pulse - 81 /min, Respiration - 24 /min, O2 Sat - 97 %, Pain - 1, BP - 157/ 79 mm(hg)(high/), Performed on 01/21/2020 3:51 PM BMI - 40.172 kg/m2 (high), Height - 68.00 in, Weight - 264.2 lbs, Temperature - 98.2 f, Pulse - 81, Respiration - 24, O2 Sat - 97 %, Pain - 0 and BP - 157/ 79 mm(hg)(high/). Physical Exam: He was a robust obese gentleman in no acute distress. He was alopecia from prior chemotherapy. H EENT examination otherwise unremarkable. Lymph nodes he had no palpable cervical or supraclavicular adenopathy. Lungs were clear to auscultation. Heart was regular with a distinct murmur. Right chest had a adhesive bandage at the site of his Port-A-Cath infection. Abdominal examination revealed obesity. Lower extremities revealed modest right pedal edema no clubbing or cyanosis. He had no focal neurologic deficits. Performance Status: Pathology: Primary, c82.21 - follicular lymphoma grade iii, unspecified, lymph nodes of head, face, and neck, Diagnosed 10/17/2019 (active) stage iia, ii, a. Lab: Test performed on 11/18/2019 12:01 PM TSH - 4.50 uiu/ml (high), Test performed on 12/22/2019 4:00 AM Manual Bands Abs - 1.6 10 3/cmm (high), Manual Monocytes Abs - 1.3 10 3/cmm (high), Test performed on 12/29/2019 7:50 AM RBC - 2.88 10 6/ul (low), HGB - 9.1 g/dl (low), HCT - 29.4 % (low), MCV - 102.1 fl (high), MPV - 10.7 fl (high), Monocytes - 1.1 10 3/ul (high), BUN - 28 mg/dl (high), Creatinine - 1.9 mg/dl (high), Cr Clearance (Est) - 58.7100 ml/min (low), Glucose - 252 mg/dl (high), Protein, Total - 6.2 g/dl (low) and LDH (Total) - 292 u/l (high). Imaging: See HPI Impression: Stage IIa grade 3 follicular non-Hodgkin's lymphoma. He has had 3 cycles of R-CHOP chemotherapy with a complete response. Consolidative radiation treatment to a dose of 24 Baer is reasonable. We will confine her treatment to his nasopharynx and left cervical mary region. Radiation to the involved site will improve durability of local control. I discussed this in detail with the patient and his and Dr. Eliud Bob. I outlined the modest toxicities of treatment with the patient including mild fatigue possible loss of some taste and focal alopecia in the areas treated. plan: Plan is to schedule simulation with involved site treatment to 24 Gy to follow. Signed by: 01/22/2020 8:22:02 AM <<Signature on File>> Time spent with patient: 60 minutes CPT Code: CPT Code:
--- NOTE | 2020-01-24 15:09 | ONC FU_ITS ---
Dr. Bob Patient Follow-Up Note Patient: Julius Blake Unit #: [id number]: 1945 Dicatated By: Eliud Bob M.D.Date of Visit:Jan 21, 2020 Onc Med Follow-up/Prog Note Chief Complaint: Lymphoma. 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 He had presented with a knot on the left side of his neck, first noticed sometime in August. He was referred to Dr. Sanchez. A noncontrast neck CT on 09/09/2019 showed level 1A submental lymph nodes measuring up to 13 mm, level 1B submandibular lymph nodes, including a node on the left side measuring 17 mm. A level 2 jugular lymph node measured up to 2 cm, and smaller level 2 lymph nodes on the left side measured up to 12 mm. Level 3 nodes on the left side measured up to 13 mm. There were no enlarged lymph nodes noted in the superior mediastinum. On 09/15/2019 he underwent excisional biopsy of a left cervical lymph node. Pathology was nondiagnostic. He then underwent repeat left cervical lymph node biopsy on 10/06/2019. Pathology showed follicular lymphoma, grade 3B. Also reported was a focal proliferation of Langerhans' cells, and a component of Langerhans' cell neoplasm was not excluded. Furthermore, there was noted to be a discrepancy between the flow cytometry studies and the histologic findings. As such, a prognostic profile by FISH was requested to rule out a double hit lymphoma, and that came back negative for BL-6 and MYC rearrangement. His staging PET/CT had to be delayed because of insurance issues. It was eventually completed on 11/11/2019. It showed an area of hypermetabolic activity involving the nasopharyngeal soft tissue with a maximum SUV 6.09 on the right and SUV 4.34 on the left. There was otherwise just a few shotty lymph nodes noted within the left lower cervical chain, maximum SUV 2.43, and a few shotty left cervical chain lymph nodes at the level of the thyroid cartilage, maximum SUV 3.66. There was no suspicious uptake noted within the chest, abdomen, or pelvis. With those findings, he was recommended to undergo treatment with short course R-CHOP chemotherapy followed by involved field radiation. His baseline echocardiogram showed normal left ventricular systolic function with ejection fraction 74%. His other medical illnesses include hypertension, hyperlipidemia, type 2 diabetes, chronic kidney disease, coronary artery disease, atrial fibrillation, and carotid stenosis. He has had previous coronary artery bypass surgery and right carotid endarterectomy. He also has hypothyroidism and degenerative arthritis. He has a history of smoking 1 pack of cigarettes daily, but he quit smoking back in 1982. His since then chewed tobacco. INTERIM HISTORY: He began cycle 1 of R-CHOP on 11/18/2019. He was given first cycle prophylaxis with Neulasta. He did have some fatigue with the chemotherapy, and he also had significant musculoskeletal pain associated with the Neulasta. His blood counts, though, remained adequate, and overall he tolerated it pretty well. He continued with cycle 2 on 12/09/2019. At that point he had developed some erythema at his Port-A-Cath site, and it subsequently opened and drained. Culture grew Enterococcus faecalis. He underwent removal of the Port-A-Cath on 12/23/2019. He was given antibiotic coverage with Augmentin. He then underwent placement of a PICC line and he continued with cycle 3 of R-CHOP on 12/30/3019. Restaging PET/CT on 01/07/2020 showed findings consistent with a complete response, Deauville 1. That day he developed weakness, lethargy, and mental status changes, and he was admitted to the hospital with febrile neutropenia. He recovered uneventfully on broad spectrum antibiotic coverage. His blood cultures were negative. He was discharged home on Levaquin. He was seen for a follow-up visit on 01/13/2020. At that point he was showing gradual recovery. He still had an open wound at the Port-A-Cath site, for which he was referred to wound care clinic. He continued antibiotic coverage with Augmentin and Levaquin. He is seen for a follow-up visit. He has been feeling pretty good for the past 2 to 3 days. He still has limited activity, but he is ambulating and doing some exercises. ECOG score is 2. His appetite is coming back. He does not have fever or night sweats. He does not have sore mouth or throat. His breathing is still not real good. He does not complain of cough and he has not been having chest pain. He occasionally has a little bit of nausea. He has no other GI or complaints. He has no significant joint or bone pain. He still has a PICC line in his left arm. He has no focal neurologic symptoms. Medications: Amiodarone HCl 1 Tablet (of 100 mg) Oral q 24 hours, Benicar 1 Tablet (of 40 mg) Oral daily, hydrALAZINE HCl 2 Tablet (of 50 mg) Oral t.i.d., HYDROcodone-Acetaminophen 1 Tablet (of 5-325 mg) Oral PRN, Levemir Flexpen 32 Units Subcutaneous at bedtime, LORazepam 0.5 - 1 Tablet (of 1 mg) Oral t.i.d., LORazepam 1 Tablet (of 0.5 mg) Oral t.i.d. PRN, Lyrica 1 - 2 Capsule (of 75 mg) Oral daily, NovoLIN 70/30 25 Units (of (70-30) 100 Units/mL) Subcutaneous b.i.d., Promethazine HCl 1 Tablet (of 25 mg) Oral t.i.d. PRN, Protonix 1 Capsule (of 40 mg) Tablet, enteric coated Oral daily, Simvastatin 1 Tablet (of 40 mg) Oral daily, Synthroid 1 Tablet (of 150 mcg) Oral daily, Vitamin D 1 Tablet (of 70052 Units) Oral q 7 days PRN Allergies: No Known Allergies. Review of Systems: Constitutional - Complains of mild fatigue. Complains of change in weight in which he is down about 15 pounds in about 2 months. Denies lack of appetite, fever and night sweats, Eyes - Denies blurred vision and double vision, ENMT - Denies dysphagia, ear pain, mouth dryness, stomatitis and altered taste, Neck - Denies neck pain, Integumentary - Denies rash, Cardiovascular - Complains of arrhythmias in which he has H/O A-fib and edema. Denies chest pain, Respiratory - Complains of dyspnea associated with normal activity. Complains of mild wheezing. Denies cough, Gastrointestinal - Complains of nausea occasionally. Denies abdominal pain, constipation, diarrhea, heartburn / dyspepsia, melena / GI bleeding and vomiting, Genitourinary (M) - Complains of nocturia gets up about 1 time per night. Denies dysuria, frequency and urgency, Musculoskeletal - Denies bone pain, joint pain and muscle weakness, Neurologic - Complains of intermittent dizziness that occurs upon sitting to standing. Denies headaches, Endocrine - Complains of Type 2 diabetes. Complains of thyroid disease, Hematologic/Lymphatic - Denies tender or enlarged lymph nodes, Constitutional - He is feeling pretty good. He does some light excercising/walking at home. His appetite is good and weight is stable. No fever, chills, hot flashes, or night sweats. ECOG score is 2, ENMT - No sinus congestion/drainage. The soreness in his mouth has improved. No sore throat or difficulty swallowing, Hematologic/Lymphatic - He bruises easily, Respiratory - He has shortness of breath with activity. No cough. No pleuritic pain or hemoptysis, Cardiovascular - No angina pain. No palpitations, Gastrointestinal - No nausea or vomiting. No heartburn or acid reflux. No diarrhea or constipation. No blood in the stool or black stools, Genitourinary (M) - No dysuria or hematuria. No urinary frequency. No urgency or incontinence, Musculoskeletal - No joint or bone pain, Integumentary - The infection at his port site is improving. He is being followed at [facility]. His PICC remains in place in his left upper arm, Neurologic - No headache or dizziness. No numbness/paresthesias or other focal neurologic symptoms, Psychiatric - No anxiety or depression. No insomnia. Vital Signs: Performed on Jan 21, 2020 15:51 Height - 68.00 in Weight - 264.2 lbs Temperature - 98.2 F Pulse - 81 Respiration - 24 BP - 157/79 mm(hg) (HIGH) O2 Sat - 97 % Pain - 0 Performed on Jan 21, 2020 15:51 BMI - 40.172 kg/m2 (HIGH) Performed on Jan 21, 2020 15:44 Height - 68.00 in Weight - 264.2 lbs (HIGH) BSA - 2.30 sq.m BMI - 40.17 (HIGH) Temperature - 98.2 F (LOW) Pulse - 81 /min Respiration - 24 /min BP - 157/79 mm(hg) (HIGH) O2 Sat - 97 % Pain - 1 Physical Examination: Constitutional - He still appears generally weak, Eyes - Sclerae nonicteric. Conjunctivae clear, ENMT - No lesions noted in the oral cavity, Hematologic/Lymphatic - No cervical, clavicular, or axillary adenopathy, Respiratory - Lungs sound clear, Cardiovascular - Heart rhythm is regular. There is a II/ systolic murmur. There is no gallop or rub noted, Abdomen - Moderately distended but soft. Liver and spleen are not enlarged. There is no abdominal mass or ascites noted and there is no inguinal adenopathy, Extremities - Mild edema. He has multiple ecchymosis/purpuric lesions, Integumentary - There is still an open wound in the upper right chest wall, but is showing signs of healing, Neurologic - No focal neurologic deficits noted. Lab/Imaging: Test performed on Jan 20, 2020 10:20 LDH (Total) 344 U/L Sodium 139 mmol/L Potassium 4.9 mmol/L Chloride 100 mmol/L CO2 25 mmol/L Anion Gap 18.9 BUN 38 mg/dL Creatinine 2.2 mg/dL Cr Clearance (Est) 50.7000 mL/min Glucose 180 mg/dL Calcium 9.5 mg/dL Protein, Total 6.0 g/dL Albumin 3.7 g/dL Globulin 2.3 g/dL Bilirubin, Total 0.2 mg/dL ALT (SGPT) 19 U/L AST (SGOT) 25 U/L Alkaline Phosphatase 58 IU/L WBC 6.3 10 3/uL RBC 3.05 10 6/uL HGB 9.8 g/dL HCT 31.4 % MCV 103.0 fL MCH 32.1 pg MCHC 31.2 g/dL RDW 16.6 % Platelet Count 175 10 3/cmm MPV 10.6 fL Neutrophils 3.8 10 3/uL Lymphocytes 0.8 10 3/uL Monocytes 1.3 10 3/uL Eosinophils 0.0 10 3/uL Basophils 0.1 10 3/uL Neutrophil % 61.1 % Lymphocyte % 12.3 % Monocyte % 20.7 % Eosinophil % 0.6 % Basophils % 1.0 % Impression: 1. Patient with follicular lymphoma, grade 3B. The FISH prognostic profile was negative for double hit lymphoma. By clinical evaluation he appears to have stage II disease with involvement limited to the nasopharyngeal soft tissues and left cervical lymph nodes. 2. He has chronic illness and generally poor performance status. His other medical illnesses include: 3. Hypertension. 4. Hyperlipidemia. 5. Type 2 diabetes. 6. Chronic kidney disease. 7. Coronary artery disease with previous coronary artery bypass. 8. Atrial fibrillation. 9. Carotid stenosis with previous right carotid endarterectomy. 10. Hypothyroidism. 11. Degenerative arthritis. In the setting of grade 3B follicular lymphoma and localized involvement, he was recommended undergo short course R-CHOP chemotherapy followed by involved field radiation. His baseline echocardiogram showed normal left ventricular function with ejection fraction at 74%. He began cycle 1 of R-CHOP on 11/18/2019. He was given first cycle prophylaxis with Neulasta. Overall, he tolerated the treatment pretty well. He has had some fatigue, and he had musculoskeletal pain following the Neulasta injection. His blood counts remained adequate. He continued with cycle 2 on 12/09/2019. He has since then had some further decline in his activity tolerance. He again experienced musculoskeletal pain with the Neulasta injection. He also had insomnia and increased blood sugars with the prednisone. He developed an infection at the Port-A-Cath site in the upper right chest wall, requiring removal of the Port-A-Cath. He underwent placement of the PICC line in the left arm and he then proceeded with cycle 3 of R-CHOP on 12/30/2019. Restaging PET/CT on 01/07/2020 showed findings consistent with complete response. However, that same day he developed increased weakness, lethargy, and mental status changes, and he was admitted to the hospital with febrile neutropenia. He improved on broad-spectrum antibiotic coverage. His blood cultures were negative. Previous cultures from the Port-A-Cath site had grown Enterococcus faecalis, Pseudomonas aeruginosa, and Morganelli morganii. He was discharged home on Levaquin. I had seen him for a follow-up visit on 01/13/2020. I did opt to have him also continue antibiotic coverage with Augmentin, and I did arrange for referral to wound care clinic. He has since then continued to show gradual recovery. Plan: His PICC line will be removed now. He will see the radiation oncologist for consolidation radiation. I will plan to see him again after the radiation is completed. Signed By: Eliud Bob M.D. <<Signature on File>>
--- NOTE | 2020-01-28 16:38 | ONCRAD TMN_ITS ---
Radiation Oncology Weekly Treatment Management Patient: Julius Blake MR#: [id number] : 1945> Age: 74> Sex: Male Dictated by: Dr. Edmundo Felix Date of Service: 01/28/2020 Referring Physician(s) : Dr. Piyush Sanchez Primary Diagnosis: C82.21 - Follicular lymphoma grade III, unspecified, lymph nodes of head, face, and neck, Diagnosed 10/17/2019 (Active) Stage IIA, II, A Radiotherapy to date: Course: HN 24Gy, Treatment Site: HN 24Gy, Ref. ID: [id number], Energy: 15X/6X, Dose/Fx (cGy): 200, #Fx: , Dose Correction (cGy): 0, Total Dose (cGy): 200, Start Date: 01/28/2020, Elapsed Days: 0 Current Complaints/Interval History: He just began treatment. He has modest nosebleed last night which was self-limited. He has minimal nausea treated with his antiemetic. His appetite is improving. Constitutional Complains of lack of appetite and fatigue but states his appetite and energy are improving since conclusion of chemotherapy. ENMT Complains of epistaxis this morning. Integumentary Denies rash. Cardiovascular Denies chest pain and palpitations. Respiratory Denies dyspnea. Gastrointestinal Complains of nausea this morning. Denies constipation, diarrhea and heartburn / dyspepsia. Genitourinary (M) Denies dysuria and frequency. Musculoskeletal Denies bone pain and joint pain. Neurologic Complains of headaches this morning. Denies dizziness. Psychiatric Denies depression. Current Medications: Accu-Chek Sarah Plus, acetaminophen, amiodarone HCl, benicar, cyclophosphamide, dexamethasone Sodium Phosphate, diphenhydrAMINE HCl, dOXOrubicin HCl, emend, hydrALAZINE HCl, hYDROcodone-Acetaminophen, hYDROcodone-Acetaminophen, lactulose, levemir Flexpen, lORazepam, lORazepam, lyrica, novoLIN 70/30, palonosetron HCl, predniSONE, prochlorperazine Maleate, promethazine HCl, protonix, riTUXimab, senna S, simvastatin, sodium Chloride, synthroid, vinCRIStine Sulfate, vitamin D. Allergies: No Known Allergies Vital Signs: Performed on 01/28/2020 4:24 PM Weight - 263.8 lbs, Temperature - 98.6 f, Pulse - 60, Respiration - 20, O2 Sat - 98 %, Pain - 0 and BP - 147/ 50 mm(hg)(high/low). Physical Exam: Appears stable, no skin erythema or desquamation. Performance Status: 2 - Ambulatory/capable of all self-care, unable to perform any work activities. Up and about more than 50% of waking hours. (ECOG) Lab: None pending in Radiation Oncology. Test performed on 11/18/2019 12:01 PM TSH - 4.50 uiu/ml (high), Test performed on 12/22/2019 4:00 AM Manual Bands Abs - 1.6 10 3/cmm (high), Manual Monocytes Abs - 1.3 10 3/cmm (high), Test performed on 01/20/2020 10:20 AM RBC - 3.05 10 6/ul (low), HGB - 9.8 g/dl (low), HCT - 31.4 % (low), MCV - 103.0 fl (high), RDW - 16.6 % (high), MPV - 10.6 fl (high), Monocytes - 1.3 10 3/ul (high), BUN - 38 mg/dl (high), Creatinine - 2.2 mg/dl (high), Cr Clearance (Est) - 50.7000 ml/min (low), Glucose - 180 mg/dl (high), Protein, Total - 6.0 g/dl (low) and LDH (Total) - 344 u/l (high). Imaging: No new diagnostic imaging was performed since the last weekly treatment visit. All radiation therapy related imaging (including but not limited to kV, MV, and CBCT generated images) was reviewed. Appropriate changes, if any, were made to assure accurate target localization. Impression/Plan: Tolerating treatment well with expected side effects. Continue treatment as planned. CPT: 53247 Signed by: Dr. Edmundo Felix>01/28/2020 4:37:24 PM <<Signature on File>>
== END 2020-01-29 23:59 | disposition home or self-care (01) ==
LOC: ONCMED 06:53
PROVIDERS: Internal Medicine Medical Oncology; Absent Provider Radiology Radiation Oncology; Family Provider Nurse Practitioner Family; PCP Nurse Practitioner Family; Visit Provider Radiology Radiation Oncology
DX: Z51.0 Encounter for antineoplastic radiation therapy (principal); C82.21 Follicular lymphoma grade III, unspecified, lymph nodes of head, face, and neck; I48.91 Unspecified atrial fibrillation; I25.10 Atherosclerotic heart disease of native coronary artery without angina pectoris; M19.90 Unspecified osteoarthritis, unspecified site; E78.5 Hyperlipidemia, unspecified; E03.9 Hypothyroidism, unspecified; E11.22 Type 2 diabetes mellitus with diabetic chronic kidney disease; I12.9 Hypertensive chronic kidney disease with stage 1 through stage 4 chronic kidney disease, or unspecified chronic kidney disease; N18.9 Chronic kidney disease, unspecified; Z79.899 Other long term (current) drug therapy
CPT/HCPCS: 36415; 77290; 77295; 77300; 77334; 77387; 77412; 80053; 83615; 85025; 99205; 99214

== ENCOUNTER 2020-02-04 10:51 | Outpatient (CLI) | payer MEDICARE, SELFPAY | END 2020-02-04 10:52 | disposition home or self-care (01) | LOC: WOUND 10:52 | PROVIDERS: Family Provider Nurse Practitioner Family; PCP Nurse Practitioner Family; Visit Provider Thoracic Surgery (Cardiothoracic Vascular Surgery) | DX: T81.89XA Other complications of procedures, not elsewhere classified, initial encounter (principal); Y83.8 Other surgical procedures as the cause of abnormal reaction of the patient, or of later complication, without mention of misadventure at the time of the procedure | CPT/HCPCS: 11042 ==

== ENCOUNTER 2020-02-10 14:15 | Outpatient (CLI) | payer MEDICARE, SELFPAY | END 2020-02-10 14:16 | disposition home or self-care (01) | LOC: WOUND 14:16 | PROVIDERS: Family Provider Nurse Practitioner Family; PCP Nurse Practitioner Family; Visit Provider Thoracic Surgery (Cardiothoracic Vascular Surgery) | DX: T81.89XA Other complications of procedures, not elsewhere classified, initial encounter (principal); Y83.8 Other surgical procedures as the cause of abnormal reaction of the patient, or of later complication, without mention of misadventure at the time of the procedure | CPT/HCPCS: 11042 ==

== ENCOUNTER 2020-02-12 06:50 | Outpatient (RCR) | payer MEDICARE, SELFPAY ==
--- NOTE | 2020-02-04 16:05 | ONCRAD TMN_ITS ---
Radiation Oncology Weekly Treatment Management Patient: Julius Blake MR#: [id number] : 1945> Age: 74> Sex: Male Dictated by: Dr. Edmundo Felix Date of Service: 02/04/2020 Referring Physician(s) : Eliud Bob M.D. Primary Diagnosis: C82.21 - Follicular lymphoma grade III, unspecified, lymph nodes of head, face, and neck, Diagnosed 10/17/2019 (Active) Stage IIA, II, A Radiotherapy to date: Course: HN 24Gy, Treatment Site: HN 24Gy, Ref. ID: [id number], Energy: 15X/6X Dose/Fx (cGy): 200, #Fx: , Dose Correction (cGy): 0, Total Dose (cGy): 1,200, Start Date: 01/28/2020, Elapsed Days: 7 Current Complaints/Interval History: Mouth sores bad with chemo now limited to lower lip. Overall its improving. Swallowing ok. Energy ok mowed the lawn. Appetite poor in am better later in the day Constitutional Complains of lack of appetite in the mornings but gets better in the later afternoon. Complains of mild fatigue. Denies fever and night sweats. ENMT Complains of stomatitis and altered taste. Denies dysphagia, ear pain and mouth dryness. Neck Denies neck pain. Integumentary Has no redness to the area of treatment Respiratory Denies cough. Current Medications: Accu-Chek Sarah Plus, acetaminophen, amiodarone HCl, benicar, cyclophosphamide, dexamethasone Sodium Phosphate, diphenhydrAMINE HCl, dOXOrubicin HCl, emend, hydrALAZINE HCl, hYDROcodone-Acetaminophen, hYDROcodone-Acetaminophen, lactulose, levemir Flexpen, lORazepam, lORazepam, lyrica, novoLIN 70/30, palonosetron HCl, predniSONE, prochlorperazine Maleate, promethazine HCl, protonix, riTUXimab, senna S, simvastatin, sodium Chloride, synthroid, vinCRIStine Sulfate, vitamin D. Allergies: No Known Allergies Vital Signs: Performed on 02/04/2020 12:18 PM BMI - 40.172 kg/m2 (high), Height - 68.00 in, Weight - 264.2 lbs, Temperature - 97.6 f, Pulse - 61, Respiration - 20, O2 Sat - 96 %, Pain - 0 and BP - 146/ 63 mm(hg)(high/low). Physical Exam: Appears stable, no skin erythema or desquamation. Performance Status: 2 - Ambulatory/capable of all self-care, unable to perform any work activities. Up and about more than 50% of waking hours. (ECOG) Lab: None pending in Radiation Oncology. Test performed on 11/18/2019 12:01 PM TSH - 4.50 uiu/ml (high), Test performed on 12/22/2019 4:00 AM Manual Bands Abs - 1.6 10 3/cmm (high), Manual Monocytes Abs - 1.3 10 3/cmm (high), Test performed on 01/20/2020 10:20 AM RBC - 3.05 10 6/ul (low), HGB - 9.8 g/dl (low), HCT - 31.4 % (low), MCV - 103.0 fl (high), RDW - 16.6 % (high), MPV - 10.6 fl (high), Monocytes - 1.3 10 3/ul (high), BUN - 38 mg/dl (high), Creatinine - 2.2 mg/dl (high), Cr Clearance (Est) - 50.7000 ml/min (low), Glucose - 180 mg/dl (high), Protein, Total - 6.0 g/dl (low) and LDH (Total) - 344 u/l (high). Imaging: No new diagnostic imaging was performed since the last weekly treatment visit. All radiation therapy related imaging (including but not limited to kV, MV, and CBCT generated images) was reviewed. Appropriate changes, if any, were made to assure accurate target localization. Impression/Plan: Tolerating treatment well with expected side effects. Continue treatment as planned. CPT: 51895 Signed by: Dr. Edmundo Felix>02/04/2020 4:04:07 PM <<Signature on File>>
--- NOTE | 2020-02-10 16:37 | ONCRAD TMN_ITS ---
Radiation Oncology Weekly Treatment Management Patient: Julius Blake MR#: [id number] : 1945> Age: 74> Sex: Male Dictated by: Dr. Edmundo Felix Date of Service: 02/10/2020 Referring Physician(s) : Eliud Bob M.D. Primary Diagnosis: C82.21 - Follicular lymphoma grade III, unspecified, lymph nodes of head, face, and neck, Diagnosed 10/17/2019 (Active) Stage IIA, II, A Radiotherapy to date: Course: HN 24Gy, Treatment Site: HN 24Gy, Ref. ID: [id number], Energy: 15X/6X, Dose/Fx (cGy): 200, #Fx: , Dose Correction (cGy): 0, Total Dose (cGy): 2,000, Start Date: 01/28/2020, Elapsed Days: 13 Current Complaints/Interval History: He is doing well on treatment. He is eating well. He notes a small inner left lower lip ulcer. He had a similar event during chemotherapy. He is treating this with symptomatic relief with salt and soda gargles. Constitutional Complains of mild fatigue. Complains of change in weight weight is up 7 lbs. since last OTV. Denies lack of appetite, fever and night sweats. ENMT Complains of stomatitis on the lower lip and altered taste with certain foods. Denies dysphagia and mouth dryness. Neck Denies neck pain. Integumentary Has no redness to the neck Cardiovascular Complains of edema in the right leg. Current Medications: Accu-Chek Sarah Plus, acetaminophen, amiodarone HCl, benicar, cyclophosphamide, dexamethasone Sodium Phosphate, diphenhydrAMINE HCl, dOXOrubicin HCl, emend, hydrALAZINE HCl, hYDROcodone-Acetaminophen, hYDROcodone-Acetaminophen, lactulose, levemir Flexpen, lORazepam, lORazepam, lyrica, novoLIN 70/30, palonosetron HCl, predniSONE, prochlorperazine Maleate, promethazine HCl, protonix, riTUXimab, senna S, simvastatin, sodium Chloride, synthroid, vinCRIStine Sulfate, vitamin D. Allergies: No Known Allergies Vital Signs: Performed on 02/10/2020 3:57 PM BMI - 41.236 kg/m2 (high), Height - 68.00 in, Weight - 271.2 lbs, Temperature - 97.4 f, Pulse - 61, Respiration - 18, O2 Sat - 96 %, Pain - 0 and BP - 154/ 83 mm(hg)(high/). Physical Exam: Appears stable, no skin erythema or desquamation. Mucosal surface of the left lower inner lip reveals an aphthous ulcer with no evidence for candidiasis. Performance Status: 2 - Ambulatory/capable of all self-care, unable to perform any work activities. Up and about more than 50% of waking hours. (ECOG) Lab: None pending in Radiation Oncology. Test performed on 11/18/2019 12:01 PM TSH - 4.50 uiu/ml (high), Test performed on 12/22/2019 4:00 AM Manual Bands Abs - 1.6 10 3/cmm (high), Manual Monocytes Abs - 1.3 10 3/cmm (high), Test performed on 01/20/2020 10:20 AM Cr Clearance (Est) - 50.7000 ml/min (low) and LDH (Total) - 344 u/l (high). Imaging: No new diagnostic imaging was performed since the last weekly treatment visit. All radiation therapy related imaging (including but not limited to kV, MV, and CBCT generated images) was reviewed. Appropriate changes, if any, were made to assure accurate target localization. Impression/Plan: Tolerating treatment well with expected side effects. Continue treatment as planned. His mucosal oral cavity ulceration is not radiation related and should symptomatically improved with salt and soda gargles without other intervention. He will complete his course of treatment on February 12, 2020 CPT: 30470 Signed by: Dr. Edmundo Felix>02/10/2020 4:35:09 PM <<Signature on File>>
== END 2020-02-12 09:00 | disposition home or self-care (01) ==
LOC: ONCMED 06:50
PROVIDERS: Family Provider Nurse Practitioner Family; PCP Nurse Practitioner Family; Visit Provider Radiology Radiation Oncology
DX: Z51.0 Encounter for antineoplastic radiation therapy (principal); C82.21 Follicular lymphoma grade III, unspecified, lymph nodes of head, face, and neck; K13.79 Other lesions of oral mucosa; T45.1X5A Adverse effect of antineoplastic and immunosuppressive drugs, initial encounter; Z79.899 Other long term (current) drug therapy
CPT/HCPCS: 77336; 77387; 77412

== ENCOUNTER 2020-02-17 07:47 | Outpatient (CLI) | payer MEDICARE, SELFPAY | END 2020-02-17 07:48 | disposition home or self-care (01) | LOC: WOUND 07:48 | PROVIDERS: Family Provider Nurse Practitioner Family; PCP Nurse Practitioner Family; Visit Provider Thoracic Surgery (Cardiothoracic Vascular Surgery) | DX: Z09 Encounter for follow-up examination after completed treatment for conditions other than malignant neoplasm (principal) | CPT/HCPCS: 99212 ==

== ENCOUNTER → 2020-03-02 14:41 | Outpatient (BNVA) | payer MEDICARE, SELFPAY | PROVIDERS: Family Provider Nurse Practitioner Family; PCP Nurse Practitioner Family; Visit Provider Nurse Practitioner Family | DX: R60.0 Localized edema (principal) | CPT/HCPCS: 80053 ==

== ENCOUNTER 2020-03-23 09:35 | Outpatient (CLI) | payer MEDICARE, SELFPAY ==
[2020-03-23 10:33] LABS: Blood Urea Nitrogen 59 mg/dL (8-23)
== END 2020-03-23 09:36 | disposition home or self-care (01) ==
LOC: RADWPI 09:39
PROVIDERS: Family Provider Nurse Practitioner Family; PCP Nurse Practitioner Family; Visit Provider Internal Medicine Cardiovascular Disease
DX: I65.23 Occlusion and stenosis of bilateral carotid arteries (principal)
CPT/HCPCS: 70498; 82565; 84520

== ENCOUNTER 2020-04-05 08:35 | Outpatient (CLI) | payer MEDICARE, SELFPAY ==
--- NOTE | 2020-04-05 08:47 | CT_ITS ---
WS: [id number] CTA NECK TECHNIQUE: Contrast enhanced CTA of the neck with coronal and sagittal reformatted images and maximum intensity projection (MIP) images. NASCET criteria utilized. CLINICAL INFORMATION: SEVERE CAROTID ARTERY STENOSIS COMPARISON: CTA 3 25,019 DLP: 1011.[address] scans at [facility] use at least one of these dose optimization techniques: automat ed exposure control; mA and/or kV adjustment per patient size (includes targeted exams where dose is matched to clinical indication); or iterative reconstruction. FINDINGS: RIGHT: Right common carotid artery is patent. No significant right ICA stenosis. ICA is patent to the skull base. LEFT: Left common carotid artery is patent. Moderate calcified atheromatous disease left carotid bulb extending into the ICA. Left ICA stenosis measures 50-55% unchanged from previous. Codominant and patent vertebral arteries. Proximal basilar artery is patent. Moderate cavernous carot id calcification. Hypoplastic left A1. Calcified granuloma right upper lung. Sternotomy. Paranasal sinuses and mastoid air cells are well aerated. Normal posterior nasopharynx. N ormal parapharyngeal fat. Disc osteophyte complex worse at C3-C4 unchanged. CT/CT angio neck 79134 IMPRESSION: 1. No significant right ICA stenosis. 2. Left proximal ICA stenosis measures approximately 50-55% unchanged from pre vious. 3. Codominant and patent vertebral arteries bilaterally. 4. Proximal visualized [place] is unremarkable.
[2020-04-05] MEDS: iodixanol 320 mg/mL 100mL Btl IV (09:29)
[2020-04-05 09:37] LABS: Blood Urea Nitrogen 50 mg/dL (8-23)
== END 2020-04-05 08:36 | disposition home or self-care (01) ==
LOC: RADWPI 08:39
PROVIDERS: Family Provider Nurse Practitioner Family; PCP Nurse Practitioner Family; Visit Provider Internal Medicine Cardiovascular Disease
DX: I65.22 Occlusion and stenosis of left carotid artery (principal)
CPT/HCPCS: 70498; 82565; 84520; Q9967

== ENCOUNTER → 2020-04-06 09:15 | Outpatient (BNVA) | payer MEDICARE, SELFPAY | PROVIDERS: Family Provider Nurse Practitioner Family; PCP Nurse Practitioner Family; Visit Provider Nurse Practitioner Family | DX: R52 Pain, unspecified (principal); M25.659 Stiffness of unspecified hip, not elsewhere classified; Z79.899 Other long term (current) drug therapy; I10 Essential (primary) hypertension; D64.9 Anemia, unspecified; E11.9 Type 2 diabetes mellitus without complications; E55.9 Vitamin D deficiency, unspecified | CPT/HCPCS: 73502; 80053; 80061; 82306; 83036; 84439; 84443; 85025 ==

== ENCOUNTER → 2020-05-13 09:10 | Outpatient (BNVA) | payer MEDICARE, SELFPAY | PROVIDERS: Family Provider Nurse Practitioner Family; PCP Nurse Practitioner Family; Visit Provider Nurse Practitioner Family | DX: R79.9 Abnormal finding of blood chemistry, unspecified (principal) | CPT/HCPCS: 80053 ==

== ENCOUNTER → 2020-11-22 12:20 | Outpatient (BNVA) | payer MEDICARE, SELFPAY | PROVIDERS: Family Provider Nurse Practitioner Family; PCP Nurse Practitioner Family; Visit Provider Internal Medicine Cardiovascular Disease | DX: I65.23 Occlusion and stenosis of bilateral carotid arteries (principal); I50.33 Acute on chronic diastolic (congestive) heart failure; R06.02 Shortness of breath; I11.0 Hypertensive heart disease with heart failure | CPT/HCPCS: 80048; 83880 ==

== ENCOUNTER → 2020-12-01 09:08 | Outpatient (BNVA) | payer MEDICARE, SELFPAY | PROVIDERS: Family Provider Nurse Practitioner Family; PCP Nurse Practitioner Family; Visit Provider Internal Medicine Cardiovascular Disease | DX: R79.89 Other specified abnormal findings of blood chemistry (principal); R79.9 Abnormal finding of blood chemistry, unspecified | CPT/HCPCS: 80048; 83880 ==

== ENCOUNTER → 2021-01-03 10:07 | Outpatient (BNVA) | payer MEDICARE, SELFPAY | PROVIDERS: Family Provider Nurse Practitioner Family; PCP Nurse Practitioner Family; Visit Provider Internal Medicine Cardiovascular Disease | DX: N19 Unspecified kidney failure (principal); R06.02 Shortness of breath; E55.9 Vitamin D deficiency, unspecified; E11.65 Type 2 diabetes mellitus with hyperglycemia; E78.5 Hyperlipidemia, unspecified; I10 Essential (primary) hypertension; R60.9 Edema, unspecified; R79.9 Abnormal finding of blood chemistry, unspecified; I25.10 Atherosclerotic heart disease of native coronary artery without angina pectoris | CPT/HCPCS: 80048; 83880 ==

== ENCOUNTER 2021-01-10 13:34 | Outpatient (CLI) | payer MEDICARE, SELFPAY ==
[2021-01-10 14:17] LABS: Urine Appearance Clear (CLEAR); Urine Color Straw (Yellow)
[2021-01-10 14:18] LABS: Bilirubin Urine Neg (Negative); Blood Urine Neg (Negative); Glucose Urine UA Norm (Normal); Ketones Urine Negative (Negative); Leukocyte Esterase Urine Negative (Negative); Nitrate Urine Negative (Negative); Protein Urine Neg (Negative); Specific Gravity, Urine 1.005 (1.005-1.030); Urobilinogen Urine Norm (Negative); pH Urine 6.5 (5-7)
[2021-01-10 14:22] LABS: Bacteria Urine TRACE /hpf; RBC Urine RARE /hpf (0-2); Squamous Epithelial Cell Urine 0-4 /hpf (0-5); WBC Urine RARE /hpf (0-5)
[2021-01-10 14:23] LABS: Add Urine Culture? No
[2021-01-10 14:24] LABS: Albumin Level 4.2 g/dL (3.5-5.2); Anion Gap 18.7 (5-19); Blood Urea Nitrogen 62 mg/dL (8-23); Calcium 8.9 mg/dL (8.5-10.5); Carbon Dioxide 25 mmol/L (22-29); Chloride 97 mmol/L (98-107); Glucose 157 mg/dL (65-115); Phosphorus 4.5 mg/dL (2.5-4.5); Potassium 4.7 mmol/L (3.5-5.1); Sodium 136 mmol/L (136-145)
[2021-01-10 14:45] LABS: Creatinine Urine, Random 31 mg/dL (39-259)
[2021-01-10 14:58] LABS: Microalbum Creatinine Ratio Ur 32 mg/dL (0-20); Microalbumin Random Urine 1 ug/dL (0-20)
== END 2021-01-10 13:35 | disposition home or self-care (01) ==
PROVIDERS: PCP Nurse Practitioner Family; Visit Provider Internal Medicine Nephrology
DX: N18.4 Chronic kidney disease, stage 4 (severe) (principal)
CPT/HCPCS: 36415; 80069; 81001; 82044

== ENCOUNTER → 2021-01-12 09:36 | Outpatient (BNVA) | payer MEDICARE, SELFPAY | PROVIDERS: PCP Nurse Practitioner Family; Visit Provider Nurse Practitioner Family | DX: E11.65 Type 2 diabetes mellitus with hyperglycemia (principal); E78.5 Hyperlipidemia, unspecified; I10 Essential (primary) hypertension | CPT/HCPCS: 80053; 80061; 83036 ==

== ENCOUNTER → 2021-01-18 10:09 | Outpatient (BNVA) | payer MEDICARE, SELFPAY | PROVIDERS: PCP Nurse Practitioner Family; Visit Provider Internal Medicine Cardiovascular Disease | DX: N18.4 Chronic kidney disease, stage 4 (severe) (principal); R79.9 Abnormal finding of blood chemistry, unspecified; R79.89 Other specified abnormal findings of blood chemistry; I25.10 Atherosclerotic heart disease of native coronary artery without angina pectoris; R60.9 Edema, unspecified; R60.0 Localized edema; E11.65 Type 2 diabetes mellitus with hyperglycemia; I48.20 Chronic atrial fibrillation, unspecified; R06.02 Shortness of breath; I65.23 Occlusion and stenosis of bilateral carotid arteries; I35.8 Other nonrheumatic aortic valve disorders | CPT/HCPCS: 80048; 83880 ==

== ENCOUNTER 2021-02-03 06:54 | Outpatient (CLI) | payer MEDICARE, SELFPAY ==
--- NOTE | 2021-02-03 07:05 | US_ITS ---
WS: [id number] ULTRASOUND RENAL TECHNIQUE: Ultrasound examination of both kidneys. CLINICAL INFORMATION: CHRONIC KIDNEY DISEASE STAGE 4 COMPARISON: None. FINDINGS: Technically difficult examination due to body habitus. RIGHT: Right kidney is normal in size and appearance. Echogenicity: Normal. Cortical thickness: 1.2 cm; Normal. Hydronephrosis: None. Perinephric fluid: None. Right kidney measures: 9.3 cm x 3.6 cm x 4.5 cm. LEFT: Left kidney is normal in size and appearance. Echogenicity: Normal. Cortical thickness: 1.0 cm; Normal. Hydronephrosis: None. Perinephric fluid: None. Left kidney measures: 9.9 cm x 4.4 cm x 5.8 cm. Aorta not well visualized. Bladder decompressed. US/US renal BI* [id number] IMPRESSION: Normal renal ultrasound
== END 2021-02-03 06:55 | disposition home or self-care (01) ==
LOC: RAD 06:57
PROVIDERS: PCP Nurse Practitioner Family; Visit Provider Internal Medicine Nephrology
DX: N18.4 Chronic kidney disease, stage 4 (severe) (principal)
CPT/HCPCS: 76770

== ENCOUNTER 2021-02-23 08:03 | Outpatient (CLI) | payer MEDICARE, SELFPAY ==
[2021-02-23 08:57] LABS: Albumin Level 3.8 g/dL (3.5-5.2); Anion Gap 13.6 (5-19); Blood Urea Nitrogen 43 mg/dL (8-23); Calcium 8.5 mg/dL (8.5-10.5); Carbon Dioxide 26 mmol/L (22-29); Chloride 98 mmol/L (98-107); Glucose 249 mg/dL (65-115); Phosphorus 3.1 mg/dL (2.5-4.5); Potassium 4.6 mmol/L (3.5-5.1); Sodium 133 mmol/L (136-145)
== END 2021-02-23 08:04 | disposition home or self-care (01) ==
LOC: LAB 08:09
PROVIDERS: PCP Nurse Practitioner Family; Visit Provider Internal Medicine Nephrology
DX: N18.4 Chronic kidney disease, stage 4 (severe) (principal)
CPT/HCPCS: 80069

== ENCOUNTER → 2021-05-02 08:54 | Outpatient (BNVA) | payer MEDICARE, SELFPAY | PROVIDERS: PCP Nurse Practitioner Family; Visit Provider Internal Medicine Cardiovascular Disease | DX: N19 Unspecified kidney failure (principal); R79.9 Abnormal finding of blood chemistry, unspecified; I10 Essential (primary) hypertension; I25.10 Atherosclerotic heart disease of native coronary artery without angina pectoris; R06.02 Shortness of breath; R60.9 Edema, unspecified | CPT/HCPCS: 80048; 83880 ==

== ENCOUNTER → 2021-05-09 12:04 | Outpatient (BNVA) | payer MEDICARE, SELFPAY | PROVIDERS: PCP Nurse Practitioner Family; Visit Provider Internal Medicine Cardiovascular Disease | DX: I11.0 Hypertensive heart disease with heart failure (principal); I50.33 Acute on chronic diastolic (congestive) heart failure; R06.02 Shortness of breath | CPT/HCPCS: 80048; 83880 ==

== ENCOUNTER 2021-06-16 07:25 | Outpatient (CLI) | payer MEDICARE, SELFPAY ==
--- NOTE | 2021-06-16 07:39 | ECG_ITS ---
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 Interpretive Statements NAME OF STUDY: LEXISCAN SESTAMIBI STRESS TEST INDICATION: Chest Pain, PROCEDURE: At the baseline, the EKG revealed normal sinus rhythm with a poor R wave progression. Nonspecific ST-T changes in the inferolateral leads. The baseline blood pressure was 114/41 mm Hg with a heart rate of 64 beats/min. Lexiscan was infused over a period of 20 seconds. A total of 0.4 milligrams of Lexiscan was infused. The stress phase was continued for a total of 5 minutes. Heart rate at the end of the stress phase was 65 with a blood pressure 104/41. The EKG at the peak infusion revealed no significant changes. Sestamibi was injected 20 seconds after the Lexiscan infusion. Blood pressure at the end of the recovery phase was 116/42 with a heart rate of 66 per minute. CONCLUSION: 1. No significant EKG changes with the LexiScan infusion 2. No LexiScan induced chest pain or cardiac arrhythmia 3. Normal blood pressure and heart rate response 4. Sestamibi/sestamibi perfusion scan pending; see separate report. Electronically Signed On 06-23-2021 0:29:29 CDT by Migdalia Gonzales M.D. [email or web address]
--- NOTE | 2021-06-16 07:40 | NMCV_ITS ---
NM patricio perf SPECT r/s* [id number] Julius Blake Age: 75 Gender: M : 1945 Exam Date: 06/16/2021 07:40 Ordering Phys: Migdalia Gonzales MD ([email or web address]) Technologist: LOLLY Ch Exam Location: [facility] Indications: SHORTNESS OF BREATH STRESS TEST Please see separate stress test report in [facility] for full findings IMAGE PROTOCOL Rest/Stress 1 Lexiscan Day Radiopharmaceutical Dose (mCi) Administration Site Administered by Rest: Tc-99m 10.7 IV LOLLY Ch Sestamibi Stress:Tc-99m 32.5 IV LOLLY Ch Sestamibi Rest: 16-Jun-2021 60 Discovery 630 Stress: 16-Jun-2021 30 Discovery 630 0.4mg Lexiscan. Supine position only as patient was unable to lay prone. SPECT RESULTS Technical Quality: Excellent Raw Data Analysis: Normal Image Corrections: No attenuation or motion correction applied Summed Stress Score: 12 Summed Rest Score: 9 Summed Difference Score: 3 PERFUSION FINDINGS Moderate to large area of moderately decreased tracer uptake in the basal and mid anterolateral, basal and mid inferolateral, apical lateral and apical anterior segments. Some reversibility was noted in the basal anterolateral, basal inferolateral and apical anterior regions. FUNCTIONAL RESULTS (calculated via Gated SPECT) Stress Image LV EF (%): 84 Stress EDV (mL):110 TID: 0.92 Stress ESV (mL):18 FUNCTIONAL FINDINGS: Segmental wall motion analysis revealed no gross wall motion abnormalities. IMPRESSIONS 1. Myocardial perfusion imaging revealing moderate to large area of moderately decreased tracer uptake in the anterolateral, inferolateral, apical anterior and apical lateral regions with some reversibility in the basal inferolateral, anterolateral and apical anterior regions, suggesting myocardial scarring in the distribution of the left circumflex artery and the left anterior descending artery with small areas of tyler-infarction ischemia . 2. Normal LV ejection fraction of 84%. 3. LV wall motion analysis revealing no gross wall motion abnormalities. 4. Normal LV volume. No similar previous studies are available for comparison Dr Migdalia Gonzales MD [facility] (Electronically Signed) Final Date: 16 June 2021 23:31 S
[2021-06-16 07:53] VITALS: BMI 39.5
[2021-06-16] MEDS: regadenoson 0.4 Mg/5 ml Syringe IVP (09:23)
[2021-06-16 09:47] VITALS: BP 106/42; PULSE 68
== END 2021-06-16 07:26 | disposition home or self-care (01) ==
LOC: CDL 07:28
PROVIDERS: PCP Nurse Practitioner Family; Visit Provider Internal Medicine Cardiovascular Disease
DX: R07.9 Chest pain, unspecified (principal)
CPT/HCPCS: 78452; 93017; A9500; J2785

== ENCOUNTER → 2021-07-13 08:51 | Outpatient (BNVA) | payer MEDICARE, SELFPAY | PROVIDERS: PCP Nurse Practitioner Family; Visit Provider Nurse Practitioner Family | DX: E11.65 Type 2 diabetes mellitus with hyperglycemia (principal); N18.4 Chronic kidney disease, stage 4 (severe); Z68.39 Body mass index [BMI] 39.0-39.9, adult; R60.9 Edema, unspecified; E03.9 Hypothyroidism, unspecified; R79.9 Abnormal finding of blood chemistry, unspecified; E11.22 Type 2 diabetes mellitus with diabetic chronic kidney disease; I12.9 Hypertensive chronic kidney disease with stage 1 through stage 4 chronic kidney disease, or unspecified chronic kidney disease | CPT/HCPCS: 80053; 80061; 83036 ==

== ENCOUNTER 2021-08-22 08:42 | Outpatient (CLI) | payer MEDICARE, SELFPAY ==
[2021-08-22 09:29] LABS: Basophils # 0.1 10^3/uL (0.0-0.1); Basophils % 1.5 %; Eosinophils # 0.4 10^3/uL (0.0-0.8); Eosinophils % 6.5 %; Hematocrit 31.4 % (42.0-52.0); Hemoglobin 10.1 g/dL (11.7-16.6); Lymphocytes # 1.8 10^3/uL (0.8-4.8); Lymphocytes % 28.7 %; Mean Corpuscular HGB Conc 32.2 g/dL (30.0-36.0); Mean Corpuscular Volume 102.6 fl (80-94); Mean Platelet Volume 9.9 fL (7.4-10.4); Monocytes # 0.9 10^3/uL (0.2-0.9); Monocytes % 14.4 %; Neutrophils # 2.99 10^3/uL (1.8-7.7); Neutrophils % 48.6 %; Nucleated Red Blood Cells % 0 %; Platelet Count 205 10^3/cmm (130-400); Red Blood Count 3.06 10^6/uL (4.1-5.3); Red Cell Distribution Width 13.5 % (12.1-15.1); White Blood Count 6.2 10^3/uL (4.0-10.0)
[2021-08-22 10:10] LABS: Calcium 8.7 mg/dL (8.5-10.5)
[2021-08-22 10:12] LABS: Albumin Level 3.9 g/dL (3.5-5.2); Anion Gap 16.5 (5-19); Blood Urea Nitrogen 41 mg/dL (8-23); Calcium 8.6 mg/dL (8.5-10.5); Carbon Dioxide 26 mmol/L (22-29); Chloride 100 mmol/L (98-107); Glucose 80 mg/dL (65-115); Phosphorus 2.2 mg/dL (2.5-4.5); Potassium 4.5 mmol/L (3.5-5.1); Sodium 138 mmol/L (136-145)
[2021-08-22 10:43] LABS: Creatinine Urine, Random 46 mg/dL (39-259); Microalbumin Random Urine 6 ug/dL (0-20)
[2021-08-22 10:49] LABS: Microalbum Creatinine Ratio Ur 130 mg/dL (0-20)
== END 2021-08-22 08:43 | disposition home or self-care (01) ==
LOC: LAB 08:49
PROVIDERS: PCP Nurse Practitioner Family; Visit Provider Internal Medicine Nephrology
DX: N18.32 Chronic kidney disease, stage 3b (principal)
CPT/HCPCS: 80069; 82044; 82310; 83970; 85025

== ENCOUNTER 2021-09-02 08:21 | Outpatient (CLI) | payer MEDICARE, SELFPAY ==
[2021-09-02 08:54] LABS: Basophils # 0.1 10^3/uL (0.0-0.1); Basophils % 1.6 %; Eosinophils # 0.6 10^3/uL (0.0-0.8); Eosinophils % 8.3 %; Hematocrit 32.5 % (42.0-52.0); Hemoglobin 10.2 g/dL (11.7-16.6); Lymphocytes # 2.3 10^3/uL (0.8-4.8); Lymphocytes % 34.3 %; Mean Corpuscular HGB Conc 31.4 g/dL (30.0-36.0); Mean Corpuscular Hemoglobin 32.8 pg (28.0-34.0); Mean Corpuscular Volume 104.5 fl (80-94); Mean Platelet Volume 9.7 fL (7.4-10.4); Monocytes % 14.1 %; Neutrophils % 41.4 %; Nucleated Red Blood Cells % 0 %; Platelet Count 188 10^3/cmm (130-400); Red Blood Count 3.11 10^6/uL (4.1-5.3); Red Cell Distribution Width 13.3 % (12.1-15.1); White Blood Count 6.8 10^3/uL (4.0-10.0)
[2021-09-02 09:15] LABS: Alanine Aminotransferase 23 U/L (0-41); Albumin Level 3.9 g/dL (3.5-5.2); Alkaline Phosphatase 70 IU/L (40-130); Anion Gap 18.6 (5-19); Aspartate Amino Transferase 27 U/L (0-40); Blood Urea Nitrogen 48 mg/dL (8-23); Calcium 8.7 mg/dL (8.5-10.5); Carbon Dioxide 25 mmol/L (22-29); Chloride 99 mmol/L (98-107); Globulin 2.4 g/dL (1.3-4.6); Glucose 144 mg/dL (65-115); Lactate Dehydrogenase 227 U/L (135-225); Osmolality Calculated 301 mOsm/kg (285-295); Potassium 4.6 mmol/L (3.5-5.1); Sodium 138 mmol/L (136-145); Total Bilirubin 0.3 mg/dL (0.15-1.2); Total Protein 6.3 g/dL (6.6-8.7)
[2021-09-02 11:13] LABS: Reticulocyte % 1.5 % (0.5-2.0)
[2021-09-02 11:27] LABS: Iron 90 ug/dL (59-158); Percent Saturation 30.2 % (20-50); Thyroid Stimulating Hormone 0.04 uIU/mL (0.27-4.20); Total Iron Binding Capacity 298 mcg/dl; Unsaturated Iron Binding 208 ug/dL (112-347)
[2021-09-02 11:39] LABS: Vitamin B12 631 pg/mL (232-1245)
--- NOTE | 2021-09-02 16:04 | ONC FU_ITS ---
Dr. Bob Patient Follow-Up Note Patient: Julius Blake Unit #: [id number]: 1945 Dicatated By: Eliud Bob M.D.Date of Visit:Sep 02, 2021 Onc Med Follow-up/Prog Note Chief Complaint: Lymphoma. History of Present Illness: This is a 76 year-old man with follicular lymphoma, grade 3B, involving a left posterior cervical lymph node. He had presented with a knot on the left side of his neck, first noticed sometime in August. He was referred to Dr. Sanchez. A noncontrast neck CT on 09/09/2019 showed level 1A submental lymph nodes measuring up to 13 mm, level 1B submandibular lymph nodes, including a node on the left side measuring 17 mm. A level 2 jugular lymph node measured up to 2 cm, and smaller level 2 lymph nodes on the left side measured up to 12 mm. Level 3 nodes on the left side measured up to 13 mm. There were no enlarged lymph nodes noted in the superior mediastinum. On 09/15/2019 he underwent excisional biopsy of a left cervical lymph node. Pathology was nondiagnostic. He then underwent repeat left cervical lymph node biopsy on 10/06/2019. Pathology showed follicular lymphoma, grade 3B. Also reported was a focal proliferation of Langerhans' cells, and a component of Langerhans' cell neoplasm was not excluded. Furthermore, there was noted to be a discrepancy between the flow cytometry studies and the histologic findings. As such, a prognostic profile by FISH was requested to rule out a double hit lymphoma, and that came back negative for BL-6 and MYC rearrangement. His staging PET/CT had to be delayed because of insurance issues. It was eventually completed on 11/11/2019. It showed an area of hypermetabolic activity involving the nasopharyngeal soft tissue with a maximum SUV 6.09 on the right and SUV 4.34 on the left. There was otherwise just a few shotty lymph nodes noted within the left lower cervical chain, maximum SUV 2.43, and a few shotty left cervical chain lymph nodes at the level of the thyroid cartilage, maximum SUV 3.66. There was no suspicious uptake noted within the chest, abdomen, or pelvis. With those findings, he was recommended to undergo treatment with short course R-CHOP chemotherapy followed by involved field radiation. His baseline echocardiogram showed normal left ventricular systolic function with ejection fraction 74%. His other medical illnesses include hypertension, hyperlipidemia, type 2 diabetes, chronic kidney disease, coronary artery disease, atrial fibrillation, and carotid stenosis. He has had previous coronary artery bypass surgery and right carotid endarterectomy. He also has hypothyroidism and degenerative arthritis. He has a history of smoking 1 pack of cigarettes daily, but he quit smoking back in 1982. His since then chewed tobacco. INTERIM HISTORY: He began cycle 1 of R-CHOP on 11/18/2019. He was given first cycle prophylaxis with Neulasta. He did have some fatigue with the chemotherapy, and he also had significant musculoskeletal pain associated with the Neulasta. His blood counts, though, remained adequate, and overall he tolerated it pretty well. He continued with cycle 2 on 12/09/2019. At that point he had developed some erythema at his Port-A-Cath site, and it subsequently opened and drained. Culture grew Enterococcus faecalis. He underwent removal of the Port-A-Cath on 12/23/2019. He was given antibiotic coverage with Augmentin. He then underwent placement of a PICC line and he continued with cycle 3 of R-CHOP on 12/30/3019. Restaging PET/CT on 01/07/2020 showed findings consistent with a complete response, [place] 1. That day he developed weakness, lethargy, and mental status changes, and he was admitted to the hospital with febrile neutropenia. He recovered uneventfully on broad spectrum antibiotic coverage. His blood cultures were negative. He was discharged home on Levaquin. He was seen for a follow-up visit on 01/13/2020. At that point he was showing gradual recovery. He still had an open wound at the Port-A-Cath site, for which he was referred to wound care clinic. It resolved on antibiotic therapy. Given the severity of that illness, I opted not to attempt any further chemotherapy. He then underwent involved field consolidation radiation, completed on 02/12/2020 to a total dose of 2400 cGy administered in 12 fractions. He tolerated the radiation well. For some reason he did not get scheduled for a follow-up visit here, so I am now seeing him for the first time since he completed the radiation. His main complaint is that he never got his energy back after the chemotherapy. He has weakness particularly in his legs, which is persisted despite physical therapy and home exercises. He does try and walk as much as he can. ECOG score is 2. Appetite is variable, but not very good. His weight is down 7 pounds compared to December 2019. He does not have fever or night sweats. He has not had sore mouth or throat, but he has had fairly persistent hoarseness and he also complains of having persistent cough for the past 4 weeks. He does get short of breath if he tries to walk very far. He does not complain of chest pain. He did have a sestamibi stress test in June. It showed a moderate to large area of moderately decreased tracer uptake in the basal and mid anterolateral, basal and mid inferolateral, apical lateral and apical anterior segments, with normal ejection fraction at 84% and with no gross wall motion abnormalities. He currently has no GI or complaints. He has no significant joint or bone pain. He occasionally wakes up with a bad headache, but it does not last. He has no numbness/paresthesia or other focal neurologic symptoms. Medications: Amiodarone HCl 1 Tablet (of 100 mg) Tablet Oral q 24 hours, Benicar 1 Tablet (of 40 mg) Oral daily, hydrALAZINE HCl 2 Tablet (of 50 mg) Oral t.i.d., Levemir Flexpen 32 Units Subcutaneous at bedtime, NovoLIN 70/30 25 Units (of (70-30) 100 Units/mL) Subcutaneous b.i.d., Protonix 1 Capsule (of 40 mg) Tablet, enteric coated Oral daily, Simvastatin 1 Tablet (of 40 mg) Oral daily, Synthroid 1 Tablet (of 150 mcg) Oral daily Allergies: No Known Allergies. Vital Signs: Performed on Sep 02, 2021 10:24 Height - 68.00 in Weight - 257.6 lbs (LOW) BSA - 2.28 sq.m BMI - 39.17 (HIGH) Temperature - 96.4 F (LOW) Pulse - 66 /min Respiration - 18 /min BP - 161/67 mm(hg) (HIGH) O2 Sat - 97 % Pain - 0 Fatigue - 5 Physical Examination: Constitutional - He appears generally weak, Eyes - Sclerae nonicteric. Conjunctivae clear, ENMT - No lesions noted in the oral cavity, Hematologic/Lymphatic - No cervical, clavicular, or axillary adenopathy, Respiratory - Lungs sound clear, Cardiovascular - Heart rhythm is regular. There is a III/ systolic murmur. There is no gallop or rub noted, Abdomen - Moderately distended but soft. Liver and spleen are not enlarged. There is no abdominal mass or ascites noted and there is no inguinal adenopathy, Extremities - Slight edema. He has chronic purpura, Neurologic - No focal neurologic deficits noted. Lab/Imaging: CBC shows hemoglobin 10.2 g, white blood cell count 6800, and platelet count 188,000. Comprehensive metabolic profile shows elevated BUN and creatinine at 48 and 2.2 mg/dL. The bilirubin and liver enzymes are normal. LDH is slightly elevated at 227 U/L. Problem List: 1. Follicular lymphoma, grade 3B. The FISH prognostic profile was negative for double hit lymphoma. By clinical evaluation he appears to have stage II disease with involvement limited to the nasopharyngeal soft tissues and left cervical lymph nodes. 2. Hypertension. 3. Hyperlipidemia. 4. Type 2 diabetes. 5. Chronic kidney disease. 6. Coronary artery disease with previous coronary artery bypass. 7. Atrial fibrillation. 8. Carotid stenosis with previous right carotid endarterectomy. 9. Hypothyroidism. 10. Degenerative arthritis. Problems Addressed with this Encounter and Plan: 1. Patient with follicular lymphoma, grade 3B. The FISH prognostic profile was negative for double hit lymphoma. By clinical evaluation he appears to have stage II disease with involvement limited to the nasopharyngeal soft tissues and left cervical lymph nodes. He has chronic illness and generally poor performance status. With localized involvement, he was recommended undergo short course R-CHOP chemotherapy followed by involved field radiation. His baseline echocardiogram showed normal left ventricular function with ejection fraction at 74%. He began cycle 1 of R-CHOP on 11/18/2019. He tolerated tit pretty well. He continued with cycle 2 on 12/09/2019. The 2nd cycle was complicated by Port-A-Cath infection, requiring removal of the Port-A-Cath venous access device. He then continued with cycle 3 on 12/30/2019, administered via PICC line. Restaging PET/CT on 01/07/2020 showed findings consistent with complete response. However, that same day he developed increased weakness, lethargy, and mental status changes, and he was admitted to the hospital with febrile neutropenia. He improved on broad-spectrum antibiotic coverage. His blood cultures were negative. Due to that illness, I opted not to attempt any further chemotherapy. He was then given involved field consolidation radiation, completed on 02/12/2020 to a total dose of 2400 cGy administered in 12 fractions. He has since then continued to have weakness/fatigue, particularly in the lower extremities. At least some component of this does appear to be due to residual effects from the chemotherapy. He also has been having persistent cough and hoarseness. He will be scheduled for restaging CT scans of the neck and of the chest, abdomen, and pelvis. These will be noncontrast studies due to his chronic kidney disease. He will have further evaluation as indicated. 2. He is mildly anemic. He will have additional laboratory studies today to include reticulocyte count, serum iron studies, B12 level, and TSH level. Signed By: Eliud Bob M.D. <<Signature on File>>
== END 2021-09-02 08:22 | disposition home or self-care (01) ==
LOC: ONCMED 08:23
PROVIDERS: PCP Nurse Practitioner Family; Visit Provider Internal Medicine Medical Oncology
DX: C82.41 Follicular lymphoma grade IIIb, lymph nodes of head, face, and neck (principal); D64.9 Anemia, unspecified; E78.5 Hyperlipidemia, unspecified; I12.9 Hypertensive chronic kidney disease with stage 1 through stage 4 chronic kidney disease, or unspecified chronic kidney disease; E11.22 Type 2 diabetes mellitus with diabetic chronic kidney disease; N18.9 Chronic kidney disease, unspecified; I25.10 Atherosclerotic heart disease of native coronary artery without angina pectoris; I48.91 Unspecified atrial fibrillation; E03.9 Hypothyroidism, unspecified; F17.220 Nicotine dependence, chewing tobacco, uncomplicated; Z95.1 Presence of aortocoronary bypass graft; Z79.4 Long term (current) use of insulin; Z79.899 Other long term (current) drug therapy
CPT/HCPCS: 36415; 80053; 82607; 83540; 83550; 83615; 84443; 85025; 85045; 99214

== ENCOUNTER 2021-09-15 08:08 | Outpatient (CLI) | payer MEDICARE, SELFPAY ==
[2021-09-15 09:00] LABS: Albumin Level 3.8 g/dL (3.5-5.2); Blood Urea Nitrogen 47 mg/dL (8-23); Calcium 8.6 mg/dL (8.5-10.5); Carbon Dioxide 22 mmol/L (22-29); Chloride 102 mmol/L (98-107); Glucose 177 mg/dL (65-115); Phosphorus 3.1 mg/dL (2.5-4.5); Sodium 138 mmol/L (136-145)
== END 2021-09-15 08:09 | disposition home or self-care (01) ==
LOC: LAB 08:15
PROVIDERS: PCP Nurse Practitioner Family; Visit Provider Internal Medicine Nephrology
DX: N18.32 Chronic kidney disease, stage 3b (principal)
CPT/HCPCS: 36415; 80069

== ENCOUNTER 2021-09-26 08:17 | Outpatient (CLI) | payer MEDICARE, SELFPAY ==
--- NOTE | 2021-09-26 | CT_ITS ---
WS: [id number] CT scan of the neck. Additional two-dimensional coronal and sagittal reconstruction was performed. Clinical Data: LYMPHOMA Comparison: CT neck, 09/09/2019 DLP: 1228.[address] scans at [facility] use at least one of these dose optimization techniques: automated e xposure control; mA and/or kV adjustment per patient size (includes targeted exams where dose is matc hed to clinical indication); or iterative reconstruction. Findings: No lymphadenopathy is noted. There is postsurgical change and a small seroma on the right side of the neck unchanged. The salivary glands are unremarkable. There is no prevertebral soft tissue swelling. The larynx is symmetric. The thyroid gland shows no cysts or masses. The floor of the mouth and para pharyngeal spaces are normal. The oral cavity is unremarkable. . The cervical spine is unremarkable. The lung apices show no abnormalities. Midline sternotomy sutur es are present. No erosion of the skull or skull base is seen. CT/CT neck wo con [id number] Impression: 1. Negative for lymphadenopathy. 2. Negative CT scan of the neck.
--- NOTE | 2021-09-26 | CT_ITS ---
WS: [id number] CT scan of the chest Without IV contrast, CT scan of the abdomen and pelvis without IV contrast and with oral contrast. Additional two-dimensional coronal and sagittal reconstruction was performed. Clinical Data: LYMPHOMA Comparison: CT chest abdomen and pelvis, 01/08/2020. DLP: 2194.[address] scans at [facility] use at least one of these dose optimization techniques: automated e xposure control; mA and/or kV adjustment per patient size (includes targeted exams where dose is matc hed to clinical indication); or iterative reconstruction. Findings: Chest: No nodules, masses or effusions are seen. The heart size is normal with no pericardial effusion. There is calcification of the coronary arterie s and heart valves. Midline sternotomy sutures are present. No pneumonia or pneumothorax is seen. The pulmonary arterial system and thoracic aorta demonstrate no abnormalities or dilatations. There is no axillary or significant mediastinal adenopathy. 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 Abdomen/pelvis: The liver, spleen, adrenal glands and pancreas are normal. Gallstones are in the gallbladder. No The kidneys show equal bilateral contrast excretion with no cyst or masses. The abdominal aorta is normal in size with calcification in the wall. There is a small umbilical devin ia containing only fat. No appendicitis or diverticulitis is seen. Oral contrast is in the stomach and small bowel and there is no bowel dilatation. No abscess, adenopathy, ascites, mass, obstruction or free air is seen. The bladder is unremarkable. No inguinal hernia is seen. The bones of the lower thorax, lumbar spine, pelvis, and hips show no metastatic changes. 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 CT/CT chest abd pel wo con Impression: 1. Negative for acute cardiopulmonary disease. 2. Negative for acute intra-abdominal or pelvic disease.
[2021-09-26] MEDS: iohexol 300 mg/mL 50 mL Btl PO (10:25)
== END 2021-09-26 08:18 | disposition home or self-care (01) ==
PROVIDERS: PCP Nurse Practitioner Family; Visit Provider Internal Medicine Medical Oncology
DX: C82.21 Follicular lymphoma grade III, unspecified, lymph nodes of head, face, and neck (principal); R05.3 Chronic cough
CPT/HCPCS: 70490; 71250; 74176; Q9967

== ENCOUNTER 2021-10-12 13:43 | Outpatient (CLI) | payer MEDICARE, SELFPAY ==
--- NOTE | 2021-10-12 14:00 | USCV_ITS ---
Julius Blake Age: 76 Gender: M : 1945 Exam Date: 10/12/2021 14:29 Ordering Phys: Eliud Bob MD Technologist: Exam Location: [facility] – [place] Indication: MURMUR BP: 130 / 73 HR: 60 Rhythm: Sinus Technical Quality: Adequate MEASUREMENTS (Male / Female) Normal Values 2D ECHO LV Diastolic Diameter PLAX 3.2 cm 4.2 - 5.9 / 3.9 - 5.3 cm LV Systolic Diameter PLAX 2.0 cm IVS Diastolic Thickness 1.0 cm 0.6 - 1.0 / 0.6 - 0.9 cm IVS Systolic Thickness 1.3 cm LVPW Diastolic Thickness 1.1 cm 0.6 - 1.0 / 0.6 - 0.9 cm LVPW Systolic Thickness 1.4 cm LVOT Diameter 2.0 cm LV Ejection Fraction 2D Teich 69.3 % LV Ejection Fraction MOD 2C 63.1 % LV Ejection Fraction 2C AL 63.0 % LA Diameter 4.3 cm LA Width 4.7 cm LA Height 6.3 cm RA Width 4.6 cm RA Height 4.8 cm M-MODE Aortic Annulus Diameter 2.9 cm LA Ao Ratio MM 1.6 MV E Point Septal Separation 0.7 cm DOPPLER AV Peak Velocity 354.3 cm/s LVOT Peak Velocity 117.0 cm/s AV Area Cont Eq vti 0.9 cm squared AV Area Cont Eq pk 1.0 cm squared MV Area PHT 5.0 cm squared Mitral E to A Ratio 1.6 MV E' Velocity 71.5 cm/s Mitral E to MV E' Ratio 15.7 Mitral E to LV E' Lateral Ratio 13.9 Mitral E to LV E' Septal Ratio 18.2 TR Peak Velocity 208.3 cm/s TR Peak Gradient 17.4 mmHg TV Peak E Velocity 124.0 cm/s Right Atrial Pressure 3.0 mmHg Pulmonary Artery Systolic Pressu 20.4 mmHg PV Peak Velocity 101.0 cm/s FINDINGS Left Ventricle Normal left ventricular cavity size. Normal left ventricular systolic function. No regional wall motion abnormalities. Left ventricular ejection fraction is estimated at 65 %. Grade II/IV diastolic dysfunction, moderately elevated filling pressures. Right Ventricle The right ventricle is normal in size and function. Right Atrium The right atrium is normal in size. Left Atrium Moderately increased left atrial size. Mitral Valve Moderately thickened mitral valve. Moderate mitral annular calcification. No mitral valve stenosis. Mild mitral valve regurgitation. Aortic Valve Severe aortic valve calcification. Moderate aortic valve stenosis, mean gradient 23.1 mmHg, DEREK 0.94 cm squared. Mild aortic valve regurgitation. Tricuspid Valve Structurally normal tricuspid valve without significant stenosis or regurgitation. Pulmonary artery systolic pressure is normal. Pulmonic Valve Structurally normal pulmonic valve without significant stenosis. There is mild pulmonic regurgitation. Pericardium Normal pericardium without effusion. Aorta Normal ascending aorta dimension. CONCLUSIONS 1-Normal left ventricular cavity size. Normal left ventricular systolic function. No regional wall motion abnormalities. Left ventricular ejection fraction is estimated at 65 %. Grade II/IV diastolic dysfunction, moderately elevated filling pressures. 2-Severe aortic valve calcification. Moderate aortic valve stenosis, mean gradient 23.1 mmHg, DEREK 0.94 cm squared. Mild aortic valve regurgitation. 3-Moderately thickened mitral valve. Moderate mitral annular calcification. No mitral valve stenosis. Mild mitral valve regurgitation. 4-Structurally normal pulmonic valve without significant stenosis. There is mild pulmonic regurgitation. 5-There are no prior echocardiogram studies to compare. Mino Siegel MD (Electronically Signed) Final Date: 12 October 2021 21:45 S
== END 2021-10-12 13:44 | disposition home or self-care (01) ==
LOC: RAD 13:57
PROVIDERS: PCP Nurse Practitioner Family; Visit Provider Internal Medicine Medical Oncology
DX: Z79.899 Other long term (current) drug therapy (principal); R53.1 Weakness; R06.02 Shortness of breath; R01.1 Cardiac murmur, unspecified; I35.0 Nonrheumatic aortic (valve) stenosis; I34.0 Nonrheumatic mitral (valve) insufficiency
CPT/HCPCS: 93306

== ENCOUNTER → 2021-10-21 08:55 | Outpatient (BNVA) | payer MEDICARE, SELFPAY | PROVIDERS: PCP Nurse Practitioner Family; Visit Provider Nurse Practitioner Family | DX: E11.9 Type 2 diabetes mellitus without complications (principal); E03.9 Hypothyroidism, unspecified | CPT/HCPCS: 83036; 84443 ==

== ENCOUNTER → 2021-12-02 08:39 | Outpatient (BNVA) | payer MEDICARE, SELFPAY | PROVIDERS: PCP Nurse Practitioner Family; Visit Provider Nurse Practitioner Family | DX: E03.9 Hypothyroidism, unspecified (principal) | CPT/HCPCS: 84443 ==

== ENCOUNTER → 2022-01-31 08:29 | Outpatient (BNVA) | payer MEDICARE, SELFPAY | PROVIDERS: PCP Nurse Practitioner Family; Visit Provider Nurse Practitioner Family | DX: E03.9 Hypothyroidism, unspecified (principal) | CPT/HCPCS: 84443 ==

== ENCOUNTER → 2022-02-08 09:31 | Outpatient (BNVA) | payer MEDICARE, SELFPAY | PROVIDERS: PCP Nurse Practitioner Family; Visit Provider Internal Medicine Cardiovascular Disease | DX: I13.0 Hypertensive heart and chronic kidney disease with heart failure and stage 1 through stage 4 chronic kidney disease, or unspecified chronic kidney disease (principal); I50.32 Chronic diastolic (congestive) heart failure; I48.0 Paroxysmal atrial fibrillation; E03.9 Hypothyroidism, unspecified; E11.22 Type 2 diabetes mellitus with diabetic chronic kidney disease; N18.4 Chronic kidney disease, stage 4 (severe); Z79.4 Long term (current) use of insulin; I25.10 Atherosclerotic heart disease of native coronary artery without angina pectoris; I65.23 Occlusion and stenosis of bilateral carotid arteries; I35.8 Other nonrheumatic aortic valve disorders; E78.5 Hyperlipidemia, unspecified | CPT/HCPCS: 80048; 83880; 99214 ==

== ENCOUNTER 2022-03-08 06:49 | Outpatient (CLI) | payer MEDICARE, SELFPAY ==
[2022-03-08 07:35] LABS: NT Pro B Type Natriuretic Pept 837 pg/mL (0-450)
== END 2022-03-08 06:50 | disposition home or self-care (01) ==
LOC: LAB 06:53
PROVIDERS: Internal Medicine Cardiovascular Disease; PCP Nurse Practitioner Family; Visit Provider Internal Medicine Nephrology
DX: R06.02 Shortness of breath (principal); I25.10 Atherosclerotic heart disease of native coronary artery without angina pectoris
CPT/HCPCS: 36415; 83880

== ENCOUNTER 2022-03-15 08:16 | Outpatient (CLI) | payer MEDICARE, SELFPAY ==
[2022-03-15 09:01] LABS: Basophils # 0.1 10^3/uL (0.0-0.1); Eosinophils # 0.3 10^3/uL (0.0-0.8); Eosinophils % 4.9 %; Hematocrit 32.3 % (42.0-52.0); Lymphocytes # 1.5 10^3/uL (0.8-4.8); Lymphocytes % 25.9 %; Mean Corpuscular HGB Conc 34.1 g/dL (30.0-36.0); Mean Corpuscular Hemoglobin 33.8 pg (28.0-34.0); Mean Corpuscular Volume 99.4 fl (80-94); Mean Platelet Volume 10.1 fL (7.4-10.4); Monocytes # 0.8 10^3/uL (0.2-0.9); Monocytes % 13.3 %; Neutrophils % 54.7 %; Nucleated Red Blood Cells % 0 %; Platelet Count 195 10^3/cmm (130-400); Red Blood Count 3.25 10^6/uL (4.1-5.3); Red Cell Distribution Width 12.5 % (12.1-15.1); White Blood Count 5.9 10^3/uL (4.0-10.0)
[2022-03-15 09:25] LABS: Blood Urea Nitrogen 49 mg/dL (8-23); Calcium 9.2 mg/dL (8.5-10.5); Carbon Dioxide 27 mmol/L (22-29); Chloride 99 mmol/L (98-107); Glucose 132 mg/dL (65-115); Osmolality Calculated 295 mOsm/kg (285-295); Sodium 135 mmol/L (136-145)
[2022-03-15 09:27] LABS: Anion Gap 14.2 (5-19); Potassium 5.2 mmol/L (3.5-5.1)
[2022-03-15 09:29] LABS: Albumin Level 4.2 g/dL (3.5-5.2); Blood Urea Nitrogen 49 mg/dL (8-23); Calcium 9.4 mg/dL (8.5-10.5); Carbon Dioxide 27 mmol/L (22-29); Chloride 100 mmol/L (98-107); Glucose 132 mg/dL (65-115); Phosphorus 3.3 mg/dL (2.5-4.5); Sodium 136 mmol/L (136-145)
[2022-03-15 09:31] LABS: Creatinine Urine, Random 66 mg/dL (39-259); Microalbumin Random Urine 9 ug/dL (0-20)
[2022-03-15 09:32] LABS: Microalbum Creatinine Ratio Ur 136 mg/dL (0-20)
[2022-03-15 09:33] LABS: Anion Gap 14.2 (5-19); Potassium 5.2 mmol/L (3.5-5.1)
[2022-03-15 09:47] LABS: Parathyroid Hormone 66.3 pg/mL (15-65)
[2022-03-15 09:56] LABS: Calcium 9.6 mg/dL (8.5-10.5)
== END 2022-03-15 08:17 | disposition home or self-care (01) ==
LOC: LAB 08:19
PROVIDERS: Internal Medicine Cardiovascular Disease; PCP Nurse Practitioner Family; Visit Provider Internal Medicine Nephrology
DX: N18.32 Chronic kidney disease, stage 3b (principal)
CPT/HCPCS: 36415; 80048; 80069; 82044; 82310; 83970; 85025

== ENCOUNTER → 2022-04-07 09:17 | Outpatient (BNVA) | payer MEDICARE, SELFPAY | PROVIDERS: PCP Nurse Practitioner Family; Visit Provider Nurse Practitioner Family | DX: E11.9 Type 2 diabetes mellitus without complications (principal); I50.32 Chronic diastolic (congestive) heart failure; J06.9 Acute upper respiratory infection, unspecified; I10 Essential (primary) hypertension | CPT/HCPCS: 80053; 80061; 83036; 83880; 85025 ==

== ENCOUNTER → 2022-04-21 08:26 | Outpatient (BNVA) | payer MEDICARE, SELFPAY | PROVIDERS: PCP Nurse Practitioner Family; Visit Provider Nurse Practitioner Family | DX: R06.02 Shortness of breath (principal) | CPT/HCPCS: 71046 ==

== ENCOUNTER 2022-05-03 06:01 | Outpatient (CLI) | payer MEDICARE, SELFPAY ==
--- NOTE | 2022-05-03 06:15 | USCV_ITS ---
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 Right Brachial BP: / Left Brachial BP: / Right Left Velocity (cm/s) Spectral Plaque Velocity (cm/s) Spectral Plaque Syst/Diast Broadening Syst/Diast Broadening 95.80/ 15.30 Prox CCA 86.40 / 14.20 Hetro 88.90/ 8.40 Mid CCA 81.70 / 14.20 Hetro 68.20/ 10.00 Hetro Distal CCA 66.30 / 11.80 Hetro 64.70/ 11.80 Hetro Prox ICA 188.40/ 36.10 Hetro 95.00/ 10.10 Mid ICA 196.40/ 42.10 Hetro 69.70/ 21.00 Distal ICA 182.30/ 40.10 72.00 ECA 244.50 Hetro 1.07 ICA/CCA 2.40 Antegrade Vertebral Antegrade 85.70/ 15.10 cm/s 68.60/ 19.20 cm/s Bi Subclavian Tri 120.8 67.70 0 FINDINGS Moderate to heavy plaques in the proximal, mid and distal ICA on the left side involving the bifurcation. Minimal plaque at the right bifurcation and ICA. Antegrade flow in the vertebral arteries bilaterally. Normal Doppler velocities in the subclavian arteries bilaterally. Elevated Doppler flow velocity in the left external carotid artery Minimal plaques and intimal thickening in the common carotid arteries bilaterally CONCLUSIONS Moderate to heavy plaques in the proximal, mid and distal ICA on the left side involving the bifurcation with the Doppler features suggesting 50 to 69% stenosis. Minimal plaque at the right bifurcation and ICA consistent with less than 50% stenosis. Elevated velocity in the external carotid artery on the left side, suggestive of hemodynamically significant stenosis. Minimal plaques and intimal thickening in the common carotid arteries bilaterally No similar previous studies are available for comparison Dr Migdalia Gonzales MD [facility] (Electronically Signed) Final Date: 03 May 2022 08:19 S
== END 2022-05-03 06:02 | disposition home or self-care (01) ==
LOC: RAD 06:03
PROVIDERS: PCP Nurse Practitioner Family; Visit Provider Internal Medicine Cardiovascular Disease
DX: I77.9 Disorder of arteries and arterioles, unspecified (principal); I65.23 Occlusion and stenosis of bilateral carotid arteries
CPT/HCPCS: 93880

== ENCOUNTER → 2022-07-26 09:24 | Outpatient (BNVA) | payer MEDICARE, SELFPAY | PROVIDERS: PCP Nurse Practitioner Family; Visit Provider Nurse Practitioner Family | DX: R53.83 Other fatigue (principal); R05.8 Other specified cough; I48.20 Chronic atrial fibrillation, unspecified; I25.10 Atherosclerotic heart disease of native coronary artery without angina pectoris; E78.5 Hyperlipidemia, unspecified; I35.8 Other nonrheumatic aortic valve disorders; I10 Essential (primary) hypertension; I65.23 Occlusion and stenosis of bilateral carotid arteries | CPT/HCPCS: 87426; 99214 ==

== ENCOUNTER → 2022-08-09 11:56 | Outpatient (BNVA) | payer MEDICARE, SELFPAY | PROVIDERS: PCP Nurse Practitioner Family; Visit Provider Internal Medicine Cardiovascular Disease | DX: R05.8 Other specified cough (principal) | CPT/HCPCS: 71046; 99214 ==

== ENCOUNTER 2022-08-29 07:38 | Outpatient (CLI) | payer MEDICARE, SELFPAY ==
[2022-08-29 08:14] LABS: Basophils # 0.1 10^3/uL (0.0-0.1); Basophils % 1.5 %; Eosinophils # 0.3 10^3/uL (0.0-0.8); Eosinophils % 5.3 %; Hematocrit 35.4 % (42.0-52.0); Hemoglobin 11.2 g/dL (11.7-16.6); Lymphocytes # 1.4 10^3/uL (0.8-4.8); Lymphocytes % 24.6 %; Mean Corpuscular HGB Conc 31.6 g/dL (30.0-36.0); Mean Corpuscular Hemoglobin 33.3 pg (28.0-34.0); Mean Corpuscular Volume 105.4 fl (80-94); Mean Platelet Volume 9.9 fL (7.4-10.4); Monocytes # 0.7 10^3/uL (0.2-0.9); Monocytes % 12.2 %; Neutrophils # 3.26 10^3/uL (1.8-7.7); Neutrophils % 56.1 %; Nucleated Red Blood Cells % 0 %; Platelet Count 184 10^3/cmm (130-400); Red Blood Count 3.36 10^6/uL (4.1-5.3); Red Cell Distribution Width 12.9 % (12.1-15.1); White Blood Count 5.8 10^3/uL (4.0-10.0)
[2022-08-29 08:26] LABS: Albumin Level 3.8 g/dL (3.5-5.2); Blood Urea Nitrogen 41 mg/dL (8-23); Calcium 9.3 mg/dL (8.5-10.5); Carbon Dioxide 26 mmol/L (22-29); Chloride 100 mmol/L (98-107); Glucose 220 mg/dL (65-115); Phosphorus 2.7 mg/dL (2.5-4.5); Sodium 135 mmol/L (136-145)
[2022-08-29 08:45] LABS: Creatinine Urine, Random 63 mg/dL (39-259); Microalbumin Random Urine 8 ug/dL (0-20)
[2022-08-29 08:47] LABS: Microalbum Creatinine Ratio Ur 127 mg/dL (0-20)
[2022-08-29 14:48] LABS: Calcium 9.4 mg/dL (8.5-10.5); Parathyroid Hormone 48.1 pg/mL (15-65)
== END 2022-08-29 07:39 | disposition home or self-care (01) ==
LOC: LAB 07:41
PROVIDERS: PCP Nurse Practitioner Family; Visit Provider Internal Medicine Nephrology
DX: N18.32 Chronic kidney disease, stage 3b (principal)
CPT/HCPCS: 36415; 80069; 82044; 82310; 83970; 85025

== ENCOUNTER → 2022-10-12 09:00 | Outpatient (BNVA) | payer MEDICARE, SELFPAY | PROVIDERS: PCP Nurse Practitioner Family; Visit Provider Nurse Practitioner Family | DX: E11.65 Type 2 diabetes mellitus with hyperglycemia (principal); I10 Essential (primary) hypertension; N18.4 Chronic kidney disease, stage 4 (severe); Z68.39 Body mass index [BMI] 39.0-39.9, adult; E78.5 Hyperlipidemia, unspecified; I48.0 Paroxysmal atrial fibrillation; R06.02 Shortness of breath; R53.83 Other fatigue; R79.9 Abnormal finding of blood chemistry, unspecified; R60.9 Edema, unspecified; R79.89 Other specified abnormal findings of blood chemistry; I25.10 Atherosclerotic heart disease of native coronary artery without angina pectoris | CPT/HCPCS: 80048; 80061; 80076; 83036; 83880 ==

== ENCOUNTER → 2022-11-21 08:21 | Outpatient (BNVA) | payer MEDICARE, SELFPAY | PROVIDERS: PCP Nurse Practitioner Family; Visit Provider Internal Medicine Cardiovascular Disease | DX: I50.32 Chronic diastolic (congestive) heart failure (principal); R60.9 Edema, unspecified; R79.9 Abnormal finding of blood chemistry, unspecified; I10 Essential (primary) hypertension | CPT/HCPCS: 80048; 83880 ==

== ENCOUNTER → 2022-12-08 08:25 | Outpatient (BNVA) | payer MEDICARE, SELFPAY | PROVIDERS: PCP Nurse Practitioner Family; Visit Provider Internal Medicine Cardiovascular Disease | DX: I50.32 Chronic diastolic (congestive) heart failure (principal); R06.02 Shortness of breath; I25.10 Atherosclerotic heart disease of native coronary artery without angina pectoris; I10 Essential (primary) hypertension | CPT/HCPCS: 80048; 83880 ==

== ENCOUNTER → 2023-02-12 09:48 | Outpatient (BNVA) | payer MEDICARE, SELFPAY | PROVIDERS: PCP Nurse Practitioner Family; Visit Provider Nurse Practitioner Family | DX: E11.621 Type 2 diabetes mellitus with foot ulcer (principal); L97.509 Non-pressure chronic ulcer of other part of unspecified foot with unspecified severity | CPT/HCPCS: 73630 ==

== ENCOUNTER 2023-02-20 08:47 | Outpatient (CLI) | payer MEDICARE, SELFPAY ==
--- NOTE | 2023-02-20 09:30 | USCV_ITS ---
Julius Blake Age: 77 Gender: M : 1945 Exam Date: 02/20/2023 09:11 Ordering Phys: Lashell Burnett NP Technologist: CT [place] [facility] [place]: HISTORY: PROCEDURES: FINDINGS: no dvt/svt, no reflux noted bilaterally pt unable to hold still at times durimg compression/augmentation maneuvers. Rt gsv splits at prx/mid thigh to become very small. Lsv's very small CONCLUSIONS No evidence of DVT in the above-mentioned identifiable veins. No evidence of superficial vein thrombosis. The greater saphenous vein at the mid thigh on the right side, appears to bifurcate. The vein appeared to be tapering off in the below-knee area. The small saphenous veins were not visualized in the below-knee area, on the right side. The greater saphenous vein on the left side was found to be patent and of normal caliber. No significant insufficiency were noted on either side. Dr Migdalia Gonzales MD FAC (Electronically Signed) Final Date: 20 Feb 2023 23:34 S
== END 2023-02-20 08:48 | disposition home or self-care (01) ==
LOC: RAD 08:54
PROVIDERS: PCP Nurse Practitioner Family; Visit Provider Nurse Practitioner Family
DX: R60.0 Localized edema (principal)
CPT/HCPCS: 93970

== ENCOUNTER → 2023-02-21 12:38 | Outpatient (BNVA) | payer MEDICARE, SELFPAY | PROVIDERS: PCP Nurse Practitioner Family; Visit Provider Nurse Practitioner Family | DX: I13.0 Hypertensive heart and chronic kidney disease with heart failure and stage 1 through stage 4 chronic kidney disease, or unspecified chronic kidney disease (principal); E11.22 Type 2 diabetes mellitus with diabetic chronic kidney disease; F17.220 Nicotine dependence, chewing tobacco, uncomplicated; N18.9 Chronic kidney disease, unspecified; Z79.4 Long term (current) use of insulin; I50.32 Chronic diastolic (congestive) heart failure; I35.0 Nonrheumatic aortic (valve) stenosis; I25.10 Atherosclerotic heart disease of native coronary artery without angina pectoris; I65.23 Occlusion and stenosis of bilateral carotid arteries; I48.20 Chronic atrial fibrillation, unspecified; Z79.82 Long term (current) use of aspirin | CPT/HCPCS: 99214 ==

== ENCOUNTER 2023-02-28 09:17 | Outpatient (CLI) | payer MEDICARE, SELFPAY ==
--- NOTE | 2023-02-28 09:30 | USR_ITS ---
PROCEDURE INFORMATION: Exam: US Duplex Lower Extremity Arteries Exam date and time: 02/28/2023 10:22 AM Age: 77 years old Clinical indication: Condition or disease; Other: Non healing ulcer; Additional info: Non healing wound to left second toe TECHNIQUE: Imaging protocol: Real-time ultrasound scan of the arteries of the bilateral lower extremities with 2-D pack scale, color Doppler flow and spectral waveform analysis. Images documented and saved. COMPARISON: No relevant prior studies available. FINDINGS: Right external iliac artery: Mildly abnormal monophasic waveforms with sharp systolic upstroke in the right iliac arteries with elevated velocity and spectral aliasing in the distal right external iliac artery with peak velocity of 170 cm/s. Right common femoral artery: Mild diffuse plaque. Mildly abnormal multiphasic waveform with sharp systolic upstroke and spectral aliasing. Peak velocity 172 cm/s. Right superficial femoral artery: Mild diffuse plaque. Mildly abnormal multiphasic waveform with sharp systolic upstroke and spectral aliasing. Peak velocity 195 cm/s proximally, 122 cm/s in the midportion, and 159 cm/s distally. Right popliteal artery: Mildly abnormal multiphasic waveform with sharp systolic upstroke and spectral aliasing. Peak velocity 162 cm/s. Right calf/foot arteries: Patent posterior tibial and dorsalis pedis arteries with waveform similar to those seen more proximally. Right ankle brachial index 1.1 Left external iliac artery: Morphologically normal multiphasic waveforms in the left iliac arteries with peak velocity proximally of 168 cm/s, and in the midportion 138 cm/s, and distally 125 cm/s. Left common femoral artery: Mildly abnormal multiphasic waveform with spectral aliasing. Peak velocity 143 cm/second. Left superficial femoral artery: Morphologically normal waveform. Mild diffuse plaque. Peak velocity 107 cm/s proximally. Mildly abnormal multiphasic waveform with spectral aliasing in the left mid superficial femoral artery with peak velocity of 140 centimeters/seconds. Similar findings in the distal artery with peak velocity of 141 cm/s. Left popliteal artery: Normal waveform. Peak velocity 114 cm/s. Left calf/foot arteries: The left dorsalis pedis and posterior tibial arteries are patent and demonstrate multiphasic waveforms with spectral aliasing. Left ankle brachial index 1.1 Other findings: Irregular cardiac rhythm. US/CV arterial duplex [facility] [address] IMPRESSION: 1. Irregular cardiac rhythm. 2. 30-49% stenosis in the right proximal superficial femoral artery. 3. Elevated velocity in the right external iliac artery suggesting 30-49% stenosis upstream. 4. Elevated velocity in the right common femoral artery is similar to that seen in the external iliac artery. Focal stenosis is not suspected. 5. Borderline elevated velocity suggesting 30-49% stenosis in the distal right superficial femoral artery and right popliteal artery. 6. Elevated velocity in the left proximal external iliac artery suggesting 30-49% stenosis upstream. 7. No sign of hemodynamically significant stenosis in the left femoral or popliteal arteries. 8. Ankle brachial indices are normal bilaterally.
== END 2023-02-28 09:18 | disposition home or self-care (01) ==
PROVIDERS: PCP Nurse Practitioner Family; Visit Provider Nurse Practitioner Family
DX: I70.201 Unspecified atherosclerosis of native arteries of extremities, right leg (principal)
CPT/HCPCS: 93925

== ENCOUNTER 2023-03-06 07:48 | Outpatient (CLI) | payer MEDICARE, SELFPAY ==
[2023-03-06 09:06] LABS: Albumin Level 3.8 g/dL (3.5-5.2); Anion Gap 12.9 (5-19); Blood Urea Nitrogen 37 mg/dL (8-23); Calcium 8.7 mg/dL (8.5-10.5); Carbon Dioxide 27 mmol/L (22-29); Chloride 104 mmol/L (98-107); Glucose 121 mg/dL (65-115); Phosphorus 2.6 mg/dL (2.5-4.5); Potassium 4.9 mmol/L (3.5-5.1); Sodium 139 mmol/L (136-145)
[2023-03-06 09:21] LABS: 25 Hydroxy Vitamin D 32 ng/mL (30-100)
== END 2023-03-06 07:49 | disposition home or self-care (01) ==
PROVIDERS: PCP Nurse Practitioner Family; Visit Provider Internal Medicine Nephrology
DX: E55.9 Vitamin D deficiency, unspecified (principal); N18.32 Chronic kidney disease, stage 3b
CPT/HCPCS: 36415; 80069; 82306

== ENCOUNTER 2023-03-15 06:23 | Outpatient (CLI) | payer MEDICARE, SELFPAY ==
--- NOTE | 2023-03-15 07:00 | USCV_ITS ---
Julius Blake Age: 77 Gender: M : 1945 Exam Date: 03/15/2023 06:51 Ordering Phys: Christiane Eduardo Technologist: AGUSTIN [place] [facility] [place]: AORTIC STENOSIS BP: 138 / 62 HR: 102 Rhythm: Atrial fibrillation Technical Quality: Adequate MEASUREMENTS (Male / Female) Normal Values 2D ECHO LVOT Diameter 2.0 cm LV Ejection Fraction MOD 2C 56.0 % LV Ejection Fraction 2C AL 55.9 % LA Diameter 4.1 cm LA Width 3.4 cm LA Height 5.1 cm RA Width 4.0 cm RA Height 5.0 cm Aorta at Sinotubular Diameter 2.0 cm M-MODE Aortic Annulus Diameter 2.4 cm LA Ao Ratio MM 1.8 MV E Point Septal Separation 0.4 cm DOPPLER AV Peak Velocity 340.0 cm/s LVOT Peak Velocity 110.0 cm/s AV Area Cont Eq vti 1.0 cm squared AV Area Cont Eq pk 1.0 cm squared MV Peak Velocity 163.0 cm/s MV Area PHT 3.1 cm squared MV E' Velocity 61.0 cm/s Mitral E to MV E' Ratio 11.6 Mitral E to LV E' Lateral Ratio 12.2 Mitral E to LV E' Septal Ratio 11.1 TR Peak Velocity 258.7 cm/s TR Peak Gradient 26.8 mmHg TR Mean Velocity 216.9 cm/s TR Mean Gradient 19.8 mmHg TR Velocity Time Integral 75.0 cm TV Peak E Velocity 67.0 cm/s Right Atrial Pressure 8.0 mmHg Pulmonary Artery Systolic Pressu 34.8 mmHg PV Peak Velocity 136.0 cm/s RV Acceleration Time 0.1 s RV Ejection Time 0.3 s RV AcT/ET 0.4 FINDINGS Left Ventricle Left ventricle is normal in size. LV systolic function is normal with EF of 55 to 60%. No regional wall motion abnormalities are seen. Diastolic function is indeterminate because of atrial fibrillation Right Ventricle Grossly normal Right Atrium Normal in size Left Atrium Normal in size Mitral Valve Structurally normal mitral valve. Mild mitral regurgitation. Aortic Valve Aortic valve is thickened and calcified. Moderate aortic stenosis with aortic valve area 1 cm squared and mean gradient across aortic valve of 23.5 mmHg. Tricuspid Valve Mild tricuspid regurgitation. Pulmonary artery systolic pressure is normal. Pulmonic Valve Not well visualized. Trace pulmonic regurgitation Pericardium Normal Aorta Normal in size IVC Appears to be normal CONCLUSIONS LV systolic function is normal with EF of 55 to 60%. Diastolic function is indeterminate because of atrial fibrillation. Mild mitral regurgitation Aortic valve is thickened and calcified. Moderate aortic stenosis. Mild tricuspid regurgitation Trace pulmonic regurgitation Compared to prior echocardiogram from 10/12/2021, no significant changes are seen Popeye Blandon MD (Electronically Signed) Final Date: 15 March 2023 17:13 S
[2023-03-15] MEDS: perflutren protein-a microsphr 0.22 mg/mL SDV 3 mL IV (07:25)
== END 2023-03-15 06:24 | disposition home or self-care (01) ==
PROVIDERS: PCP Nurse Practitioner Family; Visit Provider Nurse Practitioner Family
DX: I35.0 Nonrheumatic aortic (valve) stenosis (principal); I48.91 Unspecified atrial fibrillation
CPT/HCPCS: C8929; Q9956

== ENCOUNTER → 2023-07-25 11:11 | Outpatient (BNVA) | payer MEDICARE, SELFPAY | PROVIDERS: PCP Nurse Practitioner Family; Visit Provider Nurse Practitioner Family | DX: I10 Essential (primary) hypertension (principal); E11.9 Type 2 diabetes mellitus without complications; E55.9 Vitamin D deficiency, unspecified; N18.4 Chronic kidney disease, stage 4 (severe) | CPT/HCPCS: 80053; 80061; 82306; 83036 ==

== ENCOUNTER → 2023-09-05 11:14 | Outpatient (BNVA) | payer MEDICARE, SELFPAY | PROVIDERS: PCP Nurse Practitioner Family; Visit Provider Internal Medicine Cardiovascular Disease | DX: I25.10 Atherosclerotic heart disease of native coronary artery without angina pectoris (principal); I65.23 Occlusion and stenosis of bilateral carotid arteries; I10 Essential (primary) hypertension; I48.20 Chronic atrial fibrillation, unspecified; E78.5 Hyperlipidemia, unspecified; I35.8 Other nonrheumatic aortic valve disorders; F17.220 Nicotine dependence, chewing tobacco, uncomplicated | CPT/HCPCS: 99214 ==

== ENCOUNTER 2023-09-12 08:06 | Outpatient (CLI) | payer MEDICARE, SELFPAY ==
[2023-09-12 08:34] LABS: Basophils # 0.1 10^3/uL (0.0-0.1); Basophils % 1.7 %; Eosinophils # 0.6 10^3/uL (0.0-0.8); Eosinophils % 8.6 %; Hematocrit 33.5 % (37-53); Lymphocytes # 1.6 10^3/uL (0.8-4.8); Lymphocytes % 23.8 %; Mean Corpuscular HGB Conc 31.9 g/dL (30-55); Mean Corpuscular Hemoglobin 31.8 pg (27-33); Mean Corpuscular Volume 99.4 fl (82-101); Mean Platelet Volume 9.5 fL (7.4-10.4); Monocytes % 15.6 %; Neutrophils # 3.32 10^3/uL (1.8-7.7); Neutrophils % 49.8 %; Nucleated Red Blood Cells % 0 %; Platelet Count 224 10^3/cmm (157-399); Red Blood Count 3.37 10^6/uL (3.85-5.65); Red Cell Distribution Width 12.7 % (12.1-15.1); White Blood Count 6.65 10^3/uL (3.29-11.43)
[2023-09-12 08:55] LABS: Albumin Level 3.6 g/dL (3.5-5.2); Anion Gap 11.8 (5-19); Blood Urea Nitrogen 30 mg/dL (8-23); Calcium 9.1 mg/dL (8.5-10.5); Carbon Dioxide 29 mmol/L (22-29); Chloride 100 mmol/L (98-107); Glucose 186 mg/dL (65-115); Phosphorus 2.2 mg/dL (2.5-4.5); Potassium 4.8 mmol/L (3.5-5.1); Sodium 136 mmol/L (136-145)
[2023-09-12 09:03] LABS: Creatinine Urine, Random 39 mg/dL (39-259); Microalbum Creatinine Ratio Ur 26 mg/dL (0-20); Microalbumin Random Urine 1 ug/dL (0-20)
[2023-09-12 09:05] LABS: Parathyroid Hormone 51.3 pg/mL (15-65)
[2023-09-12 09:09] LABS: 25 Hydroxy Vitamin D 47 ng/mL (30-100)
== END 2023-09-12 08:07 | disposition home or self-care (01) ==
LOC: LAB 08:10
PROVIDERS: PCP Nurse Practitioner Family; Visit Provider Internal Medicine Nephrology
DX: N18.32 Chronic kidney disease, stage 3b (principal)
CPT/HCPCS: 36415; 80069; 82044; 82306; 82310; 83970; 85025

== ENCOUNTER 2023-10-11 08:29 | Outpatient (CLI) | payer MEDICARE, SELFPAY ==
--- NOTE | 2023-10-11 09:10 | USCV_ITS ---
Julius Blake Age: 78 Gender: M : 1945 Exam Date: 10/11/2023 09:28 Ordering Phys: Migdalia Gonzales MD ([email or web address]) Technologist: AGUSTIN Exam Location: [facility] [place] Indication: RIGHT CEA. EVAL FOR CAROTID STENOSIS Risk Factors: Previous Vascular Surgery: Right Brachial BP: / Left Brachial BP: / Right Left Velocity (cm/s) Spectral Plaque Velocity (cm/s) Spectral Plaque Syst/Diast Broadening Syst/Diast Broadening 91.30/ 8.70 Prox CCA 91.70 / 8.00 77.90/ 16.30 Mid CCA 83.70 / 11.50 79.40/ 12.10 Distal CCA 90.70 / 9.20 44.30/ 14.80 Prox ICA 182.30/ 41.00 94.60/ 17.50 Mid ICA 170.80/ 21.80 98.00/ 16.30 Distal ICA 162.90/ 21.80 98.60 ECA 223.50 1.07 ICA/CCA 1.99 Antegrade Vertebral Antegrade 45.40/ 11.50 cm/s 50.00/ 15.80 cm/s Tri Subclavian Tri 110.0 119.6 0 0 FINDINGS Moderate to heavy irregular heterogenous plaques at the left bifurcation and proximal internal carotid artery Intimal thickening and minimal plaques of the right bifurcation Antegrade flow in the vertebral arteries bilaterally Elevated Doppler velocities in the left external carotid artery Normal Doppler flow velocity in the subclavian arteries bilaterally CONCLUSIONS Moderate to heavy irregular heterogenous plaques at the left bifurcation and proximal internal carotid artery with velocity elevation, suggesting 50 to 69% stenosis. Intimal thickening and minimal plaques of the right bifurcation suggesting less than 50% stenosis. Elevated Doppler velocity in the left external carotid artery, suggesting hemodynamically significant stenosis. Compared to the study from 05/03/2022, there may not be significant change Dr Migdlaia Gonzales MD [facility] (Electronically Signed) Final Date: 12 October 2023 19:59 S
== END 2023-10-11 08:30 | disposition home or self-care (01) ==
LOC: RAD 08:30
PROVIDERS: PCP Nurse Practitioner Family; Visit Provider Internal Medicine Cardiovascular Disease
DX: I65.23 Occlusion and stenosis of bilateral carotid arteries
CPT/HCPCS: 93880

== ENCOUNTER → 2024-01-24 08:38 | Outpatient (BNVA) | payer MEDICARE, SELFPAY | PROVIDERS: PCP Nurse Practitioner Family; Visit Provider Nurse Practitioner Family | DX: E11.9 Type 2 diabetes mellitus without complications (principal); I10 Essential (primary) hypertension; N18.4 Chronic kidney disease, stage 4 (severe); E03.9 Hypothyroidism, unspecified; E55.9 Vitamin D deficiency, unspecified | CPT/HCPCS: 83036 ==

== ENCOUNTER → 2024-01-25 09:00 | Outpatient (BNVA) | payer MEDICARE, SELFPAY | PROVIDERS: PCP Nurse Practitioner Family; Visit Provider Nurse Practitioner Family | DX: E11.9 Type 2 diabetes mellitus without complications (principal); I10 Essential (primary) hypertension; N18.4 Chronic kidney disease, stage 4 (severe); E03.9 Hypothyroidism, unspecified; E55.9 Vitamin D deficiency, unspecified | CPT/HCPCS: 80053; 80061; 82306; 84443 ==

== ENCOUNTER 2024-02-12 08:28 | Outpatient (CLI) | payer MEDICARE, SELFPAY ==
[2024-02-12 09:26] LABS: Basophils # 0.1 10^3/uL (0.0-0.1); Basophils % 1.4 %; Eosinophils # 0.5 10^3/uL (0.0-0.8); Eosinophils % 7.2 %; Hematocrit 38.2 % (37-53); Lymphocytes # 1.7 10^3/uL (0.8-4.8); Lymphocytes % 27.6 %; Mean Corpuscular HGB Conc 32.5 g/dL (30-55); Mean Corpuscular Hemoglobin 33.2 pg (27-33); Mean Corpuscular Volume 102.4 fl (82-101); Monocytes # 0.8 10^3/uL (0.2-0.9); Monocytes % 12.2 %; Neutrophils % 51.3 %; Nucleated Red Blood Cells % 0 %; Platelet Count 182 10^3/cmm (157-399); Red Blood Count 3.73 10^6/uL (3.85-5.65); Red Cell Distribution Width 13.2 % (12.1-15.1); White Blood Count 6.24 10^3/uL (3.29-11.43)
[2024-02-12 09:44] LABS: Anion Gap 13.4 (5-19); Blood Urea Nitrogen 33 mg/dL (8-23); Calcium 8.7 mg/dL (8.5-10.5); Carbon Dioxide 28 mmol/L (22-29); Chloride 99 mmol/L (98-107); Glucose 194 mg/dL (65-115); Phosphorus 2.6 mg/dL (2.5-4.5); Potassium 4.4 mmol/L (3.5-5.1); Sodium 136 mmol/L (136-145)
[2024-02-12 09:51] LABS: Creatinine Urine, Random 60 mg/dL (39-259); Microalbum Creatinine Ratio Ur 17 mg/dL (0-20); Microalbumin Random Urine 1 ug/dL (0-20)
[2024-02-12 09:54] LABS: Calcium 8.5 mg/dL (8.5-10.5); Parathyroid Hormone 66.2 pg/mL (15-65)
== END 2024-02-12 08:29 | disposition home or self-care (01) ==
PROVIDERS: PCP Nurse Practitioner Family; Visit Provider Registered Nurse
DX: N18.32 Chronic kidney disease, stage 3b (principal)
CPT/HCPCS: 36415; 80069; 82044; 82310; 83970; 85025

== ENCOUNTER → 2024-02-22 08:46 | Outpatient (BNVA) | payer MEDICARE, SELFPAY | PROVIDERS: PCP Nurse Practitioner Family; Visit Provider Nurse Practitioner Family | DX: R19.7 Diarrhea, unspecified (principal) | CPT/HCPCS: 74018 ==

== ENCOUNTER → 2024-02-26 09:07 | Outpatient (BNVA) | payer MEDICARE, SELFPAY | PROVIDERS: PCP Nurse Practitioner Family; Visit Provider Nurse Practitioner Family | DX: R19.7 Diarrhea, unspecified (principal) | CPT/HCPCS: 82272; 87324; 87493 ==

== ENCOUNTER → 2024-03-14 10:00 | Outpatient (BNVA) | payer MEDICARE, SELFPAY | PROVIDERS: PCP Nurse Practitioner Family; Visit Provider Nurse Practitioner Family | DX: R19.7 Diarrhea, unspecified (principal) | CPT/HCPCS: 87493 ==

== ENCOUNTER → 2024-03-24 08:20 | Outpatient (BNVA) | payer MEDICARE, SELFPAY | PROVIDERS: PCP Nurse Practitioner Family; Visit Provider Nurse Practitioner Family | DX: E03.9 Hypothyroidism, unspecified (principal) | CPT/HCPCS: 84443 ==

== ENCOUNTER → 2024-04-07 11:00 | Outpatient (BNVA) | payer MEDICARE, SELFPAY | PROVIDERS: PCP Nurse Practitioner Family; Visit Provider Nurse Practitioner Family | DX: R19.5 Other fecal abnormalities (principal) | CPT/HCPCS: 87493 ==

== ENCOUNTER → 2024-04-21 09:40 | Outpatient (BNVA) | payer MEDICARE, SELFPAY | PROVIDERS: PCP Nurse Practitioner Family; Visit Provider Nurse Practitioner Family | DX: K92.1 Melena (principal); R19.7 Diarrhea, unspecified | CPT/HCPCS: 80053; 83630; 85025; 87045; 87177; 87209; 87427; 87449 ==

== ENCOUNTER → 2024-07-24 09:17 | Outpatient (BNVA) | payer MEDICARE, SELFPAY | PROVIDERS: PCP Nurse Practitioner Family; Visit Provider Nurse Practitioner Family | DX: I10 Essential (primary) hypertension (principal) | CPT/HCPCS: 80053; 80061; 83036 ==

== ENCOUNTER → 2024-10-29 10:31 | Outpatient (BNVA) | payer MEDICARE, SELFPAY | PROVIDERS: PCP Nurse Practitioner Family; Visit Provider Nurse Practitioner Family | DX: E11.9 Type 2 diabetes mellitus without complications (principal) | CPT/HCPCS: 83036 ==

== ENCOUNTER → 2024-11-10 10:36 | Outpatient (BNVA) | payer MEDICARE, SELFPAY | PROVIDERS: PCP Nurse Practitioner Family; Visit Provider Internal Medicine Cardiovascular Disease | DX: I25.10 Atherosclerotic heart disease of native coronary artery without angina pectoris (principal); I65.23 Occlusion and stenosis of bilateral carotid arteries; I10 Essential (primary) hypertension; I48.20 Chronic atrial fibrillation, unspecified; E78.5 Hyperlipidemia, unspecified; I35.8 Other nonrheumatic aortic valve disorders | CPT/HCPCS: 99214 ==

== ENCOUNTER → 2025-01-27 09:00 | Outpatient (BNVA) | payer MEDICARE, SELFPAY | PROVIDERS: PCP Nurse Practitioner Family; Visit Provider Nurse Practitioner Family | DX: I10 Essential (primary) hypertension (principal); E11.65 Type 2 diabetes mellitus with hyperglycemia; I25.10 Atherosclerotic heart disease of native coronary artery without angina pectoris; N18.4 Chronic kidney disease, stage 4 (severe) | CPT/HCPCS: 80053; 80061; 82043; 83036 ==

== ENCOUNTER 2025-02-09 07:43 | Outpatient (CLI) | payer MEDICARE, SELFPAY ==
[2025-02-09 08:50] LABS: Creatinine Urine, Random 46 mg/dL (39-259); Microalbumin Random Urine 2 ug/dL (0-20)
[2025-02-09 08:52] LABS: Microalbum Creatinine Ratio Ur 43 mg/dL (0-20)
[2025-02-09 09:11] LABS: Basophils # 0.1 10^3/uL (0.0-0.1); Basophils % 1.4 %; Eosinophils # 0.3 10^3/uL (0.0-0.8); Eosinophils % 5.1 %; Hematocrit 39.5 % (37-53); Lymphocytes # 1.6 10^3/uL (0.8-4.8); Lymphocytes % 26.5 %; Mean Corpuscular HGB Conc 32.4 g/dL (30-55); Mean Corpuscular Volume 101.8 fl (82-101); Mean Platelet Volume 10.5 fL (7.4-10.4); Monocytes # 0.7 10^3/uL (0.2-0.9); Neutrophils # 3.18 10^3/uL (1.8-7.7); Neutrophils % 54.3 %; Nucleated Red Blood Cells % 0 %; Platelet Count 173 10^3/cmm (157-399); Red Blood Count 3.88 10^6/uL (3.85-5.65); Red Cell Distribution Width 13.6 % (12.1-15.1); White Blood Count 5.85 10^3/uL (3.29-11.43)
[2025-02-09 09:33] LABS: Albumin Level 3.9 g/dL (3.5-5.2); Anion Gap 16.8 (5-19); Blood Urea Nitrogen 30 mg/dL (8-23); Calcium 9.1 mg/dL (8.5-10.5); Calcium 9.5 mg/dL (8.5-10.5); Carbon Dioxide 27 mmol/L (22-29); Chloride 98 mmol/L (98-107); Glucose 222 mg/dL (65-115); Phosphorus 2.2 mg/dL (2.5-4.5); Potassium 4.8 mmol/L (3.5-5.1); Sodium 137 mmol/L (136-145)
[2025-02-09 09:41] LABS: Parathyroid Hormone 51.9 pg/mL (15-65)
== END 2025-02-09 07:44 | disposition home or self-care (01) ==
PROVIDERS: PCP Nurse Practitioner Family; Visit Provider Registered Nurse
DX: N18.32 Chronic kidney disease, stage 3b (principal)
CPT/HCPCS: 36415; 80069; 82044; 82310; 83970; 85025

== ENCOUNTER → 2025-07-28 09:00 | Outpatient (BNVA) | payer MEDICARE, SELFPAY | PROVIDERS: PCP Nurse Practitioner Family; Visit Provider Nurse Practitioner Family | DX: I10 Essential (primary) hypertension (principal); E11.9 Type 2 diabetes mellitus without complications; E03.9 Hypothyroidism, unspecified | CPT/HCPCS: 80053; 80061; 83036; 84443; 85025 ==

== ENCOUNTER → 2025-08-03 12:14 | Outpatient (BNVA) | payer MEDICARE, SELFPAY | PROVIDERS: PCP Nurse Practitioner Family; Visit Provider Nurse Practitioner Family | DX: I25.10 Atherosclerotic heart disease of native coronary artery without angina pectoris (principal); I35.0 Nonrheumatic aortic (valve) stenosis; I65.23 Occlusion and stenosis of bilateral carotid arteries; I10 Essential (primary) hypertension; I48.20 Chronic atrial fibrillation, unspecified; E78.5 Hyperlipidemia, unspecified | CPT/HCPCS: 99214 ==

== ENCOUNTER 2025-08-25 08:06 | Outpatient (CLI) | payer MEDICARE, SELFPAY ==
--- NOTE | 2025-08-25 08:30 | USCV_ITS ---
Julius Blake Age: 80 Gender: M : 1945 Exam Date: 08/25/2025 08:35 Ordering Phys: Christiane Eduardo Technologist: Exam Location: [facility] – [place] Indication: ao BP: 130 / 80 HR: 92 Rhythm: Sinus Technical Quality: MEASUREMENTS (Male / Female) Normal Values 2D ECHO LV Diastolic Diameter PLAX 3.8 cm 4.2 - 5.9 / 3.9 - 5.3 cm IVS Diastolic Thickness 1.6 cm 0.6 - 1.0 / 0.6 - 0.9 cm IVS Systolic Thickness 1.7 cm LVPW Diastolic Thickness 1.9 cm 0.6 - 1.0 / 0.6 - 0.9 cm LVPW Systolic Thickness 1.6 cm LVOT Diameter 2.0 cm LV Ejection Fraction 2D Teich 65.6 % LV Ejection Fraction MOD 4C 59.2 % LV Ejection Fraction MOD 2C 71.5 % LV Ejection Fraction 2C AL 72.4 % LA Diameter 4.2 cm RA Systolic Volume 4C AL 66.7 ml RA Systolic Volume 4C MOD 64.9 ml Aorta at Sinotubular Diameter 3.2 cm M-MODE LA Ao Ratio MM 2.3 AV Cusp Separation MM 1.2 cm DOPPLER AV Peak Velocity 303.7 cm/s LVOT Peak Velocity 83.0 cm/s AV Area Cont Eq vti 0.8 cm squared AV Area Cont Eq pk 0.9 cm squared MV Peak Velocity 122.0 cm/s MV Area PHT 5.3 cm squared Mitral E to A Ratio 2.6 TR Peak Velocity 215.0 cm/s TR Peak Gradient 18.5 mmHg TV Peak E Velocity 113.0 cm/s PV Peak Velocity 133.0 cm/s FINDINGS Left Ventricle Mild concentric LVH. Normal LV systolic function, with no regional wall motion abnormalities. Estimated LVEF normal 60%. Right Ventricle Normal right ventricular size and systolic function. Right Atrium Normal right atrial size. Left Atrium Mildly dilated left atrium. IA Septum Normal interatrial septum. Mitral Valve Structurally normal mitral valve. Trace mitral valve regurgitation. Aortic Valve Thickened calcified aortic valve leaflets. There is mild to moderate aortic regurgitation (PHT 439 ms). There is mild to moderate aortic stenosis (AV-max 3 m/s, AV max gradient 39, mean gradient 20). Tricuspid Valve Structurally normal tricuspid valve. Trace tricuspid valve regurgitation. TVPG 18 mmHg. Normal pulmonary pressures Pulmonic Valve Pulmonic valve not well visualized. Trace pulmonary valve regurgitation. Pericardium No pericardial effusion. Aorta Normal aorta size at proximal ascending aorta. IVC Inferior vena cava not visualized. CONCLUSIONS Mild concentric LVH. Normal LV systolic function. Estimated LVEF normal 60%. Normal RV size and systolic function. Thickened calcified aortic valve mild to moderate aortic regurgitation and stenosis. Normal right heart and pulmonary pressures. Bandar Saxena MD (Electronically Signed) Final Date: 25 August 2025 13:50 S
== END 2025-08-25 08:07 | disposition home or self-care (01) ==
LOC: RAD 08:08
PROVIDERS: PCP Nurse Practitioner Family; Visit Provider Nurse Practitioner Family
DX: I35.0 Nonrheumatic aortic (valve) stenosis (principal); I35.8 Other nonrheumatic aortic valve disorders
CPT/HCPCS: 93306